=== PATIENT | male | born 1980 | race Caucasian/White ===

== ENCOUNTER 2016-09-04 14:05 | Emergency (ER) | payer SELFPAY ==
[~2016-09-04] VITALS: Ht 185.4 cm; Wt 85.0 kg
--- NOTE | 2016-09-04 14:09 | PD ---
HPI Chief Complaint: altered mental status Time Seen by Provider: 14:09 Travel History International Travel<30 days: No Contact w/Intl Traveler<30days: No Traveled to known affect area: No History of Present Illness HPI 35-year-old male was brought to the emergency room by EMS with history of being found outside the [employer] building altered mental status. The security caught outside the building saw him wandering around upon asking he was told that patient probably had a seizure. Patient was extremely intoxicated and lethargic. As per the paramedics he is on methadone. He was slightly tachycardic upon arrival. He would wake up and open his eyes but the speech was very slurred. Mostly mumbling. Patient was not a reliable historian at that point. [facility] Past Medical History Narrative Medical Unknown past medical, surgical social history. Social History Tobacco Use: Yes Allergies-Medications (Allergen,Severity, Reaction): Coded Allergies: No Known Allergies (Unverified , 09/05/16) Comments No known drug allergies. Reported Meds & Prescriptions Reported Meds & Active Scripts Active Levaquin (Levofloxacin) 750 Mg Tab 750 Mg PO DAILY 7 Days Reported Methadone (Methadone HCl) 40 Mg Tab 45 Mg PO DAILY Seroquel (Quetiapine Fumarate) 300 Mg Tab 300 Mg PO DAILY Narrative Medication List of his medications reviewed from the nursing note. Review of Systems ROS Limitations: Intoxication, Altered Mental Status Except as stated in HPI: all other systems reviewed are Neg Physical Exam Exam Limitations: Intoxication, Altered Mental Status, Poor Historian Narrative GENERAL: Lethargic, somnolent, slurred speech SKIN: Warm and dry. HEAD: Atraumatic. Normocephalic. EYES: Pupils equal and round. No scleral icterus. No injection or drainage. ENT: No nasal bleeding or discharge. Mucous membranes pink and moist. NECK: Trachea midline. No JVD. CARDIOVASCULAR: Regular rate and rhythm. No murmur appreciated. RESPIRATORY: No accessory muscle use. Clear to auscultation. Breath sounds equal bilaterally. GASTROINTESTINAL: Abdomen soft, non-tender, nondistended. Hepatic and splenic margins not palpable. MUSCULOSKELETAL: No obvious deformities. No clubbing. No cyanosis. No edema. NEUROLOGICAL: GCS of 13. No obvious cranial nerve deficits. Motor grossly within normal limits. Slurred speech. PSYCHIATRIC: Appropriate mood and affect; insight and judgment normal. Data Data Last Documented VS Vital Signs Date Time Temp Pulse Resp B/P Pulse Ox O2 Delivery O2 Flow Rate FiO2 09/04/16 17:25 100 09/04/16 15:13 99 21 143/89 Nasal Cannula 2 09/04/16 14:10 98.3 Orders Electrocardiogram (09/04/16 ) Naloxone Inj (Narcan Inj) (09/04/16 14:13) Naloxone Inj (Narcan Inj) (09/04/16 14:16) MDM Medical Decision Making Medical Screen Exam Complete: Yes Emergency Medical Condition: Yes Medical Record Reviewed: Yes Interpretation(s) Twelve-lead EKG was reviewed by me. Normal sinus rhythm, normal axis, nonspecific ST-T wave changes, tachycardia. Heart rate of 103 bpm. Differential Diagnosis Methadone Overdose, postictal Narrative Course 4:21 PM patient had received 2 mg of Narcan initially when he came in. However there was a leak in the IV connector and some medication leaked out. He was given additional 2 mg of Narcan IV soon after which he woke up and started talking. His respirations improved inserted the oxygen saturation. He told me that he has been in halfway for 90 days and was released 3 days ago. He was going to the methadone clinic prior to going to halfway. He did not receive any methadone or any form of opiates in the halfway. He was in withdrawal for first 3 weeks but after that he did fine. However once he came out of the halfway he went back to the methadone clinic. He said he was supposed to be on 25 mg of methadone but today he received 45 mg which she took it. He does not remember what happened after that. He does not remember wondering off in front of the [employer] building. He does not remember the ambulance ride. He doesn't think he had any seizures. He does not have any history of seizures. He is completely sober at this point. I let him know that since he was off opiates for 90 days and technically did detox and that he should not have gone back to the methadone. I have put this on the discharge instructions and he should not receive any more methadone from the methadone clinic. Patient admitted that he has addiction issues. He is calling his friend to come and pick him up. Procedures EKG Prior to Arrival: Yes Diagnosis Primary Impression: Opiate overdose Qualified Code: T40.601A - Opiate overdose, accidental or unintentional, initial encounter Additional Impression: Opiate addiction Qualified Code: F11.229 - Opioid dependence with intoxication with complication Referrals: Primary Care Physician 2 days Additional Instructions: You do not need to be on methadone since you have been off opiates for 90 days while he was in halfway. At this point. Prefer to go back to methadone that could be considered addiction. The painting manager needs to know that and realizes that he should not picture back on methadone. Med/Other Pt SpecificInfo: No Change to Meds Disposition: 01 DISCHARGE HOME Condition: Stable Chloe Khan MD Sep 04, 2016 14:09
[2016-09-04 14:10] VITALS: BP 145/87; PULSE 110; RESP 12; TEMP 98.3; O2SAT 88
[2016-09-04] MEDS ORDERED: NALOXONE HCL 2 MG/2 ML VIAL ONE ×2 (14:13→14:16)
[2016-09-04 14:15] VITALS: O2SAT 95
[2016-09-04] MEDS ORDERED: SERO300T PO (14:26)
[2016-09-04] MEDS ORDERED: METH40TA PO (14:26)
[2016-09-04 14:29] VITALS: BP 154/88; PULSE 107; RESP 19; O2SAT 99
[2016-09-04 15:13] VITALS: BP 143/89; PULSE 99; RESP 21; O2SAT 98
[2016-09-05] MEDS ORDERED: LEVA750T PO (14:35)
--- NOTE | 2016-09-06 | EKG ---
Date Performed: 09/04/2016 Time Performed: 14:13:50 PTAGE: 35 years EKG: SINUS TACHYCARDIA NONSPECIFIC T-WAVE ABNORMALITY ABNORMAL RHYTHM ECG NO PREVIOUS TRACING DOCTOR: Segundo Koroma Interpretating Date/Time 09/05/2016 23:59:45
--- NOTE | 2016-09-09 13:46 | PD.CONS ---
Provisional Diagnosis Admission Date Chilo I. Substance induced mood disorder, opioids uses disorder, on methadone, benzodiazepine use disorder Chilo II. deferred Chilo III. HTN Chilo IV. history of incarcerations and and drugs use disorder Chilo V. 54 History of Present Illness Service Psychiatry Consult Requested By Primary Care Physician Unknown HPI The patient is a 35 years old man, domiciled with his aunt in [place], employed, single, with psychiatric history of opiate use disorder, on a methadone program, benzodiazepines use disorder, history of alcohol use disorder , no previous psychiatric hospitalizations, no previous suicidal attempts, history of incarcerations due to drug-related problems, medical history hypertension, who was brought to the hospital lethargic almost unconscious, in the context of thought overdose with methadone and benzodiazepines. Patient was admitted in the ICU, his mother has expressed the concern that patient might potentially overdosed with SI. Patient was seen for psychiatric evaluation in the ICU, patient was found sitting in a chair, he was calm, cooperative and pleasant. Patient explained that he has been in methadone 180 mg daily for about 3 years. At times he uses benzodiazepines and Seroquel to help him to sleep. He says that he get Xanax and the Seroquel in the street, he says he just do it occasionally. What happened was that he was in [facility] for about 90 days for violation of parole, came out a couple of days ago, went to his methadone program, was restarted in his usual methadone dose, he also used some alcohol and Xanax, but when he used it he passed out. He clarifies that he was not intending to commit suicide, in his mind he was taking his regular dose of methadone "with some Xanax as I have done before, but I get is that since he was a long time with a using the methadone while I was in [facility] my body reacted this way". He denies depressive symptoms, such as anhedonia, hopelessness, helplessness, low energy, low appetite, problems sleeping, he denies suicidal and homicidal ideation, he denies visual and auditory hallucinations. 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 No paranoia, delusions, agitation, aggressive behavior, ideas of reference, thought control was observed or reported at this time. Patient is oriented 3, no gross cognitive impairment observed. His mother, Anali, which by phone [phone], explained that she never say that her son tried to commit suicide, she is says she told to the staff that her son is going to when they for his use of drugs, which is different. She confirms that her son doesn't have any psychiatric history, he has been abusing drugs for a long time, however he has been looking for help and tried to cut his drug use and methadone seems to be helping. Since he is using methadone he has been working more engage in doing useful things, but the problem is the methadone is not enough to stopping use other drugs, he mother states. She does not have any safety concern at this moment, she doesn't think that her son needs psychiatric hospitalization. Review of Systems Constitutional: DENIES: Diaphoretic episodes, Fatigue, Fever, Weight gain, Weight loss, Chills, Dizziness, Change in appetite, Night Sweats Endocrine: DENIES: Heat/cold intolerance, Polydipsia, Polyuria, Polyphagia Eyes: DENIES: Blurred vision, Diplopia, Eye inflammation, Eye pain, Vision loss , Photosensitivity, Double Vision Respiratory: DENIES: Apneas, Cough, Snoring, Wheezing, Hemoptysis, Sputum production, Shortness of breath Cardiovascular: DENIES: Chest pain, Palpitations, Syncope, Dyspnea on Exertion , PND, Lower Extremity Edema, Orthopnea, Claudication Gastrointestinal: DENIES: Abdominal pain, Black stools, Bloody stools, Constipation, Diarrhea, Nausea, Vomiting, Difficulty Swallowing, Anorexia Musculoskeletal: DENIES: Joint pain, Muscle aches, Stiffness, Joint Swelling, Back pain, Neck pain Integumentary: DENIES: Abnormal pigmentation, Nail changes, Pruritus, Rash Hematologic/lymphatic: DENIES: Bruising, Lymphadenopathy Immunologic/allergic: DENIES: Eczema, Urticaria Neurologic: DENIES: Abnormal gait, Headache, Localized weakness, Paresthesias, Seizures, Speech Problems, Tremor, Poor Balance Psychiatric: DENIES: Anxiety, Confusion, Mood changes, Depression, Hallucinations, Agitation, Suicidal Ideation, Homicidal Ideation, Delusions Past Family Social History Coded Allergies: No Known Allergies (Unverified , 09/05/16) Active Scripts Levofloxacin (Levaquin)750 Mg [id number] Mg PO DAILY 7 Days Ref 0 Prov:Deena Guzman DO 09/05/16 Reported Medications Methadone 40 Mg Tab45 Mg PO DAILY Ref 0 09/04/16 Quetiapine (Seroquel)300 Mg [id number] Mg PO DAILY #30 TAB Ref 0 09/04/16 Methadone 180 mg, this dose is not confirmed Family History He denies Social History Patient was born and raised in [place], he lives with his aunt in [place], work in a sole company, he is single, no kids, his highest level of education is high school Mental Status Examination Appearance man, athletic complexity, good hygiene, [facility], he is calm and cooperative Speech: Unremarkable Orientation: x3 Memory: Unremarkable Thought Process: Logical Thought Content: Unremarkable Hallucination Type: None Suicidal Ideation: No Previous Suicide Attempts: No Homicidal Ideation: No Previous Homicide Attempts: No Insight: Good Judgement: WNL Affect: Good Mood: Appropriate Motor Activity: Normal gait Assessment & Plan Problem List: (1) Opiate addiction ICD Code: F11.20 (2) Methadone dependence Assessment & Plan: At the moment of this evaluation the patient does not present any significant, acute or concerning objective or subjective symptomatology of depression, anxiety, caitlyn or psychosis. Patient denies suicidal or homicidal ideation, he denies visual and auditory hallucinations. Patient is calm, cooperative, pleasant, coherent and logical in his interaction with psychiatrist. His recent overdose with methadone and benzodiazepines since to be consequence of an accident and poor judgment, since patient was in [facility] days and was restarted in a high dose of methadone and in top of that he used benzodiazepines, rather than a suicidal intention/depression. His mother, use as a collateral information, clarifies that she is in total agreement with the idea that the patient did not try to overdose with suicidal intention and he doesn't benefit of a psychiatric hospitalization. At this moment the patient doesn't need any immediate psychiatric intervention, he does not meet criteria for inpatient admission. Tam act will be lifted. Extensive support, motivation psycho education provided. Patient is psychiatrically cleared to be discharged continue his methadone program. ICD Code: F11.20 (3) Opiate overdose ICD Code: T40.601A Assessment & Plan Estimated LOS: days Problem Qualifiers (1) Opiate addiction: Qualified Code: F11.229 - Opioid dependence with intoxication with complication (2) Opiate overdose: Qualified Code: T40.601A - Opiate overdose, accidental or unintentional, initial encounter Golden Ray MD Sep 09, 2016 13:46
== END 2016-09-04 17:40 | disposition home or self-care (01) ==
LOC: NEPC 14:05
DX: F11.229 Opioid dependence with intoxication, unspecified (principal); R00.0 Tachycardia, unspecified
CPT/HCPCS: 93005; 96374; 99285; J2310

== ENCOUNTER 2016-09-05 08:33 | Inpatient (IN) | payer OTHER ==
[2016-09-05] VITALS (14 sets, daily range): BP systolic 103–148; BP diastolic 56–93; PULSE 79–108; RESP 8–21; TEMP 97.8–98.3; O2SAT 88–100
[~2016-09-05] VITALS: Ht 182.9 cm; Wt 80.3 kg
[~2016-09-05 08:33] MED LIST: METH40TA PO; SERO300T PO
[2016-09-05] MEDS ORDERED: SODIUM CHLORIDE 0.9% FLUSH 5 ML FLUSH IVF PRN (08:45)
[2016-09-05] MEDS ORDERED: SODIUM CHLOR 0.9% 1000 ML INJ 1,000 ML IV ONE (08:45)
--- NOTE | 2016-09-05 08:51 | PD ---
HPI Chief Complaint: AMS Time Seen by Provider: 08:41 Travel History International Travel<30 days: No Contact w/Intl Traveler<30days: No History of Present Illness HPI Patient is a 35-year-old male who presents to emergency room by a EVAC for evaluation of lethargy. As per EMS, patient was found in the bathroom of the methadone clinic sleeping. Patient did not receive his daily dose of methadone yet, patient denies using any drugs or alcohol last night. Patient reports that he is just tired as he did not sleep last night at all. Patient denies suicidal or homicidal ideations. Patient denies any chest pain or shortness of breath. Patient with no complaints while in the emergency room. PFSH Past Medical History Bipolar Disorder: Yes Anxiety: Yes Depression: Yes Diminished Hearing: No Inguinal Hernia: Yes Musculoskeletal: Yes (CHRONIC NECK AND BACK ) Psychiatric: Yes Immunizations Current: No Past Surgical History Abdominal Surgery: Yes (HERNIA REPAIR ) Social History Alcohol Use: No Tobacco Use: Yes Substance Use: Yes (OPIATES , ON METHADONE ) Allergies-Medications (Allergen,Severity, Reaction): Coded Allergies: No Known Allergies (Unverified , 09/05/16) Reported Meds & Prescriptions Reported Meds & Active Scripts Active Levaquin (Levofloxacin) 750 Mg Tab 750 Mg PO DAILY 7 Days Reported Methadone (Methadone HCl) 40 Mg Tab 45 Mg PO DAILY Seroquel (Quetiapine Fumarate) 300 Mg Tab 300 Mg PO DAILY Review of Systems General / Constitutional: No: Fever Eyes: No: Visual changes HENT: No: Headaches Cardiovascular: No: Chest Pain or Discomfort Respiratory: No: Shortness of Breath Gastrointestinal: No: Abdominal Pain Genitourinary: No: Dysuria Musculoskeletal: No: Pain Skin: No Rash Neurologic: No: Weakness Psychiatric: No: Depression Endocrine: No: Polydipsia Hematologic/Lymphatic: No: Easy Bruising Physical Exam Narrative GENERAL: No acute distress, nontoxic SKIN: Warm and dry. HEAD: Atraumatic. Normocephalic. EYES: Pupils equal and round. No scleral icterus. No injection or drainage. Pupils are 3 and reactive ENT: No nasal bleeding or discharge. Mucous membranes pink and moist. NECK: Trachea midline. No JVD. CARDIOVASCULAR: Regular rate and rhythm. No murmur appreciated. RESPIRATORY: No accessory muscle use. Clear to auscultation. Breath sounds equal bilaterally. GASTROINTESTINAL: Abdomen soft, non-tender, nondistended. Hepatic and splenic margins not palpable. MUSCULOSKELETAL: No obvious deformities. No clubbing. No cyanosis. No edema. NEUROLOGICAL: Awake and alert. No obvious cranial nerve deficits. Motor grossly within normal limits. Normal speech. Data Data Last Documented VS Vital Signs Date Time Temp Pulse Resp B/P Pulse Ox O2 Delivery O2 Flow Rate FiO2 09/05/16 16:00 100 100 09/05/16 15:42 98 8 103/65 Non-Rebreather 09/05/16 14:21 3 09/05/16 08:40 97.8 Orders Complete Blood Count With Diff (09/05/16 08:41) Comprehensive Metabolic Panel (09/05/16 08:41) Urinalysis - C+S If Indicated (09/05/16 08:41) Electrocardiogram (09/05/16 08:41) Oximetry (09/05/16 08:41) Iv Access Insert/Monitor (09/05/16 08:41) Ecg Monitoring (09/05/16 08:41) Sodium Chloride 0.9% Flush (Ns Flush) (09/05/16 08:45) Drug Screen, Random Urine (09/05/16 08:41) Alcohol (Ethanol) (09/05/16 08:41) Salicylates (Aspirin) (09/05/16 08:41) Tylenol (Acetaminophen) (09/05/16 08:41) Sodium Chlor 0.9% 1000 Ml Inj (Ns 1000 M (09/05/16 08:45) Chest, Single Ap (09/05/16 ) Ct Brain W/O Iv Contrast(Rout) (09/05/16 ) Urine Culture (09/05/16 11:00) Azithromycin (Zithromax) (09/05/16 12:45) Levofloxacin 750 Mg Premix Inj (Levaquin (09/05/16 14:45) Ct Pulmonary Angiogram (09/05/16 14:36) Naloxone Inj (Narcan Inj) (09/05/16 15:44) Naloxone Inj (Narcan Inj) (09/05/16 15:46) Ondansetron Inj (Zofran Inj) (09/05/16 15:47) Etomidate Inj (Amidate Inj) (09/05/16 15:50) Succinylcholine Inj (Quelicin Inj) (09/05/16 15:50) Chest, Single Ap (09/05/16 ) Propofol 1000 Mg/100 Ml Inj (Diprivan 10 (09/05/16 16:00) Succinylcholine Inj (Quelicin Inj) (09/05/16 16:00) Etomidate Inj (Amidate Inj) (09/05/16 16:00) Ob/Psych Drug Screen, Urine (09/05/16 16:05) Ammonia (09/05/16 16:05) Iohexol 350 Inj (Omnipaque 350 Inj) (09/05/16 16:07) Admit Order (Ed Use Only) (09/05/16 16:07) Electrocardiogram (09/05/16 ) Ur Bath Salts (09/05/16 11:00) Ur Heroin (09/05/16 11:00) Ur K2 Spice (09/05/16 11:00) Ur Ecstasy (09/05/16 11:00) Ur Methadone (09/05/16 11:00) Phencyclidine Urine (Pcp) (09/05/16 11:00) Labs Laboratory Tests Test 09/05/16 09/05/16 08:50 11:00 White Blood Count 11.2 TH/MM3 Red Blood Count 4.09 MIL/MM3 Hemoglobin 11.8 GM/DL Hematocrit 34.9 % Mean Corpuscular Volume 85.4 FL Mean Corpuscular Hemoglobin 28.9 PG Mean Corpuscular Hemoglobin 33.8 % Concent Red Cell Distribution Width 15.6 % Platelet Count 257 TH/MM3 Mean Platelet Volume 7.7 FL Neutrophils (%) (Auto) 69.3 % Lymphocytes (%) (Auto) 19.0 % Monocytes (%) (Auto) 8.8 % Eosinophils (%) (Auto) 2.3 % Basophils (%) (Auto) 0.6 % Neutrophils # (Auto) 7.8 TH/MM3 Lymphocytes # (Auto) 2.1 TH/MM3 Monocytes # (Auto) 1.0 TH/MM3 Eosinophils # (Auto) 0.3 TH/MM3 Basophils # (Auto) 0.1 TH/MM3 CBC Comment DIFF FINAL Differential Comment Sodium Level 138 MEQ/L Potassium Level 3.5 MEQ/L Chloride Level 101 MEQ/L Carbon Dioxide Level 29.4 MEQ/L Anion Gap 8 MEQ/L Blood Urea Nitrogen 14 MG/DL Creatinine 0.84 MG/DL Estimat Glomerular Filtration 103 ML/MIN Rate Random Glucose 123 MG/DL Calcium Level 8.7 MG/DL Total Bilirubin 0.3 MG/DL Aspartate Amino Transf 28 U/L (AST/SGOT) Alanine Aminotransferase 17 U/L (ALT/SGPT) Alkaline Phosphatase 130 U/L Total Protein 7.5 GM/DL Albumin 3.4 GM/DL Salicylates Level LESS THAN 1.7 MG/DL Acetaminophen Level LESS THAN 2.0 MCG/ML Ethyl Alcohol Level LESS THAN 3 MG/DL Urine Color YELLOW Urine Turbidity CLEAR Urine pH 5.5 Urine Specific Archer 1.012 Urine Protein TRACE mg/dL Urine Glucose (UA) NEG mg/dL Urine Ketones NEG mg/dL Urine Occult Blood MOD Urine Nitrite NEG Urine Bilirubin NEG Urine Urobilinogen LESS THAN 2.0 MG/DL Urine Leukocyte Esterase NEG Urine RBC 82 /hpf Urine WBC 2 /hpf Urine WBC Clumps MOD Urine Bacteria FEW /hpf Urine Mucus FEW /lpf Microscopic Urinalysis Comment CULTURE INDICATED Urine Opiates Screen NEG Urine Barbiturates Screen NEG Urine Amphetamines Screen NEG Urine Benzodiazepines Screen POS Urine Cocaine Screen NEG Urine Cannabinoids Screen NEG MDM Medical Decision Making Medical Screen Exam Complete: Yes Emergency Medical Condition: Yes Interpretation(s) EKG at 0909 Sinus tach at 101bpm, qt/qtc: 328/386, non specific t wave changes Vital Signs Date Time Temp Pulse Resp B/P Pulse Ox O2 Delivery O2 Flow Rate FiO2 09/05/16 08:40 21 95 Nasal Cannula 3 09/05/16 08:40 97.8 102 21 148/93 90 CBC & BMP Diagram 09/05/16 08:50 Differential Diagnosis polysubstance abuse, electrolyte abnormalities, ich, drug overdose Narrative Course Patient is a 35 year old male who presents to ER by EVAC for evaluation of lethargy. Patient was found in the bathroom of the methadone clinic sleeping, he apparently did not receive his dose of methadone today. Patient denies using any drugs/alcohol. Reports that "i didnt sleep last night" - patient cannot tell me why he did not sleep last night. Patient with no c/o at this time. Patient is lethargic on evaluation. patient was placed on surveillance monitor upon evaluation in ER. Labs as well as Tox screen ordered as well as ct of head. will continue to monitor patient All labs and all studies reviewed. Patient with pneumonia as well as urinary tract infection. CT of the head with no acute intracranial disease. X-ray of chest with questionable infiltrates in the right mid lung and left lung base Plan to treat patient with antibiotics. was called to bedside as patient became apneic breathing 4breaths per minute, patient unresponsive to painful stimuli, Patient was given a trial of Narcan 0.4mg x 2 - as patient was found in bathroom unresponsive at methadone clinic - no response to methadone - UDS only positive for benzo's Given pt's apnea, patient was intubated for airway protection Case reviewed with Dr. Spencer, except patient to ICU for admission. EKG ordered. CT of the chest abdomen pelvis pending. Concern for possible drug overdose as there was an anonymous phone call from a friend reporting that patient had suicidal evaluations. Critical Care Narrative Aggregate critical care time was 30 minutes. Time to perform other separately billable procedures was not included in the critical care time. My time did not include minutes spent treating any other patients simultaneously or on activities that did not directly contribute to the patient's treatment. The services I provided to this patient were to treat and/or prevent clinically significant deterioration that could result in: , decompensation, deterioration I provided critical care services requiring my management, as noted below: Chart data review, documentation time, medication orders and management, vital sign assessments/reviewing monitor data, ordering and reviewing lab tests, ordering and interpreting/reviewing x-rays and diagnostic studies, care of the patient and discussion of the patient with the admitting physicians. Procedures Procedure Narrative After the risks and benefits were discussed the following procedure was performed: INTUBATION: The patient was put in optimal position for the procedure. Rapid sequence intubation was initiated by me using 20 milligrams of etomidate IV and 100 milligrams of succinylcholine IV. The patient was intubated with a 7.5 cuffed endotracheal tube. Tube placement was confirmed by visualization of the tube and balloon passing through the cords, capnometry and subsequent chest x-ray. Breath sounds were equal and well aerated bilaterally postintubation. No breath sounds over stomach. Patient tolerated procedure well. Physician Communication Physician Communication Discussed case with Dr. Spencer Diagnosis Primary Impression: UTI (urinary tract infection) Qualified Code: N30.01 - Acute cystitis with hematuria Additional Impressions: Pneumonia Qualified Code: J18.9 - Pneumonia due to infectious organism, unspecified laterality, unspecified part of lung Drug abuse Ventilator dependence multilobar pneumonia Admitting Information Admitting Physician Requests: Admit Patient Instructions: General Instructions Additional Instructions: Please follow-up with your primary care doctor Return to emergency room as needed Please follow-up with cultures from today Med/Other Pt SpecificInfo: Prescription(s) given Scripts Levofloxacin (Levaquin)750 Mg Bpb601 Mg PO DAILY 7 Days Ref 0 Prov:Deena Guzman DO 09/05/16 Disposition: 01 DISCHARGE HOME Deena Guzman DO Sep 05, 2016 08:51
[2016-09-05 09:27] LABS: AUTOMATED NEUTROPHIL # 7.8 TH/MM3 (1.8-7.7); BASOPHIL # 0.1 TH/MM3 (0-0.2); BASOPHIL % 0.6 % (0.0-2.0); EOSINOPHIL # 0.3 TH/MM3 (0-0.4); EOSINOPHIL % 2.3 % (0.0-4.0); HEMATOCRIT 34.9 % (39.0-51.0); HEMO FLAGS DIFF FINAL; LYMPHOCYTE # 2.1 TH/MM3 (1.0-4.8); MEAN CELL VOLUME 85.4 FL (80.0-100.0); MEAN CORPUSCULAR HEMOGLOBIN 28.9 PG (27.0-34.0); MEAN CORPUSCULAR HGB CONC 33.8 % (32.0-36.0); MONO % 8.8 % (0.0-8.0); NEUT % 69.3 % (16.0-70.0); PLATELET COUNT 257 TH/MM3 (150-450); RED BLOOD COUNT 4.09 MIL/MM3 (4.50-5.90); RED CELL DISTRIBUTION WIDTH 15.6 % (11.6-17.2); WHITE BLOOD COUNT 11.2 TH/MM3 (4.0-11.0)
[2016-09-05 09:57] LABS: ANION GAP 8 MEQ/L (5-15)
[2016-09-05 09:58] LABS: ALKALINE PHOSPHATASE 130 U/L (45-117); ALT (GPT) 17 U/L (12-78); AST (GOT) 28 U/L (15-37); BICARBONATE 29.4 MEQ/L (21.0-32.0); BLOOD UREA NITROGEN 14 MG/DL (7-18); CHLORIDE 101 MEQ/L (98-107); GLOMERULAR FILTRATION RATE 103 ML/MIN (>89); POTASSIUM 3.5 MEQ/L (3.5-5.1); SODIUM (NA) 138 MEQ/L (136-145); TOTAL BILIRUBIN ADULT 0.3 MG/DL (0.2-1.0)
[2016-09-05 10:10] LABS: ACETAMINOPHEN LESS THAN 2.0 MCG/ML (10.0-30.0)
--- NOTE | 2016-09-05 10:54 | RADRPT ---
EXAM DATE/TIME: 09/05/2016 10:35 [facility] COMPARISON: No previous studies available for comparison. INDICATIONS: Cough MEDICAL HISTORY: None. SURGICAL HISTORY: None. ENCOUNTER: Initial ACUITY: 1 day PAIN SCORE: Non-responsive. LOCATION: Bilateral chest FINDINGS: A single view of the chest demonstrates there may be some minimal air space disease in the left lung base. Also questionable air space disease right mid lung zone, could be small areas of pneumonia. L eft upper lung is clear. Heart and mediastinum unremarkable. CONCLUSION: Questionable infiltrates right mid lung zone and left lung base. Neal Mehta MD on September 05, 2016 at 10:39 Board Certified Radiologist. This report was verified electronically.
--- NOTE | 2016-09-05 11:22 | RADRPT ---
EXAM DATE/TIME: 09/05/2016 11:10 [facility] COMPARISON: No previous studies available for comparison. INDICATIONS : Altered mental status, possible overdose. RADIATION DOSE: 38.79 CTDIvol (mGy) MEDICAL HISTORY : Arthritis. SURGICAL HISTORY : Fusion, cervical. ENCOUNTER: Initial ACUITY: 1 day PAIN SCALE: Non-responsive LOCATION: cranial TECHNIQUE: Multiple contiguous axial images were obtained of the head. Using automated exposure control and adj ustment of the mA and/or kV according to patient size, radiation dose was kept as low as reasonably a chievable to obtain optimal diagnostic quality images. FINDINGS: CEREBRUM: The ventricles are normal for age. No evidence of midline shift, mass lesion, hemorrhage or acute in farction. No extra-axial fluid collections are seen. POSTERIOR FOSSA: The cerebellum and brainstem are intact. The 4th ventricle is midline. The cerebellopontine angle i s unremarkable. EXTRACRANIAL: The visualized portion of the orbits is intact. SKULL: The calvaria is intact. No evidence of skull fracture. CONCLUSION: No acute intracranial disease. Kike Serrano MD on September 05, 2016 at 11:18 Board Certified Radiologist. This report was verified electronically.
[2016-09-05 11:31] LABS: AMPHETAMINE, URINE NEG (NEG); BARBITURATES, URINE NEG (NEG); COCAINE, URINE NEG (NEG)
[2016-09-05 11:39] LABS: BLOOD, URINE MOD (NEG); COMMENT (UR) CULTURE INDICATED; CULTURE IF INDICATED CULTURE INDICATED; GLUCOSE,URINE NEG (NEG); KETONE, URINE NEG (NEG); MUCUS URINE FEW /lpf (OCC); NITRITE,URINE NEG (NEG); PH, URINE 5.5 (5.0-8.5); URINE COLOR YELLOW (YELLW/STRAW)
[2016-09-05 11:43] LABS: BACTERIA, URINE FEW /hpf
[2016-09-05] MEDS ORDERED: AZITHROMYCIN 250 MG TAB PO ONE (12:45)
[2016-09-05] MEDS ORDERED: LEVA750T PO (14:35)
[2016-09-05] MEDS ORDERED: LEVOFLOXACIN 750 MG PREMIX INJ 150 ML IV ONE (14:45)
[2016-09-05] MEDS ORDERED: NALOXONE HCL 0.4 MG/ML AMP ONE ×2 (15:44→15:46)
[2016-09-05] MEDS ORDERED: ONDANSETRON HCL 4 MG/2 ML VIAL ONE (15:47)
[2016-09-05] MEDS ORDERED: SUCCINYLCHOLINE CHLORIDE 200 MG/10 ML VIAL ONE (15:50)
[2016-09-05] MEDS ORDERED: ETOMIDATE 20 MG/10 ML VIAL ONE (15:50)
[2016-09-05] MEDS ORDERED: ETOMIDATE 20 MG/10 ML VIAL IV PUSH ONE (16:00)
[2016-09-05] MEDS ORDERED: SUCCINYLCHOLINE CHLORIDE 200 MG/10 ML VIAL IV PUSH ONE (16:00)
[2016-09-05] MEDS ORDERED: IOHEXOL 350 MG/ML 10 ML VIAL (for RAD DIAG) IV ONE (16:07)
--- NOTE | 2016-09-05 16:25 | RADRPT ---
EXAM DATE/TIME: 09/05/2016 16:08 [facility] COMPARISON: No previous studies available for comparison. INDICATIONS : Possible overdose/respiratory failure. IV CONTRAST: 58 cc Omnipaque 350 (iohexol) IV RADIATION DOSE: 23.27 CTDIvol (mGy) MEDICAL HISTORY : Substance abuse. SURGICAL HISTORY : Hernia repair. ENCOUNTER: Initial ACUITY: 1 day PAIN SCALE: Non-responsive LOCATION: chest TECHNIQUE: Volumetric scanning of the chest was performed using a pulmonary embolism protocol MIP images were re constructed. Using automated exposure control and adjustment of the mA and/or kV according to patien t size, radiation dose was kept as low as reasonably achievable to obtain optimal diagnostic quality images. FINDINGS: PULMONARY ARTERIES: No filling defects are seen in the pulmonary arteries through the segmental level. LUNGS: There some groundglass infiltrates in the right upper lobe. There is almost complete opacification of the left lower lobe with marked narrowing of both the left upper lobe and left lower lobe bronchi. I don't see a mass around the bronchi but both of the left bronchi are narrowed. Bronchoscopy is recom mended. PLEURAE: There is no pleural thickening or pleural effusion. MEDIASTINUM: Shift of the mediastinum from right to left with volume loss in the left lung . There is good visual ization of the great vessels of the middle mediastinum. No evidence of mediastinal or hilar adenopat hy/mass. MUSCULOSKELETAL: Within normal limits for patient age. MISCELLANEOUS: The visualized upper abdominal organs demonstrate no acute abnormality. CONCLUSION: Significant infiltrate with near complete opacification of the left lower lobe. Both the left upper l obe and left lower lobe bronchi are markedly narrowed. Bronchoscopy is recommended to evaluate the le ft bronchi. Airspace of the right upper lobe possible pneumonia. No evidence of pulmonary emboli. Neal Mehta MD on September 05, 2016 at 16:19 Board Certified Radiologist. This report was verified electronically.
--- NOTE | 2016-09-05 16:27 | RADRPT ---
EXAM DATE/TIME: 09/05/2016 16:08 [facility] COMPARISON: No previous studies available for comparison. INDICATIONS : Found unresponsive. IV CONTRAST: 60 cc Omnipaque 350 (iohexol) IV ; Cumulative dose for multiple exams. ORAL CONTRAST: No oral contrast ingested. RADIATION DOSE: 12.96 CTDIvol (mGy) MEDICAL HISTORY : Non-responsive. SURGICAL HISTORY : Non-responsive. ENCOUNTER: Initial ACUITY: 1 day PAIN SCALE: Non-responsive LOCATION: Bilateral lower quadrant TECHNIQUE: Volumetric scanning of the abdomen and pelvis was performed. Using automated exposure control and ad justment of the mA and/or kV according to patient size, radiation dose was kept as low as reasonably achievable to obtain optimal diagnostic quality images. FINDINGS: LOWER LUNGS: Dense infiltrate in the left lower lobe, evaluate chest CT report LIVER: Homogeneous density without lesion. There is no dilation of the biliary tree. No calcified gallston es. SPLEEN: Normal size without lesion. PANCREAS: Within normal limits. KIDNEYS: Normal in size and shape. There is no mass, stone or hydronephrosis. ADRENAL GLANDS: Within normal limits. VASCULAR: There is no aortic aneurysm. BOWEL/MESENTERY: The stomach, small bowel, and colon demonstrate no acute abnormality. There is no free intraperitone al air or fluid. ABDOMINAL WALL: Within normal limits. RETROPERITONEUM: There is no lymphadenopathy. BLADDER: No wall thickening or mass. REPRODUCTIVE: Within normal limits. INGUINAL: There is no lymphadenopathy or hernia. MUSCULOSKELETAL: Erosive changes to both sacroiliac joints. CONCLUSION: Normal examination of the abdomen or pelvis. Dense infiltrate left lower lobe. Erosive changes both S I joints. Neal Mehta MD on September 05, 2016 at 16:25 Board Certified Radiologist. This report was verified electronically.
[2016-09-05] MEDS: PROPOFOL 1000 MG/100 ML INJ 100 ML IV SCH ×2 (16:49→22:20)
[2016-09-05] MEDS ORDERED: RESP: ALBUTEROL 2.5 MG/IPRATROPIUM 0.5 MG NEB (PRN) INH (17:00)
[2016-09-05] MEDS ORDERED: MISCELLANEOUS NURSING INFORMATION XX SCH (17:00)
[2016-09-05] MEDS ORDERED: CHLORHEXIDINE GLUCONATE 2 % 1 PACK (2 CLOTHS) TOP PRN (17:00)
[2016-09-05] MEDS ORDERED: SENNOSIDES 8.6 MG TAB PO PRN (17:00)
[2016-09-05] MEDS ORDERED: GLUCAGON 1 MG/ML VIAL OTHER PRN (17:00)
[2016-09-05] MEDS ORDERED: MAGNESIUM SULFATE INJ 4 GM in SODIUM CHLORIDE 0.9% INJ 92 ML IV PRN (17:00)
[2016-09-05] MEDS ORDERED: DEXTROSE 50% IN WATER 50 ML VIAL(D50) IV PUSH PRN (17:00)
[2016-09-05] MEDS ORDERED: POTASSIUM CHLOR 40 MEQ PREMIX 100 ML IV PRN ×2 (17:00)
[2016-09-05] MEDS ORDERED: POTASSIUM PHOSPHATE MONOBASIC 500 MG TAB PO/TUBE PRN (17:00)
[2016-09-05] MEDS ORDERED: MAGNESIUM OXIDE 400 MG TAB PO PRN (17:00)
[2016-09-05] MEDS ORDERED: MAGNESIUM SULFATE INJ 2 GM in SODIUM CHLORIDE 0.9% INJ 96 ML IV PRN (17:00)
[2016-09-05] MEDS ORDERED: SODIUM PHOSPHATE INJ 30 MMOL in SODIUM CHLOR 0.9% 250 ML INJ 240 ML IV PRN (17:00)
[2016-09-05] MEDS ORDERED: POTASSIUM CHLOR 20 MEQ PREMIX 100 ML IV PRN ×2 (17:00)
[2016-09-05] MEDS ORDERED: ACETAMINOPHEN 325 MG TAB PO PRN (17:00)
[2016-09-05] MEDS ORDERED: ONDANSETRON HCL 4 MG/2 ML VIAL IV PRN (17:00)
[2016-09-05] MEDS ORDERED: POTASSIUM PHOSPHATE INJ 30 MMOL in SODIUM CHLOR 0.9% 250 ML INJ 250 ML IV PRN (17:00)
[2016-09-05] MEDS ORDERED: POTASSIUM CL 40 MEQ/30 ML LIQ UDC PO/TUBE PRN ×2 (17:00)
--- NOTE | 2016-09-05 17:26 | HHI.HP ---
HPI Service Critical Care Medicine Primary Care Physician Unknown Admission Diagnosis Vent dependent respiratory failure, Drug overdose Diagnosis: Travel History International Travel<30 Days: No Contact w/Intl Traveler <30 Da: No Traveled to Known Affected Are: No History of Present Illness This is a 35-year-old male presented to the ED approximately 7 hours ago for evaluation of lethargy. As per history, patient was found in the bathroom of the methadone clinic sleeping. Patient did not receive his daily dose of methadone today. The patient denies using any drugs or alcohol last night. Patient reports that he is just tired as he did not sleep last night at all. Patient denies suicidal or homicidal ideations. The patient denied any shortness of breath or chest pain. Over the last 7 hours while in the ED the patient became progressively more lethargic with subsequent respiratory depression, with a respiratory rate of 4 and required emergent intubation, and sinus tachycardia. U tox screen was performed in the ED, which revealed positive for benzodiazepines. A phone call was received by Dr. Guzman by a concerned friend, that the patient was suicidal and may have ingested a substance, of note the patent's prescribed Seroquel. Imaging studies were performed CT head no acute abnormality . CT chest and abdomen pending. Expanded U tox was obtained results are pending. The patient's only active medication was noted to be Seroquel. Imaging studies revealed infiltrate right midline the patient received left level levofloxacin, azithromycin and 2 L of normal saline in the ED. Critical care medicine is consulted for treatment and management. History PFSH Past Medical History Bipolar Disorder: Yes Anxiety: Yes Depression: Yes Diminished Hearing: No Inguinal Hernia: Yes Musculoskeletal: Yes (CHRONIC NECK AND BACK ) Psychiatric: Yes Immunizations Current: No Past Surgical History Abdominal Surgery: Yes (HERNIA REPAIR ) Social History Alcohol Use: No Tobacco Use: Yes Substance Use: Yes (OPIATES , ON METHADONE ) Allergies-Medications Allergies-Medications (Allergen,Severity, Reaction): Coded Allergies: No Known Allergies (Unverified , 09/05/16) Reported Meds & Prescriptions Reported Meds & Active Scripts Active Levaquin (Levofloxacin) 750 Mg Tab 750 Mg PO DAILY 7 Days Reported Methadone (Methadone HCl) 40 Mg Tab 45 Mg PO DAILY Seroquel (Quetiapine Fumarate) 300 Mg Tab 300 Mg PO DAILY ROS Review of Systems General / Constitutional: No: Fever Eyes: No: Visual changes HENT: No: Headaches Cardiovascular: No: Chest Pain or Discomfort Respiratory: No: Shortness of Breath Gastrointestinal: No: Abdominal Pain Genitourinary: No: Dysuria Musculoskeletal: No: Pain Skin: No Rash Neurologic: No: Weakness Psychiatric: No: Depression Endocrine: No: Polydipsia Hematologic/Lymphatic: No: Easy Bruising Physical Exam Vital Signs Vital Signs Date Time Temp Pulse Resp B/P Pulse Ox O2 Delivery O2 Flow Rate FiO2 09/05/16 16:36 97 136/81 96 Ventilator 09/05/16 15:42 98 8 103/65 88 Non-Rebreather 100 09/05/16 14:21 108 20 118/66 99 Nasal Cannula 3 09/05/16 12:00 98 18 132/76 99 Nasal Cannula 3 09/05/16 10:00 94 18 110/76 99 Nasal Cannula 3 09/05/16 08:40 102 21 96 Nasal Cannula 3 09/05/16 08:40 21 95 Nasal Cannula 3 09/05/16 08:40 97.8 102 21 148/93 90 Physical Exam GENERAL: Critically ill-appearing male, intubated currently on no sedation nonresponsive SKIN: Warm and dry. HEAD: Atraumatic. Normocephalic. EYES: Pupils equal and round. 2 mm. No scleral icterus. No injection or drainage. ENT: No nasal bleeding or discharge. Mucous membranes pink and moist. NECK: Trachea midline. No JVD. CARDIOVASCULAR: Tachycardiac, regular rhythm. RESPIRATORY: Mechanical ventilation. Coarse rhonchi upon auscultation bilateral lobes R.L. Breath sounds equal bilaterally. GASTROINTESTINAL: Abdomen soft, non-tender, nondistended. No guarding. MUSCULOSKELETAL: Extremities without clubbing, cyanosis, or edema. No obvious deformities. NEUROLOGICAL: GCS 3T. nonresponsive Laboratory Laboratory Tests Test 09/05/16 09/05/16 08:50 11:00 White Blood Count 11.2 Red Blood Count 4.09 Hemoglobin 11.8 Hematocrit 34.9 Mean Corpuscular Volume 85.4 Mean Corpuscular Hemoglobin 28.9 Mean Corpuscular Hemoglobin 33.8 Concent Red Cell Distribution Width 15.6 Platelet Count 257 Mean Platelet Volume 7.7 Neutrophils (%) (Auto) 69.3 Lymphocytes (%) (Auto) 19.0 Monocytes (%) (Auto) 8.8 Eosinophils (%) (Auto) 2.3 Basophils (%) (Auto) 0.6 Neutrophils # (Auto) 7.8 Lymphocytes # (Auto) 2.1 Monocytes # (Auto) 1.0 Eosinophils # (Auto) 0.3 Basophils # (Auto) 0.1 CBC Comment DIFF FINAL Differential Comment Sodium Level 138 Potassium Level 3.5 Chloride Level 101 Carbon Dioxide Level 29.4 Anion Gap 8 Blood Urea Nitrogen 14 Creatinine 0.84 Estimat Glomerular Filtration 103 Rate Random Glucose 123 Calcium Level 8.7 Total Bilirubin 0.3 Aspartate Amino Transf 28 (AST/SGOT) Alanine Aminotransferase 17 (ALT/SGPT) Alkaline Phosphatase 130 Total Protein 7.5 Albumin 3.4 Salicylates Level LESS THAN 1.7 Acetaminophen Level LESS THAN 2.0 Ethyl Alcohol Level LESS THAN 3 Urine Color YELLOW Urine Turbidity CLEAR Urine pH 5.5 Urine Specific [place] 1.012 Urine Protein TRACE Urine Glucose (UA) NEG Urine Ketones NEG Urine Occult Blood MOD Urine Nitrite NEG Urine Bilirubin NEG Urine Urobilinogen LESS THAN 2.0 Urine Leukocyte Esterase NEG Urine RBC 82 Urine WBC 2 Urine WBC Clumps MOD Urine Bacteria FEW Urine Mucus FEW Microscopic Urinalysis Comment CULTURE INDICATED Urine Opiates Screen NEG Urine Barbiturates Screen NEG Urine Amphetamines Screen NEG Urine Benzodiazepines Screen POS Urine Cocaine Screen NEG Urine Cannabinoids Screen NEG Date/Time Procedure Status Source Growth 09/05/16 11:00 Urine Culture Received Urine Random Urine Pending Result Diagram: 09/05/16 0850 09/05/[address] Angiography 09/05/16 1436 Signed Impressions: Service Date/Time: September 16:08 - CONCLUSION: Significant infiltrate with near complete opacification of the left lower lobe. Both the left upper lobe and left lower lobe bronchi are markedly narrowed. Bronchoscopy is recommended to evaluate the left bronchi. Airspace of the right upper lobe possible pneumonia. No evidence of pulmonary emboli. Neal Mehta MD Head CT 09/05/16 0000 Signed Impressions: Service Date/Time: September 11:10 - CONCLUSION: No acute intracranial disease. Kike Serrano MD Chest X-Ray 09/05/16 0000 Signed Impressions: Service Date/Time: September 10:35 - CONCLUSION: Questionable infiltrates right mid lung zone and left lung base. Neal Mehta MD Abdomen/Pelvis CT 09/05/16 0000 Signed Impressions: Service Date/Time: September 16:08 - CONCLUSION: Normal examination of the abdomen or pelvis. Dense infiltrate left lower lobe. Erosive changes both SI joints. Neal Mehta MD Septic Shock Reassessment Heart: Other (sinus tachycardia) Lungs: Course Skin: Warm Peripheral Pulses: Bounding Right Radial Bounding Left Radial Bounding Left Popliteal Bounding Right Dorsalis Pedis Assessment and Plan Assessment and Plan Plan by systems: Neurologic: Toxic Encephalopathy Suicidal ideations Patient's prescription medications include Seroquel, symptomatology suspicious for overdose Contact poison control ([facility])-understanding treatment is supportive Propofol infusion for sedation Sedation vacation daily Follow-up urine toxicity screen Psychiatry consult when clinically indicated Respiratory: Acute hypoxemic respiratory failure Multilobular Pneumonia CXR 3/-questionable infiltrate right mid lung, possible pneumonia CT chest 09/05-complete left lower lobe opacification, right upper lobe possible pneumonia Pulmonology to perform bronchoscopy2/2 Left bronchi narrowing and BAL to obtain specimens to send for culture Begin empiric antibiotic- Zosyn and Azithromycin Bronchodilators every 6 hours scheduled, and every 2 hours when necessary Maintain head of bed 30 SBT trials daily Cardiovascular: Sinus tachycardia Volume resuscitation, the patient received 2 L normal saline in ED Serial EKGs-possible Seroquel toxicity monitor QTc prolongation, at 0900am- 399 Maintain map greater than 65mmHg, currently normotensive Renal: Insert Yanes -- Strict I/Os FEN/GI: Replete electrolytes per ICU protocol Obtain magnesium and phosphorus level Monitor BMP Maintain nothing by mouth status Insert OGT Bowel regimen Zofran for nausea Pepcid GI prophylaxis Heme/ID: Community-acquired pneumonia Mild leukocytosis Obtain blood and urine cultures UTI From bronchoscopy obtain BAL sent for culture WBC count 11.2, continue to monitor CBC Empiric antibiotics Vanc , Zosyn and Azithromycin Endocrine: Glucose monitoring per ICU protocol, low-dose regimen -- SSI Prophylaxis: GI Prophylaxis Pepcid DVT Prophylaxis -- SCDs Lovenox 40 mg /day Lines: Peripheral IVs 2. Central line if indicated. Dispo: my billing statement This patient remains critically ill with one or more organ systems which are or may become a threat to life. I have spent in excess of 49 minutes discontinuously in the care and management of this patient. This time is exclusive of procedures, and includes, but is not limited to, evaluation of the patient, review of the medical record, discussions with family, consultants, nursing staff, or respiratory therapy, and documentation in the medical record. Code Status Full Discussed Condition With ED RN at bedside Ofe Spencer MD Sep 05, 2016 17:26
[2016-09-05 17:30] LABS: BLOOD GAS CARBOXYHEMOGLOBIN 5.1 % (0-4); BLOOD GAS HCO3 27 mmol/L (22-26); BLOOD GAS METHEMOGLOBIN 1.6 % (0-2); BLOOD GAS O2 HGB SATURATION 91 % (90-100); BLOOD GAS OXYGEN CONTENT 14.2 Vol % (12.0-20.0); BLOOD GAS PCO2 49 mmHg (38-42); BLOOD GAS PO2 73 mmHG (61-120); CRITICAL VALUE YES; FIO2 40 %; OXYGEN DEVICE VENTILATOR; TEMP CORR TO 98.6; VENT SETTINGS PRVC/AC
[2016-09-05 17:31] LABS: DRAW SITE RT RADIAL; NUMBER OF ARTERIAL PUNCTURES 1; STAT YES; ULNAR PULSE PRESENT
--- NOTE | 2016-09-05 17:37 | RADRPT ---
EXAM DATE/TIME: 09/05/2016 16:44 [facility] COMPARISON: No previous studies available for comparison. INDICATIONS : Post procedure. MEDICAL HISTORY : None. SURGICAL HISTORY : None. ENCOUNTER: Initial ACUITY: 1 day PAIN SCORE: Non-responsive. LOCATION: Chest FINDINGS: Single view of the chest demonstrates the ET tube is at the level of the clavicles. There is consoli dation left lung base. There is no visible pneumothorax. Mild atelectasis right lung base. CONCLUSION: Consolidation left lung base slightly worse than on the previous study. ET tube in g ood position. Neal Mehta MD on September 05, 2016 at 17:28 Board Certified Radiologist. This report was verified electronically.
[2016-09-05] MEDS: SODIUM CHLOR 0.9% 1000 ML INJ 1,000 ML IV SCH (17:55)
[2016-09-05] MEDS ORDERED: VANCOMYCIN INJ 1,250 MG in SODIUM CHLOR 0.9% 250 ML INJ 250 ML IV ONE (19:00)
[2016-09-05] MEDS ORDERED: Vancomycin Consult Pharmacy 1 EA OTHER SCH (19:00)
[2016-09-05] MEDS: RESP: ALBUTEROL 2.5 MG/IPRATROPIUM 0.5 MG NEB (SCH) INH (19:56)
[2016-09-05] MEDS: DOCUSATE SODIUM 100 MG/10 ML UDC G-TUBE SCH (20:10)
[2016-09-05] MEDS: PIPERACIL-TAZO 4.5 GM PREMIX 100 ML IV SCH (20:11)
[2016-09-05] MEDS: ENOXAPARIN SODIUM 40 MG/0.4 ML SYRINGE SQ SCH (20:11)
[2016-09-05 20:49] LABS: CKMB 10.2 NG/ML (0.5-3.6)
[2016-09-05] MEDS: FAMOTIDINE 20 MG/2 ML VIAL IV PUSH SCH (22:20)
[2016-09-05] MEDS: CHLORHEXIDINE 0.12% (ORAL KIT) 15 ML CUP MT SCH (22:27)
[2016-09-05] MEDS: SODIUM CHLORIDE 0.9% FLUSH 5 ML FLUSH IV FLUSH SCH (22:28)
[2016-09-05] MEDS: VANCOMYCIN INJ 1,250 MG in SODIUM CHLOR 0.9% 250 ML INJ 250 ML IV SCH (22:48)
[2016-09-05] MEDS: CHLORHEXIDINE GLUCONATE 2 % 1 PACK (2 CLOTHS) TOP SCH (22:50)
[2016-09-05 22:58] LABS: AMPHETAMINE, URINE NEG (NEG); BARBITURATES, URINE NEG (NEG); COCAINE, URINE NEG (NEG)
[2016-09-05 23:31] LABS: BLOOD GAS BASE EXCESS 0.1 mmol/L (-2-2); BLOOD GAS CARBOXYHEMOGLOBIN 2.3 % (0-4); BLOOD GAS HCO3 26 mmol/L (22-26); BLOOD GAS METHEMOGLOBIN 1.1 % (0-2); BLOOD GAS O2 HGB SATURATION 95 % (90-100); BLOOD GAS OXYGEN CONTENT 13.9 Vol % (12.0-20.0); BLOOD GAS PCO2 53 mmHg (38-42); BLOOD GAS PO2 100 mmHg (61-120); BLOOD GAS TOTAL HGB 10.3 G/DL (12.0-16.0); TEMP CORR TO 98.6
[2016-09-05 23:33] LABS: CRITICAL VALUE YES; OXYGEN DEVICE VENTILATOR
[2016-09-05 23:34] LABS: DRAW SITE RT RADIAL; FIO2 40 %; NUMBER OF ARTERIAL PUNCTURES 1; STAT NO; ULNAR PULSE PRESENT; VENT SETTINGS PRVC/AC
[2016-09-06] VITALS (19 sets, daily range): BP systolic 74–122; BP diastolic 51–93; PULSE 66–92; RESP 7–16; TEMP 98.1–99.7; O2SAT 38–100
[2016-09-06] MEDS: PIPERACIL-TAZO 4.5 GM PREMIX 100 ML IV SCH ×4 (02:00→21:55)
[2016-09-06 03:43] LABS: APTT (PATIENT) 32.9 SEC (24.3-30.1)
[2016-09-06 03:46] LABS: MAGNESIUM 1.9 MG/DL (1.5-2.5)
[2016-09-06] MEDS: SODIUM CHLOR 0.9% 1000 ML INJ 1,000 ML IV SCH ×3 (03:51→18:45)
[2016-09-06] MEDS: RESP: ALBUTEROL 2.5 MG/IPRATROPIUM 0.5 MG NEB (SCH) INH ×4 (04:00→19:30)
[2016-09-06] MEDS: POTASSIUM PHOSPHATE MONOBASIC 500 MG TAB PO PRN ×2 (04:58→08:33)
[2016-09-06] MEDS: PROPOFOL 1000 MG/100 ML INJ 100 ML IV SCH ×4 (05:12→21:56)
[2016-09-06] MEDS: VANCOMYCIN INJ 1,250 MG in SODIUM CHLOR 0.9% 250 ML INJ 250 ML IV SCH ×3 (05:13→22:29)
[2016-09-06] MEDS: FAMOTIDINE 20 MG/2 ML VIAL IV PUSH SCH ×2 (08:24→21:56)
[2016-09-06] MEDS: DOCUSATE SODIUM 100 MG/10 ML UDC G-TUBE SCH ×2 (08:24→21:56)
[2016-09-06] MEDS: SODIUM CHLORIDE 0.9% FLUSH 5 ML FLUSH IV FLUSH SCH ×2 (08:25→21:57)
[2016-09-06] MEDS: CHLORHEXIDINE 0.12% (ORAL KIT) 15 ML CUP MT SCH ×2 (08:34→22:11)
[2016-09-06] MEDS: MAGNESIUM SULFAT 1 GM PREMIX 100 ML x2 bags IV SCH ×2 (08:36→10:00)
[2016-09-06] MEDS: AZITHROMYCIN INJ 500 MG in SODIUM CHLOR 0.9% 250 ML INJ 250 ML IV SCH (13:03)
--- NOTE | 2016-09-06 14:52 | HHI.CCPN ---
Subjective Remarks/Hospital Course This is a 35-year-old male presented to the ED approximately 7 hours ago for evaluation of lethargy. As per history, patient was found in the bathroom of the methadone clinic sleeping. Patient did not receive his daily dose of methadone today. The patient denies using any drugs or alcohol last night. Patient reports that he is just tired as he did not sleep last night at all. Patient denies suicidal or homicidal ideations. The patient denied any shortness of breath or chest pain. Over the last 7 hours while in the ED the patient became progressively more lethargic with subsequent respiratory depression, with a respiratory rate of 4 and required emergent intubation, and sinus tachycardia. U tox screen was performed in the ED, which revealed positive for benzodiazepines. A phone call was received by Dr. Guzman by a concerned friend, that the patient was suicidal and may have ingested a substance, of note the patent's prescribed Seroquel. Imaging studies were performed CT head no acute abnormality . CT chest and abdomen pending. Expanded U tox was obtained results are pending. The patient's only active medication was noted to be Seroquel. Imaging studies revealed infiltrate right midline the patient received left level levofloxacin, azithromycin and 2 L of normal saline in the ED. Critical care medicine is consulted for treatment and management. Subjective: 09/06: Overnight sedation vacation was initiated, patient combative,agitated not following commands. This a.m. sedation vacation instituted, the patient following commands . CPAP trials to be instituted. Chest CT scan showed narrowing airways Objective Vital Signs Date Time Temp Pulse Resp B/P Pulse Ox O2 Delivery O2 Flow Rate FiO2 09/06/16 12:00 70 09/06/16 12:00 98.3 16 107/63 97 09/06/16 11:36 40 09/05/16 19:22 Ventilator 09/05/16 14:21 3 Intake and Output 09/05/16 09/05/16 09/06/16 08:00 16:00 00:00 Output Total 600 ml Balance -600 ml Result Diagram: 09/05/16 0850 09/05/16 0850 Other Results Laboratory Tests Test 09/05/16 09/05/16 17:13 23:18 Blood Gas Puncture Site RT RADIAL RT RADIAL Blood Gas Patient Temperature 98.6 98.6 Blood Gas HCO3 27 mmol/L 26 mmol/L (22-26) (22-26) Blood Gas Base Excess 2.0 mmol/L 0.1 mmol/L (-2-2) (-2-2) Blood Gas Oxygen Saturation 91 % (90-100) 95 % (90-100) Arterial Blood pH 7.36 7.31 (7.380-7.420) (7.380-7.420) Arterial Blood Partial 49 mmHg (38-42) 53 mmHg (38-42) Pressure CO2 Arterial Blood Partial 73 mmHG 100 mmHg Pressure O2 (61-120) (61-120) Arterial Blood Oxygen Content 14.2 Vol % 13.9 Vol % (12.0-20.0) (12.0-20.0) Arterial Blood 5.1 % (0-4) 2.3 % (0-4) Carboxyhemoglobin Arterial Blood Methemoglobin 1.6 % (0-2) 1.1 % (0-2) Blood Gas Hemoglobin 11.0 G/DL 10.3 G/DL (12.0-16.0) (12.0-16.0) Oxygen Delivery Device VENTILATOR VENTILATOR Blood Gas Ventilator Setting PRVC/AC PRVC/AC Blood Gas Inspired Oxygen 40 % 40 % Imaging Last Impressions CT Angiography 09/05/16 1436 Signed Impressions: Service Date/Time: September 16:08 - CONCLUSION: Significant infiltrate with near complete opacification of the left lower lobe. Both the left upper lobe and left lower lobe bronchi are markedly narrowed. Bronchoscopy is recommended to evaluate the left bronchi. Airspace of the right upper lobe possible pneumonia. No evidence of pulmonary emboli. Neal Mehta MD Head CT 09/05/16 0000 Signed Impressions: Service Date/Time: September 11:10 - CONCLUSION: No acute intracranial disease. Kike Serrano MD Chest X-Ray 09/05/16 0000 Signed Impressions: Service Date/Time: September 10:35 - CONCLUSION: Questionable infiltrates right mid lung zone and left lung base. Neal Mehta MD Abdomen/Pelvis CT 09/05/16 0000 Signed Impressions: Service Date/Time: September 16:08 - CONCLUSION: Normal examination of the abdomen or pelvis. Dense infiltrate left lower lobe. Erosive changes both SI joints. Neal Mehta MD Objective Remarks GENERAL: Critically ill-appearing male, intubated currently on fall sedated SKIN: Warm and dry. HEAD: Atraumatic. Normocephalic. EYES: Pupils equal and round. 2 mm. No scleral icterus. No injection or drainage. ENT: No nasal bleeding or discharge. Mucous membranes pink and moist. NECK: Trachea midline. No JVD. CARDIOVASCULAR: Normal rate, regular rhythm. RESPIRATORY: Mechanical ventilation. Clear to auscultation bilateral lobes R.L. Breath sounds equal bilaterally. GASTROINTESTINAL: Abdomen soft, non-tender, nondistended. No guarding. MUSCULOSKELETAL: Extremities without clubbing, cyanosis, or edema. No obvious deformities. NEUROLOGICAL: GCS 14T. Off sedation, moves extremities 4. A/P Assessment and Plan Plan by systems: Neurologic: Toxic Encephalopathy Suicidal ideations per report Patient's prescription medications include Seroquel, symptomatology suspicious for overdose Contacted poison control ([facility])-understanding treatment is supportive Propofol infusion for sedation Sedation vacation daily Order random cortisol level Follow-up urine toxicity screen Psychiatry consult when clinically indicated Respiratory: Acute hypoxemic respiratory failure Multilobular Pneumonia CXR 3/2-questionable infiltrate right mid lung, possible pneumonia CT chest 3/2-complete left lower lobe opacification, good bowel left upper lobe , left lower lobe bronchi narrowed right upper lobe possible pneumonia Plan consult to pulmonology Dr. Rose- to perform bronchoscopy for evaluation of left bronchus and BAL obtain specimens to send for culture Begin empiric antibiotic- Vanc, Zosyn and Azithromycin Bronchodilators every 6 hours scheduled, and every 2 hours when necessary Maintain head of bed 30 Begin CPAP Cardiovascular: Sinus tachycardia Volume resuscitation, the patient received 2 L normal saline in ED Serial EKGs-possible Seroquel toxicity monitor QTc prolongation, - 399->408->452 , no ectopy Maintain map greater than 65mmHg, currently normotensive Renal: Insert Yanes -- Strict I/Os FEN/GI: Replete electrolytes per ICU protocol Obtain magnesium and phosphorus level Monitor BMP OGT-begin tube feeds Bowel regimen Zofran for nausea Pepcid GI prophylaxis Heme/ID: Community-acquired pneumonia Mild leukocytosis Obtain blood and urine cultures UTI Pulmonary From bronchoscopy obtain BAL sent for culture WBC count 11.2, continue to monitor CBC Endocrine: Glucose monitoring per ICU protocol, low-dose regimen -- SSI Prophylaxis: GI Prophylaxis Pepcid DVT Prophylaxis -- SCDs Lovenox 40 mg /day Lines: Peripheral IVs 2. Central line if indicated. Dispo: This patient remains critically ill with one or more organ systems which are or may become a threat to life. I have spent in excess of 37 minutes discontinuously in the care and management of this patient. This time is exclusive of procedures, and includes, but is not limited to, evaluation of the patient, review of the medical record, discussions with family, consultants, nursing staff, or respiratory therapy, and documentation in the medical record. Physician Ofe Herron MD Sep 06, 2016 14:51
[2016-09-06 16:04] LABS: HEMATOCRIT 30.1 % (39.0-51.0); MEAN CELL VOLUME 85.9 FL (80.0-100.0); MEAN CORPUSCULAR HEMOGLOBIN 28.9 PG (27.0-34.0); MEAN CORPUSCULAR HGB CONC 33.6 % (32.0-36.0); PLATELET COUNT 187 TH/MM3 (150-450); RED BLOOD COUNT 3.51 MIL/MM3 (4.50-5.90); RED CELL DISTRIBUTION WIDTH 15.8 % (11.6-17.2); REVIEW FLAG FINAL; WHITE BLOOD COUNT 6.8 TH/MM3 (4.0-11.0)
--- NOTE | 2016-09-06 16:18 | RADRPT ---
EXAM DATE/TIME: 09/06/2016 15:36 [facility] COMPARISON: CHEST SINGLE AP, September 05, 2016, 16:44. INDICATIONS : Respiratory Failure. MEDICAL HISTORY : Substance abuse. SURGICAL HISTORY : Unobtainable. ENCOUNTER: Subsequent ACUITY: 3 days PAIN SCORE: Non-responsive. LOCATION: Chest FINDINGS: ET tube and nasogastric tube are in good position. Consolidative changes are present in the left bas e with air bronchograms. Linear parenchymal opacity is seen in the right lung. CONCLUSION: 1. Increasing consolidation changes in the left base. 2. Support apparatus in good position. Alexey Xie MD FACR on September 06, 2016 at 16:06 Board Certified Radiologist. This report was verified electronically.
[2016-09-06 16:27] LABS: BICARBONATE 28.4 MEQ/L (21.0-32.0); MAGNESIUM 2.3 MG/DL (1.5-2.5); POTASSIUM 3.4 MEQ/L (3.5-5.1)
--- NOTE | 2016-09-06 21:32 | MB ---
cc: VANDANA ROSS DATE OF CONSULTATION 09/06/16 REASON FOR CONSULTATION Pneumonia, bronchial narrowing HISTORY OF PRESENT ILLNESS Mr. Tee is a 35-year-old male who is admitted with probable drug overdose with respiratory failure, presently on ventilatory support. CT scan of the chest was undertaken with evidence of left upper lobe, left lower lobe bronchi with marked narrowing, the significance of which is unclear. I am asked to see the patient at this time for same. The patient as well has pneumonia in the right upper lung. PAST MEDICAL HISTORY 1. Bipolar disorder. 2. History of opiate addiction on methadone ALLERGIES None known to medication MEDICATIONS At home 1. Seroquel. 2. Methadone SOCIAL HISTORY Does not drink. Smokes a pack of cigarettes a day. Uses methadone as mentioned above. FAMILY HISTORY Noncontributory. REVIEW OF SYSTEMS 12-point review of systems as per HPI and past history otherwise negative PHYSICAL EXAMINATION GENERAL: Patient is sedated on ventilatory support. VITAL SIGNS: Temperature 98, pulse 90, respirations 18, blood pressure 107/60, oxygen saturation 97%, inspired oxygen fraction of 40%. HEENT: Exam unremarkable. Eyes without icterus. NECK: Without adenopathy or thyroid enlargement. Central trachea. CHEST: Few scattered rhonchi bilaterally. CARDIAC: PMI distant. S1, S2 audible. No murmur or rub. ABDOMEN: Lax, bowel sounds audible. EXTREMITIES: No clubbing, cyanosis or edema. LABORATORY DATA White count 6.8, hemoglobin 10, hematocrit 30. LABORATORY DATA White count 6.8, hemoglobin 10, hematocrit 30, platelets 187,000, Sodium 142, potassium 3.4, BUN seven, creatinine 0.6, IMAGING STUDIES CT scan of the chest as discussed above. IMPRESSION 1. Respiratory failure 2. Probable drug overdose 3. Pneumonia 4. Bronchial narrowing, significance unclear. PLAN The patient is presently on ventilatory support. The weaning process will be initiated as tolerated. His pneumonia is being treated and antibiotic therapy has been instituted. 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 However, bronchoscopic examination is needed to verify findings. This will be done at some point during the patient's hospitalization. Chest x-ray and arterial blood gas will be followed. I do thank you for asking me to partake in Mr. José's care. MD MILE Young/ /5:25 PM /9:12 PM
[2016-09-06] MEDS ORDERED: PHARMACY ORDERED LAB XX ONE (21:45)
[2016-09-06] MEDS: ENOXAPARIN SODIUM 40 MG/0.4 ML SYRINGE SQ SCH (21:56)
--- NOTE | 2016-09-06 22:53 | EKG ---
Date Performed: 09/06/2016 Time Performed: 08:11:29 PTAGE: 35 years EKG: Sinus rhythm NONSPECIFIC ST ELEVATION BORDERLINE ECG PREVIOUS TRACING : 09/05/2016 21.58 DOCTOR: Shaji Marcial Interpretating Date/Time 09/06/2016 22:51:32
--- NOTE | 2016-09-06 23:15 | EKG ---
Date Performed: 09/05/2016 Time Performed: 21:58:54 PTAGE: 35 years EKG: Sinus rhythm MODERATE T-WAVE ABNORMALITY, CONSIDER ANTERIOR ISCHEMIA ABNORMAL ECG PREVIOUS TRACING : 09/05/2016 17.39 DOCTOR: Shaji Marcial Interpretating Date/Time 09/06/2016 23:13:01
--- NOTE | 2016-09-06 23:26 | EKG ---
Date Performed: 09/05/2016 Time Performed: 17:39:22 PTAGE: 35 years EKG: Sinus rhythm NONSPECIFIC ST ELEVATION BORDERLINE ECG PREVIOUS TRACING : 09/05/2016 09.09 DOCTOR: Shaji Marcial Interpretating Date/Time 09/06/2016 23:24:37
--- NOTE | 2016-09-06 23:44 | EKG ---
Date Performed: 09/05/2016 Time Performed: 09:09:59 PTAGE: 35 years EKG: SINUS TACHYCARDIA NONSPECIFIC T-WAVE ABNORMALITY ABNORMAL RHYTHM ECG PREVIOUS TRACING : 09/04/2016 14.13 DOCTOR: Shaji Marcial Interpretating Date/Time 09/06/2016 23:42:08
[2016-09-07] VITALS (18 sets, daily range): BP systolic 13–152; BP diastolic 55–87; PULSE 56–95; RESP 10–16; TEMP 98.4–99; O2SAT 97–100
[2016-09-07] MEDS: RESP: ALBUTEROL 2.5 MG/IPRATROPIUM 0.5 MG NEB (SCH) INH ×4 (03:28→19:56)
[2016-09-07] MEDS: CHLORHEXIDINE GLUCONATE 2 % 1 PACK (2 CLOTHS) TOP SCH (04:00)
[2016-09-07] MEDS: PROPOFOL 1000 MG/100 ML INJ 100 ML IV SCH ×2 (05:52→09:38)
[2016-09-07] MEDS: PIPERACIL-TAZO 4.5 GM PREMIX 100 ML IV SCH ×4 (05:53→20:03)
[2016-09-07] MEDS: SODIUM CHLOR 0.9% 1000 ML INJ 1,000 ML IV SCH ×2 (05:54→09:00)
[2016-09-07 06:14] LABS: HEMATOCRIT 27.8 % (39.0-51.0); MEAN CELL VOLUME 84.9 FL (80.0-100.0); MEAN CORPUSCULAR HEMOGLOBIN 29.3 PG (27.0-34.0); MEAN CORPUSCULAR HGB CONC 34.5 % (32.0-36.0); PLATELET COUNT 198 TH/MM3 (150-450); RED BLOOD COUNT 3.28 MIL/MM3 (4.50-5.90); RED CELL DISTRIBUTION WIDTH 15.6 % (11.6-17.2); REVIEW FLAG FINAL; WHITE BLOOD COUNT 6.3 TH/MM3 (4.0-11.0)
[2016-09-07 06:35] LABS: BICARBONATE 27.2 MEQ/L (21.0-32.0); INDIRECT BILIRUBIN 0.1 MG/DL (0.0-0.8); MAGNESIUM 2.4 MG/DL (1.5-2.5); POTASSIUM 3.3 MEQ/L (3.5-5.1); TOTAL BILIRUBIN ADULT 0.3 MG/DL (0.2-1.0)
--- NOTE | 2016-09-07 07:00 | RADRPT ---
EXAM DATE/TIME: 09/07/2016 02:51 [facility] COMPARISON: CHEST SINGLE AP, September 06, 2016, 15:36. INDICATIONS : Shortness of breath, possible pulmonary disease. MEDICAL HISTORY : None. SURGICAL HISTORY : None. ENCOUNTER: Subsequent ACUITY: 4 - 6 days PAIN SCORE: Non-responsive. LOCATION: Bilateral chest FINDINGS: Endotracheal tube and nasogastric tube are stable and satisfactory position. Bibasilar infiltrates ar e grossly unchanged. Cardiac contours are stable. CONCLUSION: No significant change Terrance Wood MD on September 07, 2016 at 6:58 Board Certified Radiologist. This report was verified electronically.
[2016-09-07] MEDS: SODIUM CHLORIDE 0.9% FLUSH 5 ML FLUSH IV FLUSH SCH ×2 (09:00→20:04)
[2016-09-07] MEDS: DOCUSATE SODIUM 100 MG/10 ML UDC G-TUBE SCH ×2 (09:38→20:04)
[2016-09-07] MEDS: CHLORHEXIDINE 0.12% (ORAL KIT) 15 ML CUP MT SCH ×2 (09:38→20:05)
[2016-09-07] MEDS: FAMOTIDINE 20 MG/2 ML VIAL IV PUSH SCH ×2 (09:39→20:04)
[2016-09-07] MEDS ORDERED: ACETAMINOPHEN/HYDROcodone 325 MG/10 MG TAB PO SCH (11:00)
[2016-09-07] MEDS ORDERED: METHADONE HCL 10 MG/10 ML ORAL SOLUTION PO SCH (11:00)
--- NOTE | 2016-09-07 11:15 | HHI.CCPN ---
Subjective Remarks/Hospital Course This is a 35-year-old male presented to the ED approximately 7 hours ago for evaluation of lethargy. As per history, patient was found in the bathroom of the methadone clinic sleeping. Patient did not receive his daily dose of methadone today. The patient denies using any drugs or alcohol last night. Patient reports that he is just tired as he did not sleep last night at all. Patient denies suicidal or homicidal ideations. The patient denied any shortness of breath or chest pain. Over the last 7 hours while in the ED the patient became progressively more lethargic with subsequent respiratory depression, with a respiratory rate of 4 and required emergent intubation, and sinus tachycardia. U tox screen was performed in the ED, which revealed positive for benzodiazepines. A phone call was received by Dr. Guzman by a concerned friend, that the patient was suicidal and may have ingested a substance, of note the patent's prescribed Seroquel. Imaging studies were performed CT head no acute abnormality . CT chest and abdomen pending. Expanded U tox was obtained results are pending. The patient's only active medication was noted to be Seroquel. Imaging studies revealed infiltrate right midline the patient received left level levofloxacin, azithromycin and 2 L of normal saline in the ED. Critical care medicine is consulted for treatment and management. Subjective: 3/: Overnight sedation vacation was initiated, patient combative,agitated not following commands. This a.m. sedation vacation instituted, the patient following commands . CPAP trials to be instituted. Chest CT scan showed narrowing airways. 3/4 Afebrile. A sedation vacation the patient is alert and oriented GCS [address] Prasad into see patient, plans for bronchoscopy for bronchial airway narrowing. Chest x-ray unchanged. Methadone was resumed 4-5 mg daily. Will obtain EKG to monitor QTc and reinitiate Seroquel at a lower dose. Objective Vital Signs Date Time Temp Pulse Resp B/P Pulse Ox O2 Delivery O2 Flow Rate FiO2 09/07/16 10:44 40 09/07/16 10:00 90 09/07/16 08:00 99.0 11 13/79 100 09/05/16 19:22 Ventilator 09/05/16 14:21 3 Intake and Output 09/06/16 09/06/16 09/07/16 08:00 16:00 00:00 Intake Total 1836 ml 2559 ml Output Total 450 ml 1350 ml Balance 1386 ml 1209 ml Result Diagram: 09/07/16 0502 09/07/16 [address] Angiography 09/05/16 1436 Signed Impressions: Service Date/Time: September 16:08 - CONCLUSION: Significant infiltrate with near complete opacification of the left lower lobe. Both the left upper lobe and left lower lobe bronchi are markedly narrowed. Bronchoscopy is recommended to evaluate the left bronchi. Airspace of the right upper lobe possible pneumonia. No evidence of pulmonary emboli. Neal Metha MD Head CT 09/05/16 0000 Signed Impressions: Service Date/Time: September 11:10 - CONCLUSION: No acute intracranial disease. Kike Serrano MD Chest X-Ray 09/05/16 0000 Signed Impressions: Service Date/Time: September 10:35 - CONCLUSION: Questionable infiltrates right mid lung zone and left lung base. Neal Mehta MD Abdomen/Pelvis CT 09/05/16 0000 Signed Impressions: Service Date/Time: September 16:08 - CONCLUSION: Normal examination of the abdomen or pelvis. Dense infiltrate left lower lobe. Erosive changes both SI joints. Neal Mehta MD Objective Remarks GENERAL: Critically ill-appearing male, intubated but following commands SKIN: Warm and dry. HEAD: Atraumatic. Normocephalic. EYES: Pupils equal and round. 2 mm. No scleral icterus. No injection or drainage. ENT: No nasal bleeding or discharge. Mucous membranes pink and moist. NECK: Trachea midline. No JVD. CARDIOVASCULAR: Normal rate, regular rhythm. RESPIRATORY: Mechanical ventilation. Clear to auscultation bilateral lobes R.L. Breath sounds equal bilaterally. GASTROINTESTINAL: Abdomen soft, non-tender, nondistended. No guarding. MUSCULOSKELETAL: Extremities without clubbing, cyanosis, or edema. No obvious deformities. NEUROLOGICAL: GCS 14T. Off sedation, moves extremities 4. Complaining of pain A/P Assessment and Plan Plan by systems: Neurologic: Toxic Encephalopathy Suicidal ideations Chronic Pain Patient's prescription medications include Seroquel, symptomatology suspicious for overdose Propofol infusion for sedation Sedation vacation daily Follow-up urine toxicity screen Patient previously on methadone 45 mg daily complaining of pain methadone reinitiated Psychiatry consult when clinically indicated Respiratory: Acute hypoxemic respiratory failure Multilobular Pneumonia CXR 3/2-questionable infiltrate right mid lung, possible pneumonia CT chest 3/2-complete left lower lobe opacification, right upper lobe possible pneumonia Pulmonology to perform bronchoscopy 2/2 Left bronchi narrowing and BAL to obtain specimens to send for culture Empiric Zosyn and Azithromycin Bronchodilators every 6 hours scheduled, and every 2 hours when necessary Maintain head of bed 30 SBT trials daily Cardiovascular: Sinus tachycardia Volume resuscitation, the patient received 2 L normal saline in ED Serial EKGs-possible Seroquel toxicity monitor QTc prolongation, at 0900am- 399 Maintain MAP greater than 65mmHg, currently normotensive Renal: Insert Yanes -- Strict I/Os FEN/GI: Replete electrolytes per ICU protocol Obtain magnesium and phosphorus level Monitor BMP Maintain nothing by mouth status Insert OGT Bowel regimen Zofran for nausea Pepcid GI prophylaxis Heme/ID: Community-acquired pneumonia Mild leukocytosis-resolved Obtain blood and urine cultures UTI From bronchoscopy obtain BAL sent for culture Continue to monitor CBC Empiric antibiotics Vanc , Zosyn and Azithromycin (day 3) Endocrine: Glucose monitoring per ICU protocol, low-dose regimen -- SSI Prophylaxis: GI Prophylaxis Pepcid DVT Prophylaxis -- SCDs Lovenox 40 mg /day Lines: Peripheral IVs 2. Central line if indicated. Dispo: Level 3 Physician Ofe Herron MD Sep 07, 2016 11:15
[2016-09-07] MEDS: AZITHROMYCIN INJ 500 MG in SODIUM CHLOR 0.9% 250 ML INJ 250 ML IV SCH (11:45)
[2016-09-07] MEDS: VANCOMYCIN 1,000 MG/NS 250 ML IV SCH ×4 (12:58→20:05)
[2016-09-07] MEDS ORDERED: PROPOFOL 1000 MG/100 ML IV SCH (13:00)
[2016-09-07] MEDS ORDERED: PROPOFOL 1000 MG/100 ML INJ 100 ML IV SCH (13:45)
[2016-09-07] MEDS: DEXMEDETOMIDINE 200 MCG/50 ML NS IV SCH ×3 (14:22→21:38)
[2016-09-07 16:10] LABS: BLOOD GAS BASE EXCESS 0.5 mmol/L (-2-2); BLOOD GAS CARBOXYHEMOGLOBIN 1.4 % (0-4); BLOOD GAS HCO3 25 mmol/L (22-26); BLOOD GAS METHEMOGLOBIN 0.9 % (0-2); BLOOD GAS O2 HGB SATURATION 97 % (90-100); BLOOD GAS OXYGEN CONTENT 13.8 Vol % (12.0-20.0); BLOOD GAS PCO2 44 mmHg (38-42); BLOOD GAS PO2 154 mmHg (61-120); BLOOD GAS TOTAL HGB 9.9 G/DL (12.0-16.0); CRITICAL VALUE NO; OXYGEN DEVICE C; TEMP CORR TO 98.6; VENT SETTINGS CPAP+5/PS+8
[2016-09-07 16:11] LABS: DRAW SITE RT RADIAL; FIO2 40 %; NUMBER OF ARTERIAL PUNCTURES 1; STAT NO; ULNAR PULSE PRESENT
[2016-09-07] MEDS: ENOXAPARIN SODIUM 40 MG/0.4 ML SYRINGE SQ SCH (20:04)
[2016-09-08] VITALS (16 sets, daily range): BP systolic 133–159; BP diastolic 7–99; PULSE 54–98; RESP 12–18; TEMP 98.4–98.9; O2SAT 92–99
[2016-09-08] MEDS: SODIUM CHLOR 0.9% 1000 ML INJ 1,000 ML IV SCH (02:54)
[2016-09-08] MEDS: PIPERACIL-TAZO 4.5 GM PREMIX 100 ML IV SCH ×4 (02:54→19:38)
[2016-09-08] MEDS: DEXMEDETOMIDINE 200 MCG/50 ML NS IV SCH ×2 (03:14→08:45)
[2016-09-08] MEDS: RESP: ALBUTEROL 2.5 MG/IPRATROPIUM 0.5 MG NEB (SCH) INH ×4 (03:34→20:27)
[2016-09-08] MEDS: CHLORHEXIDINE GLUCONATE 2 % 1 PACK (2 CLOTHS) TOP SCH (04:20)
[2016-09-08] MEDS: VANCOMYCIN 1,000 MG/NS 250 ML IV SCH ×4 (04:20→12:10)
--- NOTE | 2016-09-08 06:47 | RADRPT ---
EXAM DATE/TIME: 09/08/2016 06:02 [facility] COMPARISON: CHEST SINGLE AP, September 07, 2016, 2:51. INDICATIONS : Shortness of breath, possible pulmonary disease. MEDICAL HISTORY : None. SURGICAL HISTORY : None. ENCOUNTER: Subsequent ACUITY: 1 week PAIN SCORE: Non-responsive. LOCATION: Bilateral chest FINDINGS: Endotracheal tube and nasogastric tube are stable. The nasogastric tube sidehole is in the distal eso phagus and slight advancement may be beneficial. Persistent consolidation and small effusion at the l eft base and mild right base infiltrate. No significant change. Cardiac contours are stable. CONCLUSION: Stable chest appearance Terrance Wood MD on September 08, 2016 at 6:45 Board Certified Radiologist. This report was verified electronically.
[2016-09-08] MEDS: CHLORHEXIDINE 0.12% (ORAL KIT) 15 ML CUP MT SCH ×2 (08:00→19:37)
[2016-09-08] MEDS: SODIUM CHLORIDE 0.9% FLUSH 5 ML FLUSH IV FLUSH PRN (08:46)
[2016-09-08] MEDS: DOCUSATE SODIUM 100 MG/10 ML UDC G-TUBE SCH ×2 (08:46→19:38)
[2016-09-08] MEDS: FAMOTIDINE 20 MG/2 ML VIAL IV PUSH SCH ×2 (08:46→19:37)
[2016-09-08] MEDS: SODIUM CHLORIDE 0.9% FLUSH 5 ML FLUSH IV FLUSH SCH ×2 (08:46→19:37)
[2016-09-08 10:07] LABS: HEMATOCRIT 32.6 % (39.0-51.0); MEAN CELL VOLUME 85.3 FL (80.0-100.0); MEAN CORPUSCULAR HEMOGLOBIN 28.8 PG (27.0-34.0); MEAN CORPUSCULAR HGB CONC 33.7 % (32.0-36.0); PLATELET COUNT 217 TH/MM3 (150-450); RED BLOOD COUNT 3.83 MIL/MM3 (4.50-5.90); RED CELL DISTRIBUTION WIDTH 15.8 % (11.6-17.2); REVIEW FLAG FINAL; WHITE BLOOD COUNT 6.9 TH/MM3 (4.0-11.0)
[2016-09-08] MEDS: METHADONE HCL 10 MG/10 ML ORAL SOLUTION PO SCH (10:13)
[2016-09-08 10:24] LABS: BICARBONATE 28.2 MEQ/L (21.0-32.0); MAGNESIUM 2.4 MG/DL (1.5-2.5); POTASSIUM 3.5 MEQ/L (3.5-5.1)
[2016-09-08] MEDS ORDERED: ACETAMINOPHEN 1000 MG/100 ML VIAL IV PRN (11:45)
[2016-09-08] MEDS ORDERED: LORazepam 2 MG/ML VIAL IVP PRN (11:45)
[2016-09-08] MEDS: AZITHROMYCIN INJ 500 MG in SODIUM CHLOR 0.9% 250 ML INJ 250 ML IV SCH (12:10)
[2016-09-08] MEDS ORDERED: PHARMACY ORDERED LAB XX ONE (12:45)
--- NOTE | 2016-09-08 14:28 | EKG ---
Date Performed: 09/07/2016 Time Performed: 14:21:27 PTAGE: 35 years EKG: SINUS BRADYCARDIA BORDERLINE ECG Compared to prior tracing no significant change PREVIOUS TRACING : 09/06/2016 08.11 DOCTOR: Aric Baez Interpretating Date/Time 09/08/2016 14:26:37
[2016-09-08] MEDS: ENOXAPARIN SODIUM 40 MG/0.4 ML SYRINGE SQ SCH (19:37)
--- NOTE | 2016-09-08 19:55 | HHI.CCPN ---
Subjective Remarks/Hospital Course This is a 35-year-old male presented to the ED approximately 7 hours ago for evaluation of lethargy. As per history, patient was found in the bathroom of the methadone clinic sleeping. Patient did not receive his daily dose of methadone today. The patient denies using any drugs or alcohol last night. Patient reports that he is just tired as he did not sleep last night at all. Patient denies suicidal or homicidal ideations. The patient denied any shortness of breath or chest pain. Over the last 7 hours while in the ED the patient became progressively more lethargic with subsequent respiratory depression, with a respiratory rate of 4 and required emergent intubation, and sinus tachycardia. U tox screen was performed in the ED, which revealed positive for benzodiazepines. A phone call was received by Dr. Guzman by a concerned friend, that the patient was suicidal and may have ingested a substance, of note the patent's prescribed Seroquel. Imaging studies were performed CT head no acute abnormality . CT chest and abdomen pending. Expanded U tox was obtained results are pending. The patient's only active medication was noted to be Seroquel. Imaging studies revealed infiltrate right midline the patient received left level levofloxacin, azithromycin and 2 L of normal saline in the ED. Critical care medicine is consulted for treatment and management. Subjective: 3/3: Overnight sedation vacation was initiated, patient combative,agitated not following commands. This a.m. sedation vacation instituted, the patient following commands . CPAP trials to be instituted. Chest CT scan showed narrowing airways. 3/4 Afebrile. A sedation vacation the patient is alert and oriented GCS [address] Prasad into see patient, plans for bronchoscopy for bronchial airway narrowing. Chest x-ray unchanged. Methadone was resumed 4-5 mg daily. Will obtain EKG to monitor QTc and reinitiate Seroquel at a lower dose. 3/5 The patient passed CPAP trials today. The patient was successfully extubated. The patient's methadone was decreased to 20 mg daily, secondary to extreme lethargy with initial dosing of 45 mg yesterday. Per report from family the patient has attempted suicide 4 in the past month. The patient requires restraint to prevent harm at this time. Psychiatry has been consulted. Objective Vital Signs Date Time Temp Pulse Resp B/P Pulse Ox O2 Delivery O2 Flow Rate FiO2 09/08/16 18:00 85 09/08/16 16:00 98.6 15 159/7 98 09/08/16 09:04 Nasal Cannula 2 09/08/16 08:01 35 Intake and Output 09/07/16 09/07/16 09/08/16 08:00 16:00 00:00 Intake Total 1405 ml 1149 ml 1303 ml Output Total 550 ml 1875 ml 950 ml Balance 855 ml -726 ml 353 ml Result Diagram: 09/08/16 0920 09/08/16 0920 Other Results Microbiology Date/Time Procedure Status Source Growth 09/05/16 23:10 Gram Stain - Final Complete Sputum Endotracheal 09/05/16 23:10 Sputum Culture - Final Complete Sputum Endotracheal HEAVY GROWTH NORMAL RESPIRATORY JAKE Imaging Last Impressions CT Angiography 09/05/16 1436 Signed Impressions: Service Date/Time: September 16:08 - CONCLUSION: Significant infiltrate with near complete opacification of the left lower lobe. Both the left upper lobe and left lower lobe bronchi are markedly narrowed. Bronchoscopy is recommended to evaluate the left bronchi. Airspace of the right upper lobe possible pneumonia. No evidence of pulmonary emboli. Neal Mehta MD Head CT 09/05/16 0000 Signed Impressions: Service Date/Time: September 11:10 - CONCLUSION: No acute intracranial disease. Kike Serrano MD Chest X-Ray 09/05/16 0000 Signed Impressions: Service Date/Time: September 10:35 - CONCLUSION: Questionable infiltrates right mid lung zone and left lung base. Neal Mehta MD Abdomen/Pelvis CT 09/05/16 0000 Signed Impressions: Service Date/Time: September 16:08 - CONCLUSION: Normal examination of the abdomen or pelvis. Dense infiltrate left lower lobe. Erosive changes both SI joints. Neal Mehta MD Objective Remarks GENERAL: Well-developed well-nourished male, sitting in chair crying SKIN: Warm and dry. HEAD: Atraumatic. Normocephalic. EYES: Pupils equal and round. 2 mm. No scleral icterus. No injection or drainage. ENT: No nasal bleeding or discharge. Mucous membranes pink and moist. NECK: Trachea midline. No JVD. CARDIOVASCULAR: Normal rate, regular rhythm. RESPIRATORY: Room air O2 sat 99% Clear to auscultation bilateral lobes R.L. Breath sounds equal bilaterally. GASTROINTESTINAL: Abdomen soft, non-tender, nondistended. No guarding. MUSCULOSKELETAL: Extremities without clubbing, cyanosis, or edema. No obvious deformities. NEUROLOGICAL: GCS 15. Depressed and crying incessantly Urinary Catheter: Yes Vascular Central Line Catheter: No A/P Assessment and Plan Plan by systems: Neurologic: Toxic Encephalopathy Suicidal ideations Multiple suicide attempts Chronic Pain Patient's prescription medications include Seroquel, symptomatology suspicious for overdose-confirmed by patient and family postextubation Sedation vacation daily Follow-up urine toxicity screen Patient previously on methadone 45 mg daily complaining of pain methadone reinitiated a decreased dose 20 mg daily Psychiatry consult initiated Respiratory: Acute hypoxemic respiratory failure Multilobular Pneumonia CXR 3/2-questionable infiltrate right mid lung, possible pneumonia CT chest 3/2-complete left lower lobe opacification, right upper lobe possible pneumonia Pulmonology to perform bronchoscopy 2/2 Left bronchi narrowing and BAL to obtain specimens to send for culture Empiric Zosyn and Azithromycin Bronchodilators every 6 hours scheduled, and every 2 hours when necessary Maintain head of bed 30 Cardiovascular: Sinus tachycardia Volume resuscitation, the patient received 2 L normal saline in ED Serial EKGs-possible Seroquel toxicity monitor QTc prolongation, at 0900am- 399 Maintain MAP greater than 65mmHg, currently normotensive Renal: Insert Yanes -- Strict I/Os FEN/GI: Replete electrolytes per ICU protocol Obtain magnesium and phosphorus level Monitor BMP Maintain nothing by mouth status Insert OGT Bowel regimen Zofran for nausea Pepcid GI prophylaxis Heme/ID: Community-acquired pneumonia Mild leukocytosis-resolved Obtain blood and urine cultures UTI From bronchoscopy obtain BAL sent for culture Continue to monitor CBC Empiric antibiotics Vanc , Zosyn and Azithromycin (day 4) D/C Yanes Endocrine: Glucose monitoring per ICU protocol, low-dose regimen -- SSI Prophylaxis: GI Prophylaxis Pepcid DVT Prophylaxis -- SCDs Lovenox 40 mg /day Lines: Peripheral IVs 2. Central line if indicated. Dispo: The patient is extubated, tolerating diet, O2 sat within normal limits on room air. Plan for bronchoscopy per pulmonology. Patient will be transferred to hospitalist. Level 2 Physician Ofe Herron MD Sep 08, 2016 19:55
[2016-09-09] VITALS (17 sets, daily range): BP systolic 144–165; BP diastolic 68–102; PULSE 66–100; RESP 16–20; TEMP 98–98.6; O2SAT 93–99
[2016-09-09] MEDS: VANCOMYCIN INJ 1,250 MG in SODIUM CHLOR 0.9% 250 ML INJ 250 ML IV SCH ×3 (01:08→23:55)
[2016-09-09] MEDS: PIPERACIL-TAZO 4.5 GM PREMIX 100 ML IV SCH ×4 (02:15→19:34)
[2016-09-09] MEDS: CHLORHEXIDINE GLUCONATE 2 % 1 PACK (2 CLOTHS) TOP SCH (06:10)
[2016-09-09] MEDS: CHLORHEXIDINE 0.12% (ORAL KIT) 15 ML CUP MT SCH ×2 (08:00→19:35)
[2016-09-09] MEDS: DOCUSATE SODIUM 100 MG/10 ML UDC G-TUBE SCH ×2 (08:00→19:35)
[2016-09-09] MEDS: RESP: ALBUTEROL 2.5 MG/IPRATROPIUM 0.5 MG NEB (SCH) INH ×3 (08:01→19:10)
[2016-09-09] MEDS: FAMOTIDINE 20 MG/2 ML VIAL IV PUSH SCH ×2 (08:47→19:34)
[2016-09-09] MEDS: SODIUM CHLORIDE 0.9% FLUSH 5 ML FLUSH IV FLUSH SCH ×2 (08:47→19:36)
[2016-09-09] MEDS: METHADONE HCL 10 MG/10 ML ORAL SOLUTION PO SCH (08:48)
--- NOTE | 2016-09-09 08:58 | HHI.PR ---
Subjective Remarks in no acute distress. no sob or cough. no fever. denies suicidal thoughts. d/w the RN. Objective Vitals Vital Signs Date Time Temp Pulse Resp B/P Pulse Ox O2 Delivery O2 Flow Rate FiO2 09/09/16 08:04 97 09/09/16 06:00 69 09/09/16 04:00 98.6 100 16 163/93 96 09/09/16 04:00 100 09/09/16 02:00 76 09/09/16 00:00 98.4 74 16 144/81 93 09/09/16 00:00 74 09/08/16 22:00 83 09/08/16 20:26 97 21 09/08/16 20:00 81 09/08/16 20:00 98.7 81 17 153/80 94 09/08/16 18:00 85 09/08/16 16:00 98 09/08/16 16:00 98.6 98 15 159/7 98 09/08/16 14:00 79 09/08/16 12:00 98.4 92 12 144/99 99 09/08/16 12:00 92 09/08/16 10:00 89 09/08/16 09:04 97 Nasal Cannula 2 09/08/16 09:04 97 Nasal Cannula 2.00 I/O 09/08/16 09/08/16 09/08/16 09/09/16 09/09/16 09/09/16 07:00 15:00 23:00 07:00 15:00 23:00 Intake Total 865 ml 2197 ml 1241 ml 880 ml Output Total 550 ml 950 ml 1000 ml 1200 ml Balance 315 ml 1247 ml 241 ml -320 ml Intake Oral 1000 ml 240 ml 240 ml IV Total 540 ml 988 ml 1001 ml 640 ml Tube Feeding 325 ml 209 ml 0 ml Output Urine Total 550 ml 950 ml 1000 ml 1200 ml # Bowel Movements 0 0 1 1 Result Diagram: 09/08/16 0920 09/08/16 0920 Imaging Last Impressions Chest X-Ray 09/08/16 0000 Signed Impressions: Service Date/Time: Thursday, September 08, 2016 06:02 - CONCLUSION: Stable chest appearance Terrance Wood MD CT Angiography 09/05/16 1436 Signed Impressions: Service Date/Time: September 16:08 - CONCLUSION: Significant infiltrate with near complete opacification of the left lower lobe. Both the left upper lobe and left lower lobe bronchi are markedly narrowed. Bronchoscopy is recommended to evaluate the left bronchi. Airspace of the right upper lobe possible pneumonia. No evidence of pulmonary emboli. Neal Mehta MD Head CT 09/05/16 0000 Signed Impressions: Service Date/Time: September 11:10 - CONCLUSION: No acute intracranial disease. Kike Serrano MD Abdomen/Pelvis CT 09/05/16 0000 Signed Impressions: Service Date/Time: September 16:08 - CONCLUSION: Normal examination of the abdomen or pelvis. Dense infiltrate left lower lobe. Erosive changes both SI joints. Neal Mehta MD Objective Remarks GENERAL: This is a well-nourished, well-developed patient, in no apparent distress. CARDIOVASCULAR: Regular rate and regular rhythm without murmurs, gallops, or rubs. RESPIRATORY: Clear to auscultation. Breath sounds equal bilaterally. No wheezes , rales, or rhonchi. GASTROINTESTINAL: Abdomen soft, non-tender, nondistended. Normal, active bowel sounds MUSCULOSKELETAL: Extremities without clubbing, cyanosis, or edema. NEURO: Alert & Oriented x4 to person, place, time, situation. Moves all ext x4 Procedures endotracheal intubation. Medications and IVs Current Medications IV Flush 2 ml 2 ml UNSCH PRN IVF FLUSH AFTER USING IV ACCESS Last administered on 09/05/16 09:52; Start 09/05/16 at 08:45; Stop 09/05/16 at 17:27; Status DC Sodium Chloride (NS 1000 ml Inj) 1,000 ml @ 999 mls/hr BOLUS ONCE IV Last administered on 09/05/16 08:51; Start 09/05/16 at 08:45; Stop 09/05/16 at 09:45; Status DC Azithromycin 500 mg 500 mg ONCE ONCE PO Last administered on 09/05/16 13:13; Start 09/05/16 at 12:45; Stop 09/05/16 at 14:34; Status DC Levofloxacin/ Dextrose (Levaquin 750 Mg Premix Inj) 150 ml @ 100 mls/hr ONCE ONCE IV Last administered on 09/05/16 14:49; Start 09/05/16 at 14:45; Stop at 16:14; Status DC Naloxone HCl (Narcan Inj) 0.4 mg STK-MED ONCE .ROUTE Last administered on 16:42; Start 09/05/16 at 15:44; Stop 09/05/16 at 15:45; Status DC Naloxone HCl (Narcan Inj) 0.4 mg STK-MED ONCE .ROUTE Last administered on 16:42; Start 09/05/16 at 15:46; Stop 09/05/16 at 15:47; Status DC Ondansetron HCl (Zofran Inj) 4 mg STK-MED ONCE .ROUTE Last administered on 16:42; Start 09/05/16 at 15:47; Stop 09/05/16 at 15:48; Status DC Etomidate (Amidate Inj) 20 mg STK-MED ONCE .ROUTE ; Start 09/05/16 at 15:50; Stop 09/05/16 at 15:51; Status DC Succinylcholine Chloride 200 mg 200 mg STK-MED ONCE .ROUTE ; Start 09/05/16 at 15 :50; Stop 09/05/16 at 15:51; Status DC Propofol (Diprivan 1000 Mg/100ml Inj) 100 ml @ 0 mls/hr TITRATE IV Last administered on 09/07/16 09:38; Start 09/05/16 at 16:00; Stop 09/07/16 at 12:51; Status DC Succinylcholine Chloride (Quelicin Inj) 100 mg ONCE ONCE IV PUSH Last administered on 09/05/16 16:44; Start 09/05/16 at 16:00; Stop 09/05/16 at 16:02; Status DC Etomidate (Amidate Inj) 20 mg ONCE ONCE IV PUSH Last administered on 09/05/16 16:44; Start 09/05/16 at 16:00; Stop 09/05/16 at 16:02; Status DC Iohexol 60 ml 60 ml STK-MED ONCE IV Last administered on 09/05/16 16:07; Start 09/05/16 at 16:07; Stop 09/05/16 at 16:08; Status DC Sodium Chloride (NS 1000 ml Inj) 1,000 ml @ 50 mls/hr Q20H IV Last administered on 09/08/16 02:54; Start 09/05/16 at 17:00; Stop 09/08/16 at 19:57; Status DC IV Flush (NS Flush) 2 ml UNSCH PRN IV FLUSH FLUSH AFTER USING IV ACCESS Last administered on 09/08/16 08:46; Start 09/05/16 at 17:00 IV Flush (NS Flush) 2 ml BID IV FLUSH Last administered on 09/08/16 19:37; Start 09/05/16 at 21:00 Acetaminophen (Tylenol) 650 mg Q6H PRN PO PAIN 1-10 AND/OR FEVER >101F Last administered on 09/08/16 17:24; Start 09/05/16 at 17:00 Famotidine (Pepcid Inj) 20 mg Q12HR IV PUSH Last administered on 09/08/16 19:37 ; Start 09/05/16 at 21:00 Ondansetron HCl (Zofran Inj) 4 mg Q6H PRN IV NAUSEA OR VOMITING; Start 09/05/16 at 17:00 Docusate Sodium (Colace Liq) 100 mg Q12H G-TUBE Last administered on 09/08/16 08:46; Start 09/05/16 at 20:00 Sennosides (Senokot) 17.2 mg Q12H PRN PO CONSTIPATION; Start 09/05/16 at 17:00 Albuterol/ Ipratropium (Duoneb Neb) 1 ampule Q6HR NEB INH Last administered on 09/08/16 08:00; Start 09/05/16 at 22:00; Stop 09/08/16 at 13:01; Status DC Albuterol/ Ipratropium (Duoneb Neb) 1 ampule Q2HR NEB PRN INH WHEEZING Last administered on 09/09/16 02:42; Start 09/05/16 at 17:00 Enoxaparin Sodium (Lovenox Inj) 40 mg Q24H SQ Last administered on 09/08/16 19: 37; Start 09/05/16 at 20:00 Miscellaneous Information 1 Q361D XX ; Start 09/05/16 at 17:00 Chlorhexidine Gluconate (Chlorhexidine 2% Cloth) 3 pack Taper DAILY@04 TOP Last administered on 09/09/16 06:10; Start 09/06/16 at 04:00; Stop 09/02/17 at 03 :59 Chlorhexidine Gluconate 3 pack 3 pack UNSCH PRN TOP HYGIENIC CARE; Start at 17:00 Potassium Chloride 100 ml @ 50 mls/hr Q2H PRN IV For Potassium 2.8 - 3.2 mEq/L ; Start 09/05/16 at 17:00 Potassium Chloride (KCl 20 Meq Premix Inj) 100 ml @ 50 mls/hr Q2H PRN IV For Potassium 2.8 - 3.2 mEq/L; Start 09/05/16 at 17:00 Potassium Chloride 40 meq 40 meq UNSCH PRN PO/TUBE For Potassium 3.3 - 3.5 mEq/ L Last administered on 09/07/16 09:51; Start 09/05/16 at 17:00 Potassium Chloride 100 ml @ 25 mls/hr UNSCH PRN IV For Potassium 3.3 - 3.5 mEq /L; Start 09/05/16 at 17:00 Potassium Chloride 100 ml @ 50 mls/hr Q2H PRN IV For Potassium 3.3 - 3.5 mEq/L ; Start 09/05/16 at 17:00 Magnesium Sulfate/ Sodium Chloride (Magnesium Sulfate Inj/NS Inj) 100 ml @ 50 mls/hr UNSCH PRN IV For Magnesium 0.9 - 1.1 mg/dL; Start 09/05/16 at 17:00 Magnesium Oxide 800 mg 800 mg UNSCH PRN PO For Magnesium 1.2 - 1.6 mg/dL; Start 09/05/16 at 17:00 Magnesium Sulfate/ Sodium Chloride (Magnesium Sulfate Inj/NS Inj) 100 ml @ 50 mls/hr UNSCH PRN IV For Magnesium 1.2 - 1.6 mg/dL Last administered on 08:29; Start 09/05/16 at 17:00 Potassium Phosphate 2000 mg 2,000 mg Q4H PRN PO For Phosphorus < 2.5 mg/dL Last administered on 09/06/16 08:33; Start 09/05/16 at 17:00 Sodium Phosphate/ Sodium Chloride (Sodium Phosphate Inj/NS 250 ml Inj) 250 ml @ 42 mls/hr UNSCH PRN IV For Phosphorus < 2.5 mg/dL; Start 09/05/16 at 17:00 Potassium Chloride (KCl 40 Meq/30 ml Liq) 40 meq UNSCH PRN PO/TUBE SEE LABEL COMMENTS; Start 09/05/16 at 17:00 Potassium Phosphate 2000 mg 2,000 mg UNSCH PRN PO/TUBE SEE LABEL COMMENTS; Start 09/05/16 at 17:00 Potassium Phosphate/Sodium Chloride (Potassium Phosphate Inj/NS 250 ml Inj) 260 ml @ 42 mls/hr UNSCH PRN IV SEE LABEL COMMENTS; Start 09/05/16 at 17:00 Chlorhexidine Gluconate (Peridex 0.12% Liq) 15 ml BID@08,20 MT Last administered on 09/08/16 08:00; Start 09/05/16 at 20:00 Dextrose (D50w (Vial) Inj) 25 ml UNSCH PRN IV PUSH HYPOGLYCEMIA-SEE COMMENTS; Start 09/05/16 at 17:00 Glucagon 1 mg 1 mg UNSCH PRN OTHER HYPOGLYCEMIA-SEE COMMENTS; Start 09/05/16 at 17:00 Piperacillin Sod/ Tazobactam Sod 100 ml @ 200 mls/hr Q6H IV Last administered on 09/09/16 02:15; Start 09/05/16 at 20:00 Azithromycin 500 mg/Sodium Chloride 250 ml @ 250 mls/hr Q24H IV Last administered on 09/08/16 12:10; Start 09/06/16 at 13:00 Vancomycin HCl 1250 mg/Sodium Chloride 262.5 ml @ 250 mls/hr ONCE ONCE IV ; Start 09/05/16 at 19:00; Stop 09/05/16 at 20:02; Status UNV Pharmacy Profile Note 0 ml @ 0 mls/hr UNSCH OTHER ; Start 09/05/16 at 19:00 Vancomycin HCl/ Sodium Chloride (Vancomycin Inj/ NS 250 ml Inj) 262.5 ml @ 250 mls/hr Q8H IV Last administered on 09/06/16 22:29; Start 09/05/16 at 22:00; Stop 09/07/16 at 11:59; Status DC Miscellaneous Information SPECIFIC LAB TO BE OSWALDO... ONCE ONCE XX ; Start at 21:45; Stop 09/06/16 at 21:46; Status DC Magnesium Sulfate/ Dextrose (Magnesium Sulfate 1 Gm Premix) 100 ml @ 100 mls/ hr Q1H IV ; Start 09/06/16 at 09:00; Stop 09/06/16 at 10:59; Status DC Acetaminophen/ Hydrocodone Bitart ([place] 10-325 Mg) 1 tab Q6H PO ; Start at 11:00; Stop 09/07/16 at 11:00; Status DC Methadone HCl 45 mg 45 mg DAILY PO Last administered on 09/07/16 11:45; Start 09/07/16 at 11:00; Stop 09/07/16 at 17:33; Status DC Vancomycin HCl/ Sodium Chloride (Vancomycin Inj/ NS 250 ml Inj) 250 ml @ 250 mls/hr Q8H IV Last administered on 09/08/16 12:10; Start 09/07/16 at 13:00; Stop 09/08/16 at 14:04; Status DC Miscellaneous Information SPECIFIC LAB TO BE DRAWN:VANCOMYCIN TROUGH DATE TO... ONCE ONCE XX Last administered on 09/08/16 12:05; Start 09/08/16 at 12:45; Stop 09/08/16 at 12:46; Status DC Propofol 100 ml @ 0 mls/hr TITRATE IV ; Start 09/07/16 at 13:00; Stop 09/07/16 at 13:41; Status DC Dexmedetomidine HCl 50 ml @ 0 mls/hr TITRATE IV Last administered on 09/08/16 08:45; Start 09/07/16 at 13:45; Stop 09/08/16 at 19:57; Status DC Propofol (Diprivan 1000 Mg/100ml Inj) 100 ml @ 0 mls/hr TITRATE IV ; Start at 13:45; Stop 09/08/16 at 19:57; Status DC Methadone HCl (Methadone Liq) 20 mg DAILY PO Last administered on 09/08/16 10: 13; Start 09/08/16 at 09:00 Lorazepam (Ativan Inj) 1 mg Q4H PRN IVP ANXIETY; Start 09/08/16 at 11:45; Stop 09/08/16 at 11:48; Status DC Acetaminophen (Ofirmev Inj) 1,000 mg Q6H PRN IV PAIN SCALE 7 TO 10; Start at 11:45; Stop 09/08/16 at 11:48; Status DC Albuterol/ Ipratropium 1 ampule 1 ampule TID NEB INH Last administered on 08:01; Start 09/08/16 at 14:00 Vancomycin HCl/ Sodium Chloride (Vancomycin Inj/ NS 250 ml Inj) 262.5 ml @ 250 mls/hr Q12H IV Last administered on 09/09/16 01:08; Start 09/09/16 at 01:00 Miscellaneous Information SPECIFIC LAB TO BE DRAWN:VANCOMY... ONCE ONCE XX ; Start 09/09/16 at 12:45; Stop 09/09/16 at 12:46 A/P Assessment and Plan A/P Toxic Encephalopathy-improved. Suicidal ideations Multiple suicide attempts Chronic Pain Patient's prescription medications include Seroquel, symptomatology suspicious for overdose-confirmed by patient and family postextubation Patient previously on methadone 45 mg daily complaining of pain methadone reinitiated a decreased dose 20 mg daily Psychiatry consulted. Acute hypoxemic respiratory failure Multilobular Pneumonia CXR 3/2-questionable infiltrate right mid lung, possible pneumonia CT chest 3/2-complete left lower lobe opacification, right upper lobe possible pneumonia Pulmonology to perform bronchoscopy due to Left bronchi narrowing and BAL to obtain specimens to send for culture Empiric Abx continue neb treatment Sinus tachycardia- improved Community-acquired pneumonia Mild leukocytosis-resolved From bronchoscopy obtain BAL sent for culture Continue to monitor CBC Empiric antibiotics Vanc , Zosyn and Azithromycin (day 4) Prophylaxis: GI Prophylaxis Pepcid DVT Prophylaxis -- SCDs Lovenox 40 mg /day transfer to floor. d/w the Audrey Esparza MD Sep 09, 2016 08:58
[2016-09-09] MEDS ORDERED: PHARMACY ORDERED LAB XX ONE (12:45)
[2016-09-09] MEDS: AZITHROMYCIN INJ 500 MG in SODIUM CHLOR 0.9% 250 ML INJ 250 ML IV SCH (13:00)
--- NOTE | 2016-09-09 16:45 | HHI.PR ---
Subjective Remarks ALERT UP IN CHAIR NO SOB Objective Last 48 hours Impressions Chest X-Ray 09/08/16 0000 Signed Impressions: Service Date/Time: Thursday, September 08, 2016 06:02 - CONCLUSION: Stable chest appearance Terrance Wood MD Vital Signs Date Time Temp Pulse Resp B/P Pulse Ox O2 Delivery O2 Flow Rate FiO2 09/09/16 14:00 78 09/09/16 12:00 94 09/09/16 12:00 98.3 89 18 149/68 99 09/09/16 10:00 91 09/09/16 09:35 18 09/09/16 08:04 97 09/09/16 08:00 94 09/09/16 08:00 98.6 94 16 165/75 97 09/09/16 06:00 69 09/09/16 04:00 98.6 100 16 163/93 96 09/09/16 04:00 100 09/09/16 02:00 76 09/09/16 00:00 98.4 74 16 144/81 93 09/09/16 00:00 74 09/08/16 22:00 83 09/08/16 20:26 97 21 09/08/16 20:00 81 09/08/16 20:00 98.7 81 17 153/80 94 09/08/16 18:00 85 I/O 09/08/16 09/08/16 09/08/16 09/09/16 09/09/16 09/09/16 07:00 15:00 23:00 07:00 15:00 23:00 Intake Total 865 ml 2197 ml 1241 ml 880 ml 800 ml Output Total 550 ml 950 ml 1000 ml 1200 ml Balance 315 ml 1247 ml 241 ml -320 ml 800 ml Intake Oral 1000 ml 240 ml 240 ml 400 ml IV Total 540 ml 988 ml 1001 ml 640 ml 400 ml Tube Feeding 325 ml 209 ml 0 ml Output Urine Total 550 ml 950 ml 1000 ml 1200 ml # Voids 5 # Bowel Movements 0 0 1 1 3 Result Diagram: 09/08/16 0920 09/08/16 0920 Assessment and Plan Assessment and Plan REPIRATORY FAIILURE , RESOLVED ? NARIOWED BRONCHI PLAN INCREASE ACTIVITY BRONCHOSCOPY WHEN ON REG. FLOOR Rose Rose MD Sep 09, 2016 16:45
[2016-09-09] MEDS: ENOXAPARIN SODIUM 40 MG/0.4 ML SYRINGE SQ SCH (19:35)
[2016-09-09] MEDS ORDERED: cloNIDine HCL 0.1 MG TAB PO ONE (20:00)
[2016-09-10] VITALS (14 sets, daily range): BP systolic 143–171; BP diastolic 91–101; PULSE 18–85; RESP 18–20; TEMP 97.8–98.8; O2SAT 96–100
[2016-09-10] MEDS: PIPERACIL-TAZO 4.5 GM PREMIX 100 ML IV SCH ×4 (03:25→22:15)
[2016-09-10] MEDS: CHLORHEXIDINE GLUCONATE 2 % 1 PACK (2 CLOTHS) TOP SCH (03:25)
[2016-09-10] MEDS: RESP: ALBUTEROL 2.5 MG/IPRATROPIUM 0.5 MG NEB (SCH) INH ×3 (07:32→20:28)
[2016-09-10] MEDS: CHLORHEXIDINE 0.12% (ORAL KIT) 15 ML CUP MT SCH ×2 (08:00→20:00)
--- NOTE | 2016-09-10 08:22 | HHI.PR ---
Subjective Remarks resting comfortably with no distress. no sob or chest pain. afebrile. Objective Vitals Vital Signs Date Time Temp Pulse Resp B/P Pulse Ox O2 Delivery O2 Flow Rate FiO2 09/10/16 07:28 68 09/10/16 04:00 98.1 72 20 143/91 98 09/10/16 01:00 64 09/10/16 00:00 97.9 74 20 153/92 99 09/10/16 00:00 74 09/09/16 23:00 82 09/09/16 22:00 66 09/09/16 21:00 74 09/09/16 20:00 76 09/09/16 20:00 98.0 88 20 161/102 96 09/09/16 19:12 96 21 09/09/16 19:00 88 09/09/16 18:05 78 09/09/16 16:00 98.3 96 20 158/95 99 09/09/16 16:00 79 09/09/16 14:00 78 09/09/16 12:00 94 09/09/16 12:00 98.3 89 18 149/68 99 09/09/16 10:00 91 09/09/16 09:35 18 I/O 09/09/16 09/09/16 09/09/16 09/10/16 09/10/16 09/10/16 07:00 15:00 23:00 07:00 15:00 23:00 Intake Total 880 ml 800 ml 1104 ml Output Total 1200 ml 800 ml Balance -320 ml 800 ml 304 ml Intake Oral 240 ml 400 ml 720 ml IV Total 640 ml 400 ml 384 ml Output Urine Total 1200 ml 800 ml # Voids 5 # Bowel Movements 1 3 Result Diagram: 09/08/16 0920 09/10/16 0619 Imaging Last Impressions Chest X-Ray 09/08/16 0000 Signed Impressions: Service Date/Time: Thursday, September 08, 2016 06:02 - CONCLUSION: Stable chest appearance Terrance Wood MD CT Angiography 09/05/16 1436 Signed Impressions: Service Date/Time: September 16:08 - CONCLUSION: Significant infiltrate with near complete opacification of the left lower lobe. Both the left upper lobe and left lower lobe bronchi are markedly narrowed. Bronchoscopy is recommended to evaluate the left bronchi. Airspace of the right upper lobe possible pneumonia. No evidence of pulmonary emboli. Neal Mehta MD Head CT 09/05/16 0000 Signed Impressions: Service Date/Time: September 11:10 - CONCLUSION: No acute intracranial disease. Kike Serrano MD Abdomen/Pelvis CT 09/05/16 0000 Signed Impressions: Service Date/Time: September 16:08 - CONCLUSION: Normal examination of the abdomen or pelvis. Dense infiltrate left lower lobe. Erosive changes both SI joints. Neal Mehta MD Objective Remarks GENERAL: This is a well-nourished, well-developed patient, in no apparent distress. CARDIOVASCULAR: Regular rate and regular rhythm without murmurs, gallops, or rubs. RESPIRATORY: Clear to auscultation. Breath sounds equal bilaterally. No wheezes , rales, or rhonchi. GASTROINTESTINAL: Abdomen soft, non-tender, nondistended. Normal, active bowel sounds MUSCULOSKELETAL: Extremities without clubbing, cyanosis, or edema. NEURO: Alert & Oriented x4 to person, place, time, situation. Moves all ext x4 Procedures endotracheal intubation. Medications and IVs Current Medications IV Flush 2 ml 2 ml UNSCH PRN IVF FLUSH AFTER USING IV ACCESS Last administered on 09/05/16 09:52; Start 09/05/16 at 08:45; Stop 09/05/16 at 17:27; Status DC Sodium Chloride (NS 1000 ml Inj) 1,000 ml @ 999 mls/hr BOLUS ONCE IV Last administered on 09/05/16 08:51; Start 09/05/16 at 08:45; Stop 09/05/16 at 09:45; Status DC Azithromycin 500 mg 500 mg ONCE ONCE PO Last administered on 09/05/16 13:13; Start 09/05/16 at 12:45; Stop 09/05/16 at 14:34; Status DC Levofloxacin/ Dextrose (Levaquin 750 Mg Premix Inj) 150 ml @ 100 mls/hr ONCE ONCE IV Last administered on 09/05/16 14:49; Start 09/05/16 at 14:45; Stop at 16:14; Status DC Naloxone HCl (Narcan Inj) 0.4 mg STK-MED ONCE .ROUTE Last administered on 16:42; Start 09/05/16 at 15:44; Stop 09/05/16 at 15:45; Status DC Naloxone HCl (Narcan Inj) 0.4 mg STK-MED ONCE .ROUTE Last administered on 16:42; Start 09/05/16 at 15:46; Stop 09/05/16 at 15:47; Status DC Ondansetron HCl (Zofran Inj) 4 mg STK-MED ONCE .ROUTE Last administered on 16:42; Start 09/05/16 at 15:47; Stop 09/05/16 at 15:48; Status DC Etomidate (Amidate Inj) 20 mg STK-MED ONCE .ROUTE ; Start 09/05/16 at 15:50; Stop 09/05/16 at 15:51; Status DC Succinylcholine Chloride 200 mg 200 mg STK-MED ONCE .ROUTE ; Start 09/05/16 at 15 :50; Stop 09/05/16 at 15:51; Status DC Propofol (Diprivan 1000 Mg/100ml Inj) 100 ml @ 0 mls/hr TITRATE IV Last administered on 09/07/16 09:38; Start 09/05/16 at 16:00; Stop 09/07/16 at 12:51; Status DC Succinylcholine Chloride (Quelicin Inj) 100 mg ONCE ONCE IV PUSH Last administered on 09/05/16 16:44; Start 09/05/16 at 16:00; Stop 09/05/16 at 16:02; Status DC Etomidate (Amidate Inj) 20 mg ONCE ONCE IV PUSH Last administered on 09/05/16 16:44; Start 09/05/16 at 16:00; Stop 09/05/16 at 16:02; Status DC Iohexol 60 ml 60 ml STK-MED ONCE IV Last administered on 09/05/16 16:07; Start 09/05/16 at 16:07; Stop 09/05/16 at 16:08; Status DC Sodium Chloride (NS 1000 ml Inj) 1,000 ml @ 50 mls/hr Q20H IV Last administered on 09/08/16 02:54; Start 09/05/16 at 17:00; Stop 09/08/16 at 19:57; Status DC IV Flush (NS Flush) 2 ml UNSCH PRN IV FLUSH FLUSH AFTER USING IV ACCESS Last administered on 09/08/16 08:46; Start 09/05/16 at 17:00 IV Flush (NS Flush) 2 ml BID IV FLUSH Last administered on 09/09/16 19:36; Start 09/05/16 at 21:00 Acetaminophen (Tylenol) 650 mg Q6H PRN PO PAIN 1-10 AND/OR FEVER >101F Last administered on 09/08/16 17:24; Start 09/05/16 at 17:00 Famotidine (Pepcid Inj) 20 mg Q12HR IV PUSH Last administered on 09/09/16 19:34 ; Start 09/05/16 at 21:00 Ondansetron HCl (Zofran Inj) 4 mg Q6H PRN IV NAUSEA OR VOMITING; Start 09/05/16 at 17:00 Docusate Sodium (Colace Liq) 100 mg Q12H G-TUBE Last administered on 09/08/16 08:46; Start 09/05/16 at 20:00 Sennosides (Senokot) 17.2 mg Q12H PRN PO CONSTIPATION; Start 09/05/16 at 17:00 Albuterol/ Ipratropium (Duoneb Neb) 1 ampule Q6HR NEB INH Last administered on 09/08/16 08:00; Start 09/05/16 at 22:00; Stop 09/08/16 at 13:01; Status DC Albuterol/ Ipratropium (Duoneb Neb) 1 ampule Q2HR NEB PRN INH WHEEZING Last administered on 09/09/16 02:42; Start 09/05/16 at 17:00 Enoxaparin Sodium (Lovenox Inj) 40 mg Q24H SQ Last administered on 09/09/16 19: 35; Start 09/05/16 at 20:00 Miscellaneous Information 1 Q361D XX ; Start 09/05/16 at 17:00 Chlorhexidine Gluconate (Chlorhexidine 2% Cloth) 3 pack Taper DAILY@04 TOP Last administered on 09/09/16 06:10; Start 09/06/16 at 04:00; Stop 09/02/17 at 03 :59 Chlorhexidine Gluconate 3 pack 3 pack UNSCH PRN TOP HYGIENIC CARE; Start at 17:00 Potassium Chloride 100 ml @ 50 mls/hr Q2H PRN IV For Potassium 2.8 - 3.2 mEq/L ; Start 09/05/16 at 17:00; Stop 09/09/16 at 08:55; Status DC Potassium Chloride (KCl 20 Meq Premix Inj) 100 ml @ 50 mls/hr Q2H PRN IV For Potassium 2.8 - 3.2 mEq/L; Start 09/05/16 at 17:00; Stop 09/09/16 at 08:55; Status DC Potassium Chloride 40 meq 40 meq UNSCH PRN PO/TUBE For Potassium 3.3 - 3.5 mEq/ L Last administered on 09/07/16 09:51; Start 09/05/16 at 17:00; Stop 09/09/16 at 08:55; Status DC Potassium Chloride 100 ml @ 25 mls/hr UNSCH PRN IV For Potassium 3.3 - 3.5 mEq /L; Start 09/05/16 at 17:00; Stop 09/09/16 at 08:55; Status DC Potassium Chloride 100 ml @ 50 mls/hr Q2H PRN IV For Potassium 3.3 - 3.5 mEq/L ; Start 09/05/16 at 17:00; Stop 09/09/16 at 08:56; Status DC Magnesium Sulfate/ Sodium Chloride (Magnesium Sulfate Inj/NS Inj) 100 ml @ 50 mls/hr UNSCH PRN IV For Magnesium 0.9 - 1.1 mg/dL; Start 09/05/16 at 17:00; Stop 09/09/16 at 08:56; Status DC Magnesium Oxide 800 mg 800 mg UNSCH PRN PO For Magnesium 1.2 - 1.6 mg/dL; Start 09/05/16 at 17:00; Stop 09/09/16 at 08:57; Status DC Magnesium Sulfate/ Sodium Chloride (Magnesium Sulfate Inj/NS Inj) 100 ml @ 50 mls/hr UNSCH PRN IV For Magnesium 1.2 - 1.6 mg/dL Last administered on 08:29; Start 09/05/16 at 17:00; Stop 09/09/16 at 08:57; Status DC Potassium Phosphate 2000 mg 2,000 mg Q4H PRN PO For Phosphorus < 2.5 mg/dL Last administered on 09/06/16 08:33; Start 09/05/16 at 17:00; Stop 09/09/16 at 08: 57; Status DC Sodium Phosphate/ Sodium Chloride (Sodium Phosphate Inj/NS 250 ml Inj) 250 ml @ 42 mls/hr UNSCH PRN IV For Phosphorus < 2.5 mg/dL; Start 09/05/16 at 17:00 Potassium Chloride (KCl 40 Meq/30 ml Liq) 40 meq UNSCH PRN PO/TUBE SEE LABEL COMMENTS; Start 09/05/16 at 17:00; Stop 09/09/16 at 08:57; Status DC Potassium Phosphate 2000 mg 2,000 mg UNSCH PRN PO/TUBE SEE LABEL COMMENTS; Start 09/05/16 at 17:00; Stop 09/09/16 at 08:57; Status DC Potassium Phosphate/Sodium Chloride (Potassium Phosphate Inj/NS 250 ml Inj) 260 ml @ 42 mls/hr UNSCH PRN IV SEE LABEL COMMENTS; Start 09/05/16 at 17:00; Stop 09/09/16 at 08:57; Status DC Chlorhexidine Gluconate (Peridex 0.12% Liq) 15 ml BID@08,20 MT Last administered on 09/08/16 08:00; Start 09/05/16 at 20:00 Dextrose (D50w (Vial) Inj) 25 ml UNSCH PRN IV PUSH HYPOGLYCEMIA-SEE COMMENTS; Start 09/05/16 at 17:00 Glucagon 1 mg 1 mg UNSCH PRN OTHER HYPOGLYCEMIA-SEE COMMENTS; Start 09/05/16 at 17:00 Piperacillin Sod/ Tazobactam Sod 100 ml @ 200 mls/hr Q6H IV Last administered on 09/10/16 03:25; Start 09/05/16 at 20:00 Azithromycin 500 mg/Sodium Chloride 250 ml @ 250 mls/hr Q24H IV Last administered on 09/09/16 13:00; Start 09/06/16 at 13:00 Vancomycin HCl 1250 mg/Sodium Chloride 262.5 ml @ 250 mls/hr ONCE ONCE IV ; Start 09/05/16 at 19:00; Stop 09/05/16 at 20:02; Status UNV Pharmacy Profile Note 0 ml @ 0 mls/hr UNSCH OTHER ; Start 09/05/16 at 19:00 Vancomycin HCl/ Sodium Chloride (Vancomycin Inj/ NS 250 ml Inj) 262.5 ml @ 250 mls/hr Q8H IV Last administered on 09/06/16 22:29; Start 09/05/16 at 22:00; Stop 09/07/16 at 11:59; Status DC Miscellaneous Information SPECIFIC LAB TO BE OSWALDO... ONCE ONCE XX ; Start at 21:45; Stop 09/06/16 at 21:46; Status DC Magnesium Sulfate/ Dextrose (Magnesium Sulfate 1 Gm Premix) 100 ml @ 100 mls/ hr Q1H IV ; Start 09/06/16 at 09:00; Stop 09/06/16 at 10:59; Status DC Acetaminophen/ Hydrocodone Bitart ([place] 10-325 Mg) 1 tab Q6H PO ; Start at 11:00; Stop 09/07/16 at 11:00; Status DC Methadone HCl 45 mg 45 mg DAILY PO Last administered on 09/07/16 11:45; Start 09/07/16 at 11:00; Stop 09/07/16 at 17:33; Status DC Vancomycin HCl/ Sodium Chloride (Vancomycin Inj/ NS 250 ml Inj) 250 ml @ 250 mls/hr Q8H IV Last administered on 09/08/16 12:10; Start 09/07/16 at 13:00; Stop 09/08/16 at 14:04; Status DC Miscellaneous Information SPECIFIC LAB TO BE DRAWN:VANCOMYCIN TROUGH DATE TO... ONCE ONCE XX Last administered on 09/08/16 12:05; Start 09/08/16 at 12:45; Stop 09/08/16 at 12:46; Status DC Propofol 100 ml @ 0 mls/hr TITRATE IV ; Start 09/07/16 at 13:00; Stop 09/07/16 at 13:41; Status DC Dexmedetomidine HCl 50 ml @ 0 mls/hr TITRATE IV Last administered on 09/08/16 08:45; Start 09/07/16 at 13:45; Stop 09/08/16 at 19:57; Status DC Propofol (Diprivan 1000 Mg/100ml Inj) 100 ml @ 0 mls/hr TITRATE IV ; Start at 13:45; Stop 09/08/16 at 19:57; Status DC Methadone HCl (Methadone Liq) 20 mg DAILY PO Last administered on 09/09/16 08: 48; Start 09/08/16 at 09:00 Lorazepam (Ativan Inj) 1 mg Q4H PRN IVP ANXIETY; Start 09/08/16 at 11:45; Stop 09/08/16 at 11:48; Status DC Acetaminophen (Ofirmev Inj) 1,000 mg Q6H PRN IV PAIN SCALE 7 TO 10; Start at 11:45; Stop 09/08/16 at 11:48; Status DC Albuterol/ Ipratropium 1 ampule 1 ampule TID NEB INH Last administered on 07:32; Start 09/08/16 at 14:00 Vancomycin HCl/ Sodium Chloride (Vancomycin Inj/ NS 250 ml Inj) 262.5 ml @ 250 mls/hr Q12H IV Last administered on 09/09/16 23:55; Start 09/09/16 at 01:00 Miscellaneous Information SPECIFIC LAB TO BE DRAWN:VANCOMY... ONCE ONCE XX ; Start 09/09/16 at 12:45; Stop 09/09/16 at 12:45; Status DC Miscellaneous Information SPECIFIC LAB TO BE DRAWN:VANCO TROUGH DATE TO BE DR... ONCE ONCE XX ; Start 09/10/16 at 12:45; Stop 09/10/16 at 12:46 Clonidine (Catapres) 0.1 mg ONCE ONCE PO Last administered on 09/09/16 20:00; Start 09/09/16 at 20:00; Stop 09/09/16 at 20:01; Status DC A/P Assessment and Plan A/P Toxic Encephalopathy-improved. Suicidal ideations Multiple suicide attempts Chronic Pain Patient's prescription medications include Seroquel, symptomatology suspicious for overdose-confirmed by patient and family postextubation Patient previously on methadone 45 mg daily complaining of pain methadone reinitiated a decreased dose 20 mg daily Psychiatry consulted ( pending). Acute hypoxemic respiratory failure Multilobular Pneumonia CXR 3/2-questionable infiltrate right mid lung, possible pneumonia CT chest 3/2-complete left lower lobe opacification, right upper lobe possible pneumonia Pulmonology to perform bronchoscopy due to Left bronchi narrowing and BAL to obtain specimens to send for culture Empiric Abx for now continue neb treatment Sinus tachycardia- improved Community-acquired pneumonia Mild leukocytosis-resolved From bronchoscopy obtain BAL sent for culture Continue to monitor CBC Empiric antibiotics Vanc , Zosyn and Azithromycin (day 4) Prophylaxis: GI Prophylaxis Pepcid DVT Prophylaxis -- SCDs Lovenox 40 mg /day Discharge Planning pending bronchoscopy and pulmonary clearance. Audrey Luevano MD Sep 10, 2016 08:22
[2016-09-10] MEDS: METHADONE HCL 10 MG/10 ML ORAL SOLUTION PO SCH (09:26)
[2016-09-10] MEDS: SODIUM CHLORIDE 0.9% FLUSH 5 ML FLUSH IV FLUSH SCH ×2 (09:28→22:15)
[2016-09-10] MEDS: FAMOTIDINE 20 MG/2 ML VIAL IV PUSH SCH ×2 (09:29→22:19)
[2016-09-10] MEDS: DOCUSATE SODIUM 100 MG/10 ML UDC G-TUBE SCH ×2 (09:33→20:00)
[2016-09-10] MEDS ORDERED: PHARMACY ORDERED LAB XX ONE (12:45)
[2016-09-10] MEDS: AZITHROMYCIN INJ 500 MG in SODIUM CHLOR 0.9% 250 ML INJ 250 ML IV SCH (13:00)
[2016-09-10] MEDS: VANCOMYCIN INJ 1,250 MG in SODIUM CHLOR 0.9% 250 ML INJ 250 ML IV SCH (14:00)
--- NOTE | 2016-09-10 15:59 | HHI.PR ---
Subjective Remarks ALERT UP IN CHAIR NO SOB Objective Vital Signs Date Time Temp Pulse Resp B/P Pulse Ox O2 Delivery O2 Flow Rate FiO2 09/10/16 12:24 98.8 75 18 145/98 96 09/10/16 11:25 98.8 75 18 145/98 97 09/10/16 11:20 75 09/10/16 10:27 83 09/10/16 10:04 71 09/10/16 09:00 83 09/10/16 08:43 68 09/10/16 08:00 98.2 18 18 152/96 100 09/10/16 07:28 68 09/10/16 04:00 98.1 72 20 143/91 98 09/10/16 01:00 64 09/10/16 00:00 97.9 74 20 153/92 99 09/10/16 00:00 74 09/09/16 23:00 82 09/09/16 22:00 66 09/09/16 21:00 74 09/09/16 20:00 76 09/09/16 20:00 98.0 88 20 161/102 96 09/09/16 19:12 96 21 09/09/16 19:00 88 09/09/16 18:05 78 09/09/16 16:00 98.3 96 20 158/95 99 09/09/16 16:00 79 I/O 09/09/16 09/09/16 09/09/16 09/10/16 09/10/16 09/10/16 07:00 15:00 23:00 07:00 15:00 23:00 Intake Total 880 ml 800 ml 1104 ml Output Total 1200 ml 800 ml 450 ml Balance -320 ml 800 ml 304 ml -450 ml Intake Oral 240 ml 400 ml 720 ml IV Total 640 ml 400 ml 384 ml Output Urine Total 1200 ml 800 ml 450 ml # Voids 5 # Bowel Movements 1 3 Result Diagram: 09/08/16 0920 09/10/16 0619 Objective Remarks GENERAL: SKIN: Warm and dry. HEAD: Atraumatic. Normocephalic. EYES: Pupils equal and round. No scleral icterus. No injection or drainage. ENT: No nasal bleeding or discharge. Mucous membranes pink and moist. NECK: Trachea midline. No JVD. CARDIOVASCULAR: Regular rate and rhythm. RESPIRATORY: No accessory muscle use. Clear to auscultation. Breath sounds equal bilaterally. GASTROINTESTINAL: Abdomen soft, non-tender, nondistended. Hepatic and splenic margins not palpable. MUSCULOSKELETAL: Extremities without clubbing, cyanosis, or edema. No obvious deformities. NEUROLOGICAL: Awake and alert. No obvious cranial nerve deficits. Motor grossly within normal limits. Five out of 5 muscle strength in the arms and legs. Normal speech. PSYCHIATRIC: Appropriate mood and affect; insight and judgment normal. Assessment and Plan Assessment and Plan REPIRATORY FAIILURE , RESOLVED ? NARIOWED BRONCHI PLAN INCREASE ACTIVITY BRONCHOSCOPY WHEN ON REG. FLOOR Rose Rose MD Sep 10, 2016 15:59
[2016-09-10] MEDS: ENOXAPARIN SODIUM 40 MG/0.4 ML SYRINGE SQ SCH (22:21)
[2016-09-11] VITALS (16 sets, daily range): BP systolic 144–164; BP diastolic 81–102; PULSE 67–85; RESP 15–20; TEMP 97.9–98.8; O2SAT 97–100
[2016-09-11] MEDS: PIPERACIL-TAZO 4.5 GM PREMIX 100 ML IV SCH ×4 (02:09→21:22)
[2016-09-11] MEDS: VANCOMYCIN INJ 1,500 MG in SODIUM CHLORID 0.9% 500 ML INJ 500 ML IV SCH ×2 (02:11→15:10)
[2016-09-11] MEDS: CHLORHEXIDINE GLUCONATE 2 % 1 PACK (2 CLOTHS) TOP SCH (02:12)
[2016-09-11 06:49] LABS: BICARBONATE 27.6 MEQ/L (21.0-32.0); POTASSIUM 3.7 MEQ/L (3.5-5.1)
[2016-09-11] MEDS: CHLORHEXIDINE 0.12% (ORAL KIT) 15 ML CUP MT SCH ×2 (07:41→20:00)
[2016-09-11] MEDS: DOCUSATE SODIUM 100 MG/10 ML UDC G-TUBE SCH ×2 (08:00→20:00)
--- NOTE | 2016-09-11 08:17 | HHI.PR ---
Subjective Remarks in no acute distress. no sob or cough or fever. no new complaints. Objective Vitals Vital Signs Date Time Temp Pulse Resp B/P Pulse Ox O2 Delivery O2 Flow Rate FiO2 09/11/16 04:03 67 09/11/16 04:00 98.6 78 18 150/87 99 09/11/16 00:00 98.0 73 18 149/81 98 09/11/16 00:00 82 09/10/16 20:00 81 09/10/16 20:00 98.0 85 20 163/94 98 09/10/16 18:02 97.8 75 18 171/101 97 09/10/16 12:24 98.8 75 18 145/98 96 09/10/16 11:25 98.8 75 18 145/98 97 09/10/16 11:20 75 09/10/16 10:27 83 09/10/16 10:04 71 09/10/16 09:00 83 09/10/16 08:43 68 I/O 09/10/16 09/10/16 09/10/16 09/11/16 09/11/16 09/11/16 07:00 15:00 23:00 07:00 15:00 23:00 Intake Total 1104 ml 1500 ml 240 ml Output Total 800 ml 450 ml 980 ml 2500 ml Balance 304 ml -450 ml 520 ml -2260 ml Intake Oral 720 ml 800 ml 240 ml IV Total 384 ml 700 ml Output Urine Total 800 ml 450 ml 980 ml 2500 ml # Bowel Movements 0 1 Result Diagram: 09/08/16 0920 09/11/16 0435 Imaging Last Impressions Chest X-Ray 09/08/16 0000 Signed Impressions: Service Date/Time: Thursday, September 08, 2016 06:02 - CONCLUSION: Stable chest appearance Terrance Wood MD CT Angiography 09/05/16 1436 Signed Impressions: Service Date/Time: September 16:08 - CONCLUSION: Significant infiltrate with near complete opacification of the left lower lobe. Both the left upper lobe and left lower lobe bronchi are markedly narrowed. Bronchoscopy is recommended to evaluate the left bronchi. Airspace of the right upper lobe possible pneumonia. No evidence of pulmonary emboli. Neal Mehta MD Head CT 09/05/16 0000 Signed Impressions: Service Date/Time: September 11:10 - CONCLUSION: No acute intracranial disease. Kike Serrano MD Abdomen/Pelvis CT 09/05/16 0000 Signed Impressions: Service Date/Time: September 16:08 - CONCLUSION: Normal examination of the abdomen or pelvis. Dense infiltrate left lower lobe. Erosive changes both SI joints. Neal Mehta MD Objective Remarks GENERAL: This is a well-nourished, well-developed patient, in no apparent distress. CARDIOVASCULAR: Regular rate and regular rhythm without murmurs, gallops, or rubs. RESPIRATORY: Clear to auscultation. Breath sounds equal bilaterally. No wheezes , rales, or rhonchi. GASTROINTESTINAL: Abdomen soft, non-tender, nondistended. Normal, active bowel sounds MUSCULOSKELETAL: Extremities without clubbing, cyanosis, or edema. NEURO: Alert & Oriented x4 to person, place, time, situation. Moves all ext x4 Procedures endotracheal intubation. Medications and IVs Current Medications IV Flush 2 ml 2 ml UNSCH PRN IVF FLUSH AFTER USING IV ACCESS Last administered on 09/05/16 09:52; Start 09/05/16 at 08:45; Stop 09/05/16 at 17:27; Status DC Sodium Chloride (NS 1000 ml Inj) 1,000 ml @ 999 mls/hr BOLUS ONCE IV Last administered on 09/05/16 08:51; Start 09/05/16 at 08:45; Stop 09/05/16 at 09:45; Status DC Azithromycin 500 mg 500 mg ONCE ONCE PO Last administered on 09/05/16 13:13; Start 09/05/16 at 12:45; Stop 09/05/16 at 14:34; Status DC Levofloxacin/ Dextrose (Levaquin 750 Mg Premix Inj) 150 ml @ 100 mls/hr ONCE ONCE IV Last administered on 09/05/16 14:49; Start 09/05/16 at 14:45; Stop at 16:14; Status DC Naloxone HCl (Narcan Inj) 0.4 mg STK-MED ONCE .ROUTE Last administered on 16:42; Start 09/05/16 at 15:44; Stop 09/05/16 at 15:45; Status DC Naloxone HCl (Narcan Inj) 0.4 mg STK-MED ONCE .ROUTE Last administered on 16:42; Start 09/05/16 at 15:46; Stop 09/05/16 at 15:47; Status DC Ondansetron HCl (Zofran Inj) 4 mg STK-MED ONCE .ROUTE Last administered on 16:42; Start 09/05/16 at 15:47; Stop 09/05/16 at 15:48; Status DC Etomidate (Amidate Inj) 20 mg STK-MED ONCE .ROUTE ; Start 09/05/16 at 15:50; Stop 09/05/16 at 15:51; Status DC Succinylcholine Chloride 200 mg 200 mg STK-MED ONCE .ROUTE ; Start 09/05/16 at 15 :50; Stop 09/05/16 at 15:51; Status DC Propofol (Diprivan 1000 Mg/100ml Inj) 100 ml @ 0 mls/hr TITRATE IV Last administered on 09/07/16 09:38; Start 09/05/16 at 16:00; Stop 09/07/16 at 12:51; Status DC Succinylcholine Chloride (Quelicin Inj) 100 mg ONCE ONCE IV PUSH Last administered on 09/05/16 16:44; Start 09/05/16 at 16:00; Stop 09/05/16 at 16:02; Status DC Etomidate (Amidate Inj) 20 mg ONCE ONCE IV PUSH Last administered on 09/05/16 16:44; Start 09/05/16 at 16:00; Stop 09/05/16 at 16:02; Status DC Iohexol 60 ml 60 ml STK-MED ONCE IV Last administered on 09/05/16 16:07; Start 09/05/16 at 16:07; Stop 09/05/16 at 16:08; Status DC Sodium Chloride (NS 1000 ml Inj) 1,000 ml @ 50 mls/hr Q20H IV Last administered on 09/08/16 02:54; Start 09/05/16 at 17:00; Stop 09/08/16 at 19:57; Status DC IV Flush (NS Flush) 2 ml UNSCH PRN IV FLUSH FLUSH AFTER USING IV ACCESS Last administered on 09/08/16 08:46; Start 09/05/16 at 17:00 IV Flush (NS Flush) 2 ml BID IV FLUSH Last administered on 09/10/16 22:15; Start 09/05/16 at 21:00 Acetaminophen (Tylenol) 650 mg Q6H PRN PO PAIN 1-10 AND/OR FEVER >101F Last administered on 09/08/16 17:24; Start 09/05/16 at 17:00 Famotidine (Pepcid Inj) 20 mg Q12HR IV PUSH Last administered on 09/10/16 22:19 ; Start 09/05/16 at 21:00 Ondansetron HCl (Zofran Inj) 4 mg Q6H PRN IV NAUSEA OR VOMITING; Start 09/05/16 at 17:00 Docusate Sodium (Colace Liq) 100 mg Q12H G-TUBE Last administered on 09/10/16 09:33; Start 09/05/16 at 20:00 Sennosides (Senokot) 17.2 mg Q12H PRN PO CONSTIPATION; Start 09/05/16 at 17:00 Albuterol/ Ipratropium (Duoneb Neb) 1 ampule Q6HR NEB INH Last administered on 09/08/16 08:00; Start 09/05/16 at 22:00; Stop 09/08/16 at 13:01; Status DC Albuterol/ Ipratropium (Duoneb Neb) 1 ampule Q2HR NEB PRN INH WHEEZING Last administered on 09/09/16 02:42; Start 09/05/16 at 17:00 Enoxaparin Sodium (Lovenox Inj) 40 mg Q24H SQ Last administered on 09/10/16 22: 21; Start 09/05/16 at 20:00 Miscellaneous Information 1 Q361D XX ; Start 09/05/16 at 17:00 Chlorhexidine Gluconate (Chlorhexidine 2% Cloth) Taper DAILY@04 TOP Last administered on 09/09/16 06:10; Start 09/06/16 at 04:00; Stop 09/02/17 at 03:59 Chlorhexidine Gluconate 3 pack 3 pack UNSCH PRN TOP HYGIENIC CARE; Start at 17:00 Potassium Chloride 100 ml @ 50 mls/hr Q2H PRN IV For Potassium 2.8 - 3.2 mEq/L ; Start 09/05/16 at 17:00; Stop 09/09/16 at 08:55; Status DC Potassium Chloride (KCl 20 Meq Premix Inj) 100 ml @ 50 mls/hr Q2H PRN IV For Potassium 2.8 - 3.2 mEq/L; Start 09/05/16 at 17:00; Stop 09/09/16 at 08:55; Status DC Potassium Chloride 40 meq 40 meq UNSCH PRN PO/TUBE For Potassium 3.3 - 3.5 mEq/ L Last administered on 09/07/16 09:51; Start 09/05/16 at 17:00; Stop 09/09/16 at 08:55; Status DC Potassium Chloride 100 ml @ 25 mls/hr UNSCH PRN IV For Potassium 3.3 - 3.5 mEq /L; Start 09/05/16 at 17:00; Stop 09/09/16 at 08:55; Status DC Potassium Chloride 100 ml @ 50 mls/hr Q2H PRN IV For Potassium 3.3 - 3.5 mEq/L ; Start 09/05/16 at 17:00; Stop 09/09/16 at 08:56; Status DC Magnesium Sulfate/ Sodium Chloride (Magnesium Sulfate Inj/NS Inj) 100 ml @ 50 mls/hr UNSCH PRN IV For Magnesium 0.9 - 1.1 mg/dL; Start 09/05/16 at 17:00; Stop 09/09/16 at 08:56; Status DC Magnesium Oxide 800 mg 800 mg UNSCH PRN PO For Magnesium 1.2 - 1.6 mg/dL; Start 09/05/16 at 17:00; Stop 09/09/16 at 08:57; Status DC Magnesium Sulfate/ Sodium Chloride (Magnesium Sulfate Inj/NS Inj) 100 ml @ 50 mls/hr UNSCH PRN IV For Magnesium 1.2 - 1.6 mg/dL Last administered on 08:29; Start 09/05/16 at 17:00; Stop 09/09/16 at 08:57; Status DC Potassium Phosphate 2000 mg 2,000 mg Q4H PRN PO For Phosphorus < 2.5 mg/dL Last administered on 09/06/16 08:33; Start 09/05/16 at 17:00; Stop 09/09/16 at 08: 57; Status DC Sodium Phosphate/ Sodium Chloride (Sodium Phosphate Inj/NS 250 ml Inj) 250 ml @ 42 mls/hr UNSCH PRN IV For Phosphorus < 2.5 mg/dL; Start 09/05/16 at 17:00 Potassium Chloride (KCl 40 Meq/30 ml Liq) 40 meq UNSCH PRN PO/TUBE SEE LABEL COMMENTS; Start 09/05/16 at 17:00; Stop 09/09/16 at 08:57; Status DC Potassium Phosphate 2000 mg 2,000 mg UNSCH PRN PO/TUBE SEE LABEL COMMENTS; Start 09/05/16 at 17:00; Stop 09/09/16 at 08:57; Status DC Potassium Phosphate/Sodium Chloride (Potassium Phosphate Inj/NS 250 ml Inj) 260 ml @ 42 mls/hr UNSCH PRN IV SEE LABEL COMMENTS; Start 09/05/16 at 17:00; Stop 09/09/16 at 08:57; Status DC Chlorhexidine Gluconate (Peridex 0.12% Liq) 15 ml BID@08,20 MT Last administered on 09/08/16 08:00; Start 09/05/16 at 20:00 Dextrose (D50w (Vial) Inj) 25 ml UNSCH PRN IV PUSH HYPOGLYCEMIA-SEE COMMENTS; Start 09/05/16 at 17:00 Glucagon 1 mg 1 mg UNSCH PRN OTHER HYPOGLYCEMIA-SEE COMMENTS; Start 09/05/16 at 17:00 Piperacillin Sod/ Tazobactam Sod 100 ml @ 200 mls/hr Q6H IV Last administered on 09/11/16 02:09; Start 09/05/16 at 20:00 Azithromycin 500 mg/Sodium Chloride 250 ml @ 250 mls/hr Q24H IV Last administered on 09/10/16 13:00; Start 09/06/16 at 13:00 Vancomycin HCl 1250 mg/Sodium Chloride 262.5 ml @ 250 mls/hr ONCE ONCE IV ; Start 09/05/16 at 19:00; Stop 09/05/16 at 20:02; Status UNV Pharmacy Profile Note 0 ml @ 0 mls/hr UNSCH OTHER ; Start 09/05/16 at 19:00 Vancomycin HCl/ Sodium Chloride (Vancomycin Inj/ NS 250 ml Inj) 262.5 ml @ 250 mls/hr Q8H IV Last administered on 09/06/16 22:29; Start 09/05/16 at 22:00; Stop 09/07/16 at 11:59; Status DC Miscellaneous Information SPECIFIC LAB TO BE OSWALDO... ONCE ONCE XX ; Start at 21:45; Stop 09/06/16 at 21:46; Status DC Magnesium Sulfate/ Dextrose (Magnesium Sulfate 1 Gm Premix) 100 ml @ 100 mls/ hr Q1H IV ; Start 09/06/16 at 09:00; Stop 09/06/16 at 10:59; Status DC Acetaminophen/ Hydrocodone Bitart (Axtell 10-325 Mg) 1 tab Q6H PO ; Start at 11:00; Stop 09/07/16 at 11:00; Status DC Methadone HCl 45 mg 45 mg DAILY PO Last administered on 09/07/16 11:45; Start 09/07/16 at 11:00; Stop 09/07/16 at 17:33; Status DC Vancomycin HCl/ Sodium Chloride (Vancomycin Inj/ NS 250 ml Inj) 250 ml @ 250 mls/hr Q8H IV Last administered on 09/08/16 12:10; Start 09/07/16 at 13:00; Stop 09/08/16 at 14:04; Status DC Miscellaneous Information SPECIFIC LAB TO BE DRAWN:VANCOMYCIN TROUGH DATE TO... ONCE ONCE XX Last administered on 09/08/16 12:05; Start 09/08/16 at 12:45; Stop 09/08/16 at 12:46; Status DC Propofol 100 ml @ 0 mls/hr TITRATE IV ; Start 09/07/16 at 13:00; Stop 09/07/16 at 13:41; Status DC Dexmedetomidine HCl 50 ml @ 0 mls/hr TITRATE IV Last administered on 09/08/16 08:45; Start 09/07/16 at 13:45; Stop 09/08/16 at 19:57; Status DC Propofol (Diprivan 1000 Mg/100ml Inj) 100 ml @ 0 mls/hr TITRATE IV ; Start at 13:45; Stop 09/08/16 at 19:57; Status DC Methadone HCl (Methadone Liq) 20 mg DAILY PO Last administered on 09/10/16 09: 26; Start 09/08/16 at 09:00 Lorazepam (Ativan Inj) 1 mg Q4H PRN IVP ANXIETY; Start 09/08/16 at 11:45; Stop 09/08/16 at 11:48; Status DC Acetaminophen (Ofirmev Inj) 1,000 mg Q6H PRN IV PAIN SCALE 7 TO 10; Start at 11:45; Stop 09/08/16 at 11:48; Status DC Albuterol/ Ipratropium 1 ampule 1 ampule TID NEB INH Last administered on 20:28; Start 09/08/16 at 14:00 Vancomycin HCl/ Sodium Chloride (Vancomycin Inj/ NS 250 ml Inj) 262.5 ml @ 250 mls/hr Q12H IV Last administered on 09/10/16 14:00; Start 09/09/16 at 01:00; Stop 09/10/16 at 18:00; Status DC Miscellaneous Information SPECIFIC LAB TO BE DRAWN:VANCOMY... ONCE ONCE XX ; Start 09/09/16 at 12:45; Stop 09/09/16 at 12:45; Status DC Miscellaneous Information SPECIFIC LAB TO BE DRAWN:VANCO TROUGH DATE TO BE DR... ONCE ONCE XX ; Start 09/10/16 at 12:45; Stop 09/10/16 at 12:46; Status DC Clonidine 0.1 mg 0.1 mg ONCE ONCE PO Last administered on 09/09/16 20:00; Start 09/09/16 at 20:00; Stop 09/09/16 at 20:01; Status DC Vancomycin HCl/ Sodium Chloride (Vancomycin Inj/ NS 500 ml Inj) 515 ml @ 250 mls/hr Q12H IV Last administered on 09/11/16 02:11; Start 09/11/16 at 02:00 Miscellaneous Information SPECIFIC LAB TO BE DRAWN:VANCOMYCIN TROUGH DATE TO... ONCE ONCE XX ; Start 09/12/16 at 13:45; Stop 09/12/16 at 13:46 A/P Assessment and Plan A/P Toxic Encephalopathy-improved. Suicidal ideations Multiple suicide attempts Chronic Pain Patient's prescription medications include Seroquel, symptomatology suspicious for overdose-confirmed by patient and family postextubation Patient previously on methadone 45 mg daily complaining of pain methadone reinitiated a decreased dose 20 mg daily awaiting psych evaluation ( psych reconsulted). Acute hypoxemic respiratory failure- resolved Multilobular Pneumonia CXR 3/2-questionable infiltrate right mid lung, possible pneumonia CT chest 3/2-complete left lower lobe opacification, right upper lobe possible pneumonia Pulmonology to perform bronchoscopy due to Left bronchi narrowing and BAL to obtain specimens to send for culture Empiric Abx for now continue neb treatment Sinus tachycardia- improved Community-acquired pneumonia Mild leukocytosis-resolved From bronchoscopy obtain BAL sent for culture Continue to monitor CBC Empiric antibiotics Vanc , Zosyn and Azithromycin Hypertension on clonidine at home; will resume. Prophylaxis: GI Prophylaxis Pepcid DVT Prophylaxis -- SCDs Lovenox 40 mg /day Discharge Planning pending bronchoscopy and pulmonary clearance. Audrey Luevano MD Sep 11, 2016 08:17
[2016-09-11] MEDS: RESP: ALBUTEROL 2.5 MG/IPRATROPIUM 0.5 MG NEB (SCH) INH ×2 (08:23→21:00)
[2016-09-11] MEDS ORDERED: ENALAPRILAT 1.25 MG/ML VIAL IV PUSH PRN (08:30)
[2016-09-11] MEDS: METHADONE HCL 10 MG/10 ML ORAL SOLUTION PO SCH (08:55)
[2016-09-11] MEDS: FAMOTIDINE 20 MG/2 ML VIAL IV PUSH SCH ×2 (08:57→21:23)
[2016-09-11] MEDS: SODIUM CHLORIDE 0.9% FLUSH 5 ML FLUSH IV FLUSH PRN (08:58)
[2016-09-11] MEDS: SODIUM CHLORIDE 0.9% FLUSH 5 ML FLUSH IV FLUSH SCH ×2 (08:58→21:23)
[2016-09-11] MEDS: AZITHROMYCIN INJ 500 MG in SODIUM CHLOR 0.9% 250 ML INJ 250 ML IV SCH (12:46)
[2016-09-11 14:01] LABS: PHENCYCLIDINE URINE NEG (NEG)
[2016-09-11 14:03] LABS: BATH SALTS (MDPV) UR NEG (NEG); ECSTASY (MDMA) UR NEG (NEG); HEROIN (6-ACETYLMORPHINE) UR NEG (NEG); K2 SPICE UR NEG (NEG); OBMETHADONE UR POS (NEG)
[2016-09-11 14:04] LABS: OXYCODONE (PERCODAN) NEG (NEG)
--- NOTE | 2016-09-11 16:11 | HHI.PR ---
Subjective Remarks ALERT UP IN CHAIR NO SOB Objective Vital Signs Date Time Temp Pulse Resp B/P Pulse Ox O2 Delivery O2 Flow Rate FiO2 09/11/16 12:01 98.0 74 16 144/85 100 09/11/16 11:58 75 09/11/16 11:00 79 09/11/16 10:05 16 09/11/16 09:29 79 09/11/16 08:25 99 21 09/11/16 08:15 97.9 78 15 156/102 99 09/11/16 04:03 67 09/11/16 04:00 98.6 78 18 150/87 99 09/11/16 00:00 98.0 73 18 149/81 98 09/11/16 00:00 82 09/10/16 20:00 81 09/10/16 20:00 98.0 85 20 163/94 98 09/10/16 18:02 97.8 75 18 171/101 97 I/O 09/10/16 09/10/16 09/10/16 09/11/16 09/11/16 09/11/16 07:00 15:00 23:00 07:00 15:00 23:00 Intake Total 1104 ml 1500 ml 240 ml Output Total 800 ml 450 ml 980 ml 2500 ml Balance 304 ml -450 ml 520 ml -2260 ml Intake Oral 720 ml 800 ml 240 ml IV Total 384 ml 700 ml Output Urine Total 800 ml 450 ml 980 ml 2500 ml # Bowel Movements 0 1 Result Diagram: 09/08/16 0920 09/11/16 0435 Objective Remarks GENERAL: SKIN: Warm and dry. HEAD: Atraumatic. Normocephalic. EYES: Pupils equal and round. No scleral icterus. No injection or drainage. ENT: No nasal bleeding or discharge. Mucous membranes pink and moist. NECK: Trachea midline. No JVD. CARDIOVASCULAR: Regular rate and rhythm. RESPIRATORY: No accessory muscle use. Clear to auscultation. Breath sounds equal bilaterally. GASTROINTESTINAL: Abdomen soft, non-tender, nondistended. Hepatic and splenic margins not palpable. MUSCULOSKELETAL: Extremities without clubbing, cyanosis, or edema. No obvious deformities. NEUROLOGICAL: Awake and alert. No obvious cranial nerve deficits. Motor grossly within normal limits. Five out of 5 muscle strength in the arms and legs. Normal speech. PSYCHIATRIC: Appropriate mood and affect; insight and judgment normal. Assessment and Plan Assessment and Plan REPIRATORY FAIILURE , RESOLVED ? NARIOWED BRONCHI PLAN INCREASE ACTIVITY BRONCHOSCOPY tomorrow Rose Rose MD Sep 11, 2016 16:11
[2016-09-11] MEDS ORDERED: RESP: ALBUTEROL CONC 2.5 MG/0.5 ML NEB NEB SCH (16:15)
[2016-09-11] MEDS ORDERED: RESP: LIDOCAINE HCL 4% PF 5 ML NEB NEB SCH (16:15)
[2016-09-11] MEDS: cloNIDine HCL 0.1 MG TAB PO SCH (21:23)
[2016-09-11] MEDS: ENOXAPARIN SODIUM 40 MG/0.4 ML SYRINGE SQ SCH (21:23)
[2016-09-12] VITALS (20 sets, daily range): BP systolic 139–159; BP diastolic 78–97; PULSE 56–81; RESP 18–20; TEMP 97.6–97.9; O2SAT 97–100
[2016-09-12] MEDS: VANCOMYCIN INJ 1,500 MG in SODIUM CHLORID 0.9% 500 ML INJ 500 ML IV SCH ×2 (02:33→14:20)
[2016-09-12] MEDS: PIPERACIL-TAZO 4.5 GM PREMIX 100 ML IV SCH ×4 (02:33→21:07)
[2016-09-12] MEDS: CHLORHEXIDINE GLUCONATE 2 % 1 PACK (2 CLOTHS) TOP SCH (04:00)
[2016-09-12] MEDS: DOCUSATE SODIUM 100 MG/10 ML UDC G-TUBE SCH ×2 (08:00→20:00)
[2016-09-12] MEDS: CHLORHEXIDINE 0.12% (ORAL KIT) 15 ML CUP MT SCH ×2 (08:00→20:00)
[2016-09-12] MEDS: RESP: ALBUTEROL 2.5 MG/IPRATROPIUM 0.5 MG NEB (SCH) INH ×2 (08:00→13:23)
[2016-09-12] MEDS: SODIUM CHLORIDE 0.9% FLUSH 5 ML FLUSH IV FLUSH SCH ×2 (08:27→21:00)
[2016-09-12] MEDS: METHADONE HCL 10 MG/10 ML ORAL SOLUTION PO SCH (08:32)
[2016-09-12] MEDS: FAMOTIDINE 20 MG/2 ML VIAL IV PUSH SCH ×2 (08:32→21:28)
[2016-09-12] MEDS ORDERED: LEVA500T PO (09:09)
--- NOTE | 2016-09-12 09:09 | HHI.PR ---
Subjective Remarks resting comfortably with no distress. no sob or chest pain. no fever. awaiting bronchoscopy. Objective Vitals Vital Signs Date Time Temp Pulse Resp B/P Pulse Ox O2 Delivery O2 Flow Rate FiO2 09/12/16 08:00 97.6 74 20 159/97 100 09/12/16 07:00 58 09/12/16 05:14 62 09/12/16 04:29 64 09/12/16 04:21 97.7 68 20 139/85 100 09/12/16 03:00 57 09/12/16 02:00 64 09/12/16 01:00 56 09/12/16 00:00 97.9 81 18 146/82 97 09/12/16 00:00 76 09/11/16 23:00 74 09/11/16 22:00 74 09/11/16 21:00 99 21 09/11/16 21:00 80 09/11/16 20:00 98.8 85 20 164/99 97 09/11/16 20:00 82 09/11/16 19:00 84 09/11/16 16:00 98.0 69 16 148/91 99 09/11/16 15:00 69 09/11/16 12:01 98.0 74 16 144/85 100 09/11/16 11:58 75 09/11/16 11:00 79 09/11/16 10:05 16 09/11/16 09:29 79 I/O 09/11/16 09/11/16 09/11/16 09/12/16 09/12/16 09/12/16 07:00 15:00 23:00 07:00 15:00 23:00 Intake Total 240 ml 1452 ml 1290 ml Output Total 2500 ml 1000 ml 450 ml Balance -2260 ml 452 ml 840 ml Intake Oral 240 ml 480 ml 840 ml IV Total 972 ml 450 ml Output Urine Total 2500 ml 1000 ml 450 ml # Bowel Movements 1 Result Diagram: 09/08/16 0920 09/12/16 0559 Imaging Last Impressions Chest X-Ray 09/08/16 0000 Signed Impressions: Service Date/Time: Thursday, September 08, 2016 06:02 - CONCLUSION: Stable chest appearance Terrance Wood MD CT Angiography 09/05/16 1436 Signed Impressions: Service Date/Time: September 16:08 - CONCLUSION: Significant infiltrate with near complete opacification of the left lower lobe. Both the left upper lobe and left lower lobe bronchi are markedly narrowed. Bronchoscopy is recommended to evaluate the left bronchi. Airspace of the right upper lobe possible pneumonia. No evidence of pulmonary emboli. Neal Mehta MD Head CT 09/05/16 0000 Signed Impressions: Service Date/Time: September 11:10 - CONCLUSION: No acute intracranial disease. Kike Serrano MD Abdomen/Pelvis CT 09/05/16 0000 Signed Impressions: Service Date/Time: September 16:08 - CONCLUSION: Normal examination of the abdomen or pelvis. Dense infiltrate left lower lobe. Erosive changes both SI joints. Neal Mehta MD Objective Remarks GENERAL: This is a well-nourished, well-developed patient, in no apparent distress. CARDIOVASCULAR: Regular rate and regular rhythm without murmurs, gallops, or rubs. RESPIRATORY: Clear to auscultation. Breath sounds equal bilaterally. No wheezes , rales, or rhonchi. GASTROINTESTINAL: Abdomen soft, non-tender, nondistended. Normal, active bowel sounds MUSCULOSKELETAL: Extremities without clubbing, cyanosis, or edema. NEURO: Alert & Oriented x4 to person, place, time, situation. Moves all ext x4 Procedures endotracheal intubation. Medications and IVs Current Medications IV Flush 2 ml 2 ml UNSCH PRN IVF FLUSH AFTER USING IV ACCESS Last administered on 09/05/16 09:52; Start 09/05/16 at 08:45; Stop 09/05/16 at 17:27; Status DC Sodium Chloride (NS 1000 ml Inj) 1,000 ml @ 999 mls/hr BOLUS ONCE IV Last administered on 09/05/16 08:51; Start 09/05/16 at 08:45; Stop 09/05/16 at 09:45; Status DC Azithromycin 500 mg 500 mg ONCE ONCE PO Last administered on 09/05/16 13:13; Start 09/05/16 at 12:45; Stop 09/05/16 at 14:34; Status DC Levofloxacin/ Dextrose (Levaquin 750 Mg Premix Inj) 150 ml @ 100 mls/hr ONCE ONCE IV Last administered on 09/05/16 14:49; Start 09/05/16 at 14:45; Stop at 16:14; Status DC Naloxone HCl (Narcan Inj) 0.4 mg STK-MED ONCE .ROUTE Last administered on 16:42; Start 09/05/16 at 15:44; Stop 09/05/16 at 15:45; Status DC Naloxone HCl (Narcan Inj) 0.4 mg STK-MED ONCE .ROUTE Last administered on 16:42; Start 09/05/16 at 15:46; Stop 09/05/16 at 15:47; Status DC Ondansetron HCl (Zofran Inj) 4 mg STK-MED ONCE .ROUTE Last administered on 16:42; Start 09/05/16 at 15:47; Stop 09/05/16 at 15:48; Status DC Etomidate (Amidate Inj) 20 mg STK-MED ONCE .ROUTE ; Start 09/05/16 at 15:50; Stop 09/05/16 at 15:51; Status DC Succinylcholine Chloride 200 mg 200 mg STK-MED ONCE .ROUTE ; Start 09/05/16 at 15 :50; Stop 09/05/16 at 15:51; Status DC Propofol (Diprivan 1000 Mg/100ml Inj) 100 ml @ 0 mls/hr TITRATE IV Last administered on 09/07/16 09:38; Start 09/05/16 at 16:00; Stop 09/07/16 at 12:51; Status DC Succinylcholine Chloride (Quelicin Inj) 100 mg ONCE ONCE IV PUSH Last administered on 09/05/16 16:44; Start 09/05/16 at 16:00; Stop 09/05/16 at 16:02; Status DC Etomidate (Amidate Inj) 20 mg ONCE ONCE IV PUSH Last administered on 09/05/16 16:44; Start 09/05/16 at 16:00; Stop 09/05/16 at 16:02; Status DC Iohexol 60 ml 60 ml STK-MED ONCE IV Last administered on 09/05/16 16:07; Start 09/05/16 at 16:07; Stop 09/05/16 at 16:08; Status DC Sodium Chloride (NS 1000 ml Inj) 1,000 ml @ 50 mls/hr Q20H IV Last administered on 09/08/16 02:54; Start 09/05/16 at 17:00; Stop 09/08/16 at 19:57; Status DC IV Flush (NS Flush) 2 ml UNSCH PRN IV FLUSH FLUSH AFTER USING IV ACCESS Last administered on 09/11/16 08:58; Start 09/05/16 at 17:00 IV Flush (NS Flush) 2 ml BID IV FLUSH Last administered on 09/12/16 08:27; Start 09/05/16 at 21:00 Acetaminophen (Tylenol) 650 mg Q6H PRN PO PAIN 1-10 AND/OR FEVER >101F Last administered on 09/08/16 17:24; Start 09/05/16 at 17:00 Famotidine (Pepcid Inj) 20 mg Q12HR IV PUSH Last administered on 09/12/16 08:32 ; Start 09/05/16 at 21:00 Ondansetron HCl (Zofran Inj) 4 mg Q6H PRN IV NAUSEA OR VOMITING; Start 09/05/16 at 17:00 Docusate Sodium (Colace Liq) 100 mg Q12H G-TUBE Last administered on 09/10/16 09:33; Start 09/05/16 at 20:00 Sennosides (Senokot) 17.2 mg Q12H PRN PO CONSTIPATION; Start 09/05/16 at 17:00 Albuterol/ Ipratropium (Duoneb Neb) 1 ampule Q6HR NEB INH Last administered on 09/08/16 08:00; Start 09/05/16 at 22:00; Stop 09/08/16 at 13:01; Status DC Albuterol/ Ipratropium (Duoneb Neb) 1 ampule Q2HR NEB PRN INH WHEEZING Last administered on 09/09/16 02:42; Start 09/05/16 at 17:00 Enoxaparin Sodium (Lovenox Inj) 40 mg Q24H SQ Last administered on 09/11/16 21: 23; Start 09/05/16 at 20:00 Miscellaneous Information 1 Q361D XX ; Start 09/05/16 at 17:00 Chlorhexidine Gluconate (Chlorhexidine 2% Cloth) Taper DAILY@04 TOP Last administered on 09/09/16 06:10; Start 09/06/16 at 04:00; Stop 09/02/17 at 03:59 Chlorhexidine Gluconate 3 pack 3 pack UNSCH PRN TOP HYGIENIC CARE; Start at 17:00 Potassium Chloride 100 ml @ 50 mls/hr Q2H PRN IV For Potassium 2.8 - 3.2 mEq/L ; Start 09/05/16 at 17:00; Stop 09/09/16 at 08:55; Status DC Potassium Chloride (KCl 20 Meq Premix Inj) 100 ml @ 50 mls/hr Q2H PRN IV For Potassium 2.8 - 3.2 mEq/L; Start 09/05/16 at 17:00; Stop 09/09/16 at 08:55; Status DC Potassium Chloride 40 meq 40 meq UNSCH PRN PO/TUBE For Potassium 3.3 - 3.5 mEq/ L Last administered on 09/07/16 09:51; Start 09/05/16 at 17:00; Stop 09/09/16 at 08:55; Status DC Potassium Chloride 100 ml @ 25 mls/hr UNSCH PRN IV For Potassium 3.3 - 3.5 mEq /L; Start 09/05/16 at 17:00; Stop 09/09/16 at 08:55; Status DC Potassium Chloride 100 ml @ 50 mls/hr Q2H PRN IV For Potassium 3.3 - 3.5 mEq/L ; Start 09/05/16 at 17:00; Stop 09/09/16 at 08:56; Status DC Magnesium Sulfate/ Sodium Chloride (Magnesium Sulfate Inj/NS Inj) 100 ml @ 50 mls/hr UNSCH PRN IV For Magnesium 0.9 - 1.1 mg/dL; Start 09/05/16 at 17:00; Stop 09/09/16 at 08:56; Status DC Magnesium Oxide 800 mg 800 mg UNSCH PRN PO For Magnesium 1.2 - 1.6 mg/dL; Start 09/05/16 at 17:00; Stop 09/09/16 at 08:57; Status DC Magnesium Sulfate/ Sodium Chloride (Magnesium Sulfate Inj/NS Inj) 100 ml @ 50 mls/hr UNSCH PRN IV For Magnesium 1.2 - 1.6 mg/dL Last administered on 08:29; Start 09/05/16 at 17:00; Stop 09/09/16 at 08:57; Status DC Potassium Phosphate 2000 mg 2,000 mg Q4H PRN PO For Phosphorus < 2.5 mg/dL Last administered on 09/06/16 08:33; Start 09/05/16 at 17:00; Stop 09/09/16 at 08: 57; Status DC Sodium Phosphate/ Sodium Chloride (Sodium Phosphate Inj/NS 250 ml Inj) 250 ml @ 42 mls/hr UNSCH PRN IV For Phosphorus < 2.5 mg/dL; Start 09/05/16 at 17:00 Potassium Chloride (KCl 40 Meq/30 ml Liq) 40 meq UNSCH PRN PO/TUBE SEE LABEL COMMENTS; Start 09/05/16 at 17:00; Stop 09/09/16 at 08:57; Status DC Potassium Phosphate 2000 mg 2,000 mg UNSCH PRN PO/TUBE SEE LABEL COMMENTS; Start 09/05/16 at 17:00; Stop 09/09/16 at 08:57; Status DC Potassium Phosphate/Sodium Chloride (Potassium Phosphate Inj/NS 250 ml Inj) 260 ml @ 42 mls/hr UNSCH PRN IV SEE LABEL COMMENTS; Start 09/05/16 at 17:00; Stop 09/09/16 at 08:57; Status DC Chlorhexidine Gluconate (Peridex 0.12% Liq) 15 ml BID@08,20 MT Last administered on 09/08/16 08:00; Start 09/05/16 at 20:00 Dextrose (D50w (Vial) Inj) 25 ml UNSCH PRN IV PUSH HYPOGLYCEMIA-SEE COMMENTS; Start 09/05/16 at 17:00 Glucagon 1 mg 1 mg UNSCH PRN OTHER HYPOGLYCEMIA-SEE COMMENTS; Start 09/05/16 at 17:00 Piperacillin Sod/ Tazobactam Sod 100 ml @ 200 mls/hr Q6H IV Last administered on 09/12/16 08:27; Start 09/05/16 at 20:00 Azithromycin 500 mg/Sodium Chloride 250 ml @ 250 mls/hr Q24H IV Last administered on 09/11/16 12:46; Start 09/06/16 at 13:00 Vancomycin HCl 1250 mg/Sodium Chloride 262.5 ml @ 250 mls/hr ONCE ONCE IV ; Start 09/05/16 at 19:00; Stop 09/05/16 at 20:02; Status UNV Pharmacy Profile Note 0 ml @ 0 mls/hr UNSCH OTHER ; Start 09/05/16 at 19:00 Vancomycin HCl/ Sodium Chloride (Vancomycin Inj/ NS 250 ml Inj) 262.5 ml @ 250 mls/hr Q8H IV Last administered on 09/06/16 22:29; Start 09/05/16 at 22:00; Stop 09/07/16 at 11:59; Status DC Miscellaneous Information SPECIFIC LAB TO BE OSWALDO... ONCE ONCE XX ; Start at 21:45; Stop 09/06/16 at 21:46; Status DC Magnesium Sulfate/ Dextrose (Magnesium Sulfate 1 Gm Premix) 100 ml @ 100 mls/ hr Q1H IV ; Start 09/06/16 at 09:00; Stop 09/06/16 at 10:59; Status DC Acetaminophen/ Hydrocodone Bitart ([place] 10-325 Mg) 1 tab Q6H PO ; Start at 11:00; Stop 09/07/16 at 11:00; Status DC Methadone HCl 45 mg 45 mg DAILY PO Last administered on 09/07/16 11:45; Start 09/07/16 at 11:00; Stop 09/07/16 at 17:33; Status DC Vancomycin HCl/ Sodium Chloride (Vancomycin Inj/ NS 250 ml Inj) 250 ml @ 250 mls/hr Q8H IV Last administered on 09/08/16 12:10; Start 09/07/16 at 13:00; Stop 09/08/16 at 14:04; Status DC Miscellaneous Information SPECIFIC LAB TO BE DRAWN:VANCOMYCIN TROUGH DATE TO... ONCE ONCE XX Last administered on 09/08/16 12:05; Start 09/08/16 at 12:45; Stop 09/08/16 at 12:46; Status DC Propofol 100 ml @ 0 mls/hr TITRATE IV ; Start 09/07/16 at 13:00; Stop 09/07/16 at 13:41; Status DC Dexmedetomidine HCl 50 ml @ 0 mls/hr TITRATE IV Last administered on 09/08/16 08:45; Start 09/07/16 at 13:45; Stop 09/08/16 at 19:57; Status DC Propofol (Diprivan 1000 Mg/100ml Inj) 100 ml @ 0 mls/hr TITRATE IV ; Start at 13:45; Stop 09/08/16 at 19:57; Status DC Methadone HCl (Methadone Liq) 20 mg DAILY PO Last administered on 09/12/16 08: 32; Start 09/08/16 at 09:00 Lorazepam (Ativan Inj) 1 mg Q4H PRN IVP ANXIETY; Start 09/08/16 at 11:45; Stop 09/08/16 at 11:48; Status DC Acetaminophen (Ofirmev Inj) 1,000 mg Q6H PRN IV PAIN SCALE 7 TO 10; Start at 11:45; Stop 09/08/16 at 11:48; Status DC Albuterol/ Ipratropium 1 ampule 1 ampule TID NEB INH Last administered on 08:23; Start 09/08/16 at 14:00 Vancomycin HCl/ Sodium Chloride (Vancomycin Inj/ NS 250 ml Inj) 262.5 ml @ 250 mls/hr Q12H IV Last administered on 09/10/16 14:00; Start 09/09/16 at 01:00; Stop 09/10/16 at 18:00; Status DC Miscellaneous Information SPECIFIC LAB TO BE DRAWN:VANCOMY... ONCE ONCE XX ; Start 09/09/16 at 12:45; Stop 09/09/16 at 12:45; Status DC Miscellaneous Information SPECIFIC LAB TO BE DRAWN:VANCO TROUGH DATE TO BE DR..Hardy ONCE ONCE XX ; Start 09/10/16 at 12:45; Stop 09/10/16 at 12:46; Status DC Clonidine 0.1 mg 0.1 mg ONCE ONCE PO Last administered on 09/09/16 20:00; Start 09/09/16 at 20:00; Stop 09/09/16 at 20:01; Status DC Vancomycin HCl/ Sodium Chloride (Vancomycin Inj/ NS 500 ml Inj) 515 ml @ 250 mls/hr Q12H IV Last administered on 09/12/16 02:33; Start 09/11/16 at 02:00 Miscellaneous Information SPECIFIC LAB TO BE DRAWN:VANCOMYCIN TROUGH DATE TO... ONCE ONCE XX ; Start 09/12/16 at 13:45; Stop 09/12/16 at 13:46 Clonidine (Catapres) 0.1 mg HS PO Last administered on 09/11/16t 21:23; Start at 21:00 Enalaprilat (Vasotec Inj) 1.25 mg Q8H PRN IV PUSH SBP> OR = 180, DBP> OR = 100 ; Start 09/11/16 at 08:30 Albuterol Sulfate (Albuterol Concentrated Neb) 2.5 mg CADMIUM PLATER NEB ; Start at 16:15; Stop 09/15/16 at 16:14 Lidocaine HCl (Lidocaine Pf 4% Neb) 3 ml CADMIUM PLATER NEB ; Start 09/11/16 at 16:15; Stop 09/15/16 at 16:14 A/P Assessment and Plan A/P Toxic Encephalopathy-improved. Suicidal ideations Multiple suicide attempts Chronic Pain Patient's prescription medications include Seroquel, symptomatology suspicious for overdose-confirmed by patient and family postextubation Patient previously on methadone 45 mg daily complaining of pain methadone reinitiated a decreased dose 20 mg daily awaiting psych evaluation ( psych reconsulted) ; spoke with the psych department again today to have a f/u on pending consult. Acute hypoxemic respiratory failure- resolved Multilobular Pneumonia CXR 3/2-questionable infiltrate right mid lung, possible pneumonia CT chest 3/2-complete left lower lobe opacification, right upper lobe possible pneumonia for bronchoscopy today. Empiric Abx for now continue neb treatment Sinus tachycardia- improved Community-acquired pneumonia Mild leukocytosis-resolved From bronchoscopy obtain BAL sent for culture Continue to monitor CBC Empiric antibiotics Vanc , Zosyn and Azithromycin Hypertension on clonidine at home; resumed. Prophylaxis: GI Prophylaxis Pepcid DVT Prophylaxis -- SCDs Lovenox 40 mg /day Discharge Planning possible dc home- pending bronchoscopy and psych evaluation. see med list. f/u; pcp , pulmonary, psych and methadone clinic. d/w the patient and RN. time spent 32 min. Audrey Luevano MD Sep 12, 2016 09:09
--- NOTE | 2016-09-12 09:11 | HHI.DCPOC ---
Discharge Care Plan Diagnosis: (1) Pneumonia (2) Methadone dependence Your Health Problems Are: Shortness of Breath Goals to Promote Your Health * To prevent worsening of your condition and complications * To maintain your health at the optimal level Directions to Meet Your Goals Take your medications as prescribed Follow your dietary instruction Follow activity as directed Keep your appointments as scheduled Take your immunizations and boosters as scheduled If your symptoms worsen call your PCP, if no PCP go to Urgent Care Center or Emergency Room Smoking is Dangerous to Your Health. Avoid second hand smoke Call the 24-hour hour crisis hotline for domestic abuse at Audrey Luevano MD Sep 12, 2016 09:11
--- NOTE | 2016-09-12 09:12 | HHI.DS ---
Discharge Summary Admission Date Sep 05, 2016 at 16:10 Discharge Date: Sep 12, 2016 Admitting Diagnosis Vent dependent respiratory failure, Drug overdose (1) Pneumonia ICD Code: J18.9 Diagnosis: Principal Procedures endotracheal intubation. bronchoscopy Brief History - From Admission This is a 35-year-old male presented to the ED approximately 7 hours ago for evaluation of lethargy. As per history, patient was found in the bathroom of the methadone clinic sleeping. Patient did not receive his daily dose of methadone today. The patient denies using any drugs or alcohol last night. Patient reports that he is just tired as he did not sleep last night at all. Patient denies suicidal or homicidal ideations. The patient denied any shortness of breath or chest pain. Over the last 7 hours while in the ED the patient became progressively more lethargic with subsequent respiratory depression, with a respiratory rate of 4 and required emergent intubation, and sinus tachycardia. U tox screen was performed in the ED, which revealed positive for benzodiazepines. A phone call was received by Dr. Guzman by a concerned friend, that the patient was suicidal and may have ingested a substance, of note the patent's prescribed Seroquel. Imaging studies were performed CT head no acute abnormality . CT chest and abdomen pending. Expanded U tox was obtained results are pending. The patient's only active medication was noted to be Seroquel. Imaging studies revealed infiltrate right midline the patient received left level levofloxacin, azithromycin and 2 L of normal saline in the ED. Critical care medicine is consulted for treatment and management. History PFSH Past Medical History Bipolar Disorder: Yes Anxiety: Yes Depression: Yes Diminished Hearing: No Inguinal Hernia: Yes Musculoskeletal: Yes (CHRONIC NECK AND BACK ) Psychiatric: Yes Immunizations Current: No Past Surgical History Abdominal Surgery: Yes (HERNIA REPAIR ) Social History Alcohol Use: No Tobacco Use: Yes Substance Use: Yes (OPIATES , ON METHADONE ) Allergies-Medications Allergies-Medications (Allergen,Severity, Reaction): Coded Allergies: No Known Allergies (Unverified , 09/05/16) Reported Meds & Prescriptions Reported Meds & Active Scripts Active Levaquin (Levofloxacin) 750 Mg Tab 750 Mg PO DAILY 7 Days Reported Methadone (Methadone HCl) 40 Mg Tab 45 Mg PO DAILY Seroquel (Quetiapine Fumarate) 300 Mg Tab 300 Mg PO DAILY ROS Review of Systems General / Constitutional: No: Fever Eyes: No: Visual changes HENT: No: Headaches Cardiovascular: No: Chest Pain or Discomfort Respiratory: No: Shortness of Breath Gastrointestinal: No: Abdominal Pain Genitourinary: No: Dysuria Musculoskeletal: No: Pain Skin: No Rash Neurologic: No: Weakness Psychiatric: No: Depression Endocrine: No: Polydipsia Hematologic/Lymphatic: No: Easy Bruising CBC/BMP: 09/08/16 0920 09/12/16 0559 Significant Findings Laboratory Tests Test 09/10/16 09/11/16 09/12/16 06:19 04:35 05:59 Estimat Glomerular Filtration 73 ML/MIN (>89) 72 ML/MIN (>89) 71 ML/MIN (>89) Rate Imaging Last Impressions Chest X-Ray 09/08/16 0000 Signed Impressions: Service Date/Time: Thursday, September 08, 2016 06:02 - CONCLUSION: Stable chest appearance Terrance Wood MD CT Angiography 09/05/16 1436 Signed Impressions: Service Date/Time: September 16:08 - CONCLUSION: Significant infiltrate with near complete opacification of the left lower lobe. Both the left upper lobe and left lower lobe bronchi are markedly narrowed. Bronchoscopy is recommended to evaluate the left bronchi. Airspace of the right upper lobe possible pneumonia. No evidence of pulmonary emboli. Neal Mehta MD Head CT 09/05/16 0000 Signed Impressions: Service Date/Time: September 11:10 - CONCLUSION: No acute intracranial disease. Kike Serrano MD Abdomen/Pelvis CT 09/05/16 0000 Signed Impressions: Service Date/Time: September 16:08 - CONCLUSION: Normal examination of the abdomen or pelvis. Dense infiltrate left lower lobe. Erosive changes both SI joints. Neal Mehta MD PE at Discharge GENERAL: This is a well-nourished, well-developed patient, in no apparent distress. CARDIOVASCULAR: Regular rate and regular rhythm without murmurs, gallops, or rubs. RESPIRATORY: Clear to auscultation. Breath sounds equal bilaterally. No wheezes , rales, or rhonchi. GASTROINTESTINAL: Abdomen soft, non-tender, nondistended. Normal, active bowel sounds MUSCULOSKELETAL: Extremities without clubbing, cyanosis, or edema. NEURO: Alert & Oriented x4 to person, place, time, situation. Moves all ext x4 Hospital Course Toxic Encephalopathy-improved. Suicidal ideations Multiple suicide attempts Chronic Pain Patient's prescription medications include Seroquel, symptomatology suspicious for overdose-confirmed by patient and family postextubation Patient previously on methadone 45 mg daily complaining of pain methadone reinitiated a decreased dose 20 mg daily awaiting psych evaluation ( psych reconsulted) ; spoke with the psych department again today to have a f/u on pending consult. Acute hypoxemic respiratory failure- resolved Multilobular Pneumonia CXR 3/2-questionable infiltrate right mid lung, possible pneumonia CT chest 3/2-complete left lower lobe opacification, right upper lobe possible pneumonia for bronchoscopy today. Empiric Abx for now continue neb treatment Sinus tachycardia- improved Community-acquired pneumonia Mild leukocytosis-resolved From bronchoscopy obtain BAL sent for culture Continue to monitor CBC Empiric antibiotics Vanc , Zosyn and Azithromycin Hypertension on clonidine at home; resumed. Prophylaxis: GI Prophylaxis Pepcid DVT Prophylaxis -- SCDs Lovenox 40 mg /day Pt Condition on Discharge: Good Discharge Disposition: Discharge Home Discharge Time: > 30 minutes Discharge Instructions DIET: Follow Instructions for: Heart Healthy Diet Activities you can perform: Regular-No Restrictions Follow up Referrals: PCP Follow-up Psychiatry Adult Pulmonology New Medications: Levofloxacin (Levaquin) 500 Mg Tab 500 MG PO DAILY Infection Days 7 Ref 0 TAB Continued Medications: Methadone (Methadone) 40 Mg Tab 45 MG PO DAILY Ref 0 TAB Quetiapine (Seroquel) 300 Mg Tab 300 MG PO DAILY #30 Ref 0 TAB Discontinued Medications: Levofloxacin (Levaquin) 750 Mg Tab 750 MG PO DAILY Infection Days 7 Ref 0 TAB Audrey Luevano MD Sep 12, 2016 09:11
--- NOTE | 2016-09-12 09:49 | HHI.PYPN ---
Subjective Remarks Late entry, patient was seen 09/12/2016 11:30 am Patient was revisited today for psychiatric reevaluation, patient was seen by me initially in the ICU and a full psychiatric assessment was done at that moment on 09/09/2016. Today patient is found laying in his bed, he was calm, cooperative and very pleasant, in a very good mood, patient states that he feels much better now, he denies depressive symptoms, he denies anxiety, he denies perceptual disturbances, no caitlyn or psychosis are observed at this moment, no reported agitation or aggressive behavior, as per nurses. He denies suicidal or homicidal ideation, he denies visual and auditory hallucinations. We addressed again today the reason of his recent overdose with methadone and benzodiazepines and extensive psychoeducation about the importance of taking medications as prescribed, compliant with methadone program, avoiding abuse was , given to the patient. Also supportive psychotherapy and motivation were provided. Review of Systems Other No somatic complaints Objective Alert: Yes [place]: Person, Place, Date, Situation Mood: Depressed Affect: Euthymic Memory Intact: Immediate, Recent, Remote Hallucinations: Other (he denies) Delusions: No Delusion Type: Other (none elicited) Suicidal: Ideation (he denies) Homicidal: Ideation (he denies) Insight/Judgement fair Labs Test 09/12/16 05:59 Creatinine 1.16 MG/DL Estimat Glomerular Filtration 71 ML/MIN Rate Vitals/IOs Vital Signs Date Time Temp Pulse Resp B/P Pulse Ox O2 Delivery O2 Flow Rate FiO2 09/12/16 08:00 97.6 74 20 159/97 100 09/11/16 21:00 21 09/08/16 09:04 Nasal Cannula 2 Intake and Output 09/11/16 09/11/16 09/12/16 08:00 16:00 00:00 Intake Total 240 ml 1452 ml Output Total 2500 ml 1000 ml Balance -2260 ml 452 ml Assessment & Plan Problem List: (1) Methadone dependence Assessment & Plan: At this moment the patient does not present any evidence of objective or subjective symptomatology of depression, anxiety, caitlyn or perceptual disturbances. His recent overdose with methadone seems to be accidental and a consequence of restarting his mental and in a very high-dose after not using methadone for 90 days while the patient was in [facility]. Patient also mixed the methadone will benzodiazepines. I had a long conversation with his mother during the initial psychiatric assessment and she feels safe taking the patient back home and she clarified that at any moment she thought the patient tried to kill himself. Extensive support, motivation psycho education was given to the patient. He does not need any immediate psychiatric intervention, he is psychiatrically stable to be discharged back home and continue his methadone program. ICD Code: F11.20 Assessment & Plan Estimated LOS: days Justification for Cont. Inpt. Patient does not meet criteria for psychiatric admission at this moment Golden Ray MD Sep 12, 2016 09:49
[2016-09-12] MEDS ORDERED: PROPOFOL 200 MG/20 ML AMP IV ONE (12:00)
[2016-09-12] MEDS ORDERED: PHARMACY ORDERED LAB XX ONE (13:45)
[2016-09-12] MEDS: AZITHROMYCIN INJ 500 MG in SODIUM CHLOR 0.9% 250 ML INJ 250 ML IV SCH (14:14)
[2016-09-12] MEDS ORDERED: EPINEPHrine HCL (1:1000) 1 MG/ML VIAL ONE ×2 (14:28→14:34)
[2016-09-12] MEDS ORDERED: LIDOCAINE HCL 2% 50 ML VIAL ONE ×2 (14:28→14:34)
[2016-09-12] MEDS ORDERED: SODIUM CHLORIDE 0.9% 20 ML VIAL ONE (14:34)
[2016-09-12] MEDS ORDERED: MIDAZOLAM HCL 2 MG/2 ML VIAL ONE (15:56)
[2016-09-12] MEDS ORDERED: LIDOCAINE VISCOUS 2% SOLN 15 ML UDC ONE (16:17)
[2016-09-12] MEDS ORDERED: fentaNYL CITRATE 250 MCG/5 ML AMP ONE (16:49)
--- NOTE | 2016-09-12 17:01 | HHI.PR ---
Subjective Remarks ALERT UP IN CHAIR NO SOB Objective Vital Signs Date Time Temp Pulse Resp B/P Pulse Ox O2 Delivery O2 Flow Rate FiO2 09/12/16 15:22 97 21 09/12/16 15:00 69 09/12/16 13:16 97 21 09/12/16 12:00 97.9 65 20 141/78 100 09/12/16 11:00 63 09/12/16 08:00 97.6 74 20 159/97 100 09/12/16 07:00 58 09/12/16 05:14 62 09/12/16 04:29 64 09/12/16 04:21 97.7 68 20 139/85 100 09/12/16 03:00 57 09/12/16 02:00 64 09/12/16 01:00 56 09/12/16 00:00 97.9 81 18 146/82 97 09/12/16 00:00 76 09/11/16 23:00 74 09/11/16 22:00 74 09/11/16 21:00 99 21 09/11/16 21:00 80 09/11/16 20:00 98.8 85 20 164/99 97 09/11/16 20:00 82 09/11/16 19:00 84 I/O 09/11/16 09/11/16 09/11/16 09/12/16 09/12/16 09/12/16 07:00 15:00 23:00 07:00 15:00 23:00 Intake Total 240 ml 1452 ml 1290 ml Output Total 2500 ml 1000 ml 450 ml Balance -2260 ml 452 ml 840 ml Intake Oral 240 ml 480 ml 840 ml IV Total 972 ml 450 ml Output Urine Total 2500 ml 1000 ml 450 ml # Bowel Movements 1 Result Diagram: 09/08/16 0920 09/12/16 0559 Objective Remarks GENERAL: SKIN: Warm and dry. HEAD: Atraumatic. Normocephalic. EYES: Pupils equal and round. No scleral icterus. No injection or drainage. ENT: No nasal bleeding or discharge. Mucous membranes pink and moist. NECK: Trachea midline. No JVD. CARDIOVASCULAR: Regular rate and rhythm. RESPIRATORY: No accessory muscle use. Clear to auscultation. Breath sounds equal bilaterally. GASTROINTESTINAL: Abdomen soft, non-tender, nondistended. Hepatic and splenic margins not palpable. MUSCULOSKELETAL: Extremities without clubbing, cyanosis, or edema. No obvious deformities. NEUROLOGICAL: Awake and alert. No obvious cranial nerve deficits. Motor grossly within normal limits. Five out of 5 muscle strength in the arms and legs. Normal speech. PSYCHIATRIC: Appropriate mood and affect; insight and judgment normal. Assessment and Plan Assessment and Plan REPIRATORY FAIILURE , RESOLVED ? NARIOWED BRONCHI PLAN INCREASE ACTIVITY BRONCHOSCOPY tomorrow Rose Rose MD Sep 12, 2016 17:01
[2016-09-12] MEDS ORDERED: DO NOT ADM ANY ANTICOAGULANT DRUGS XX PRN (17:30)
[2016-09-12] MEDS: ENOXAPARIN SODIUM 40 MG/0.4 ML SYRINGE SQ SCH (21:07)
[2016-09-12] MEDS: cloNIDine HCL 0.1 MG TAB PO SCH (21:07)
[2016-09-13] VITALS (22 sets, daily range): BP systolic 102–157; BP diastolic 57–94; PULSE 56–81; RESP 16–18; TEMP 97.7–98; O2SAT 93–100
[2016-09-13] MEDS: PIPERACIL-TAZO 4.5 GM PREMIX 100 ML IV SCH ×4 (03:05→20:38)
[2016-09-13] MEDS: VANCOMYCIN INJ 1,500 MG in SODIUM CHLORID 0.9% 500 ML INJ 500 ML IV SCH ×2 (03:05→14:00)
[2016-09-13] MEDS: CHLORHEXIDINE GLUCONATE 2 % 1 PACK (2 CLOTHS) TOP SCH (04:00)
[2016-09-13] MEDS: DOCUSATE SODIUM 100 MG/10 ML UDC G-TUBE SCH ×2 (08:31→20:00)
[2016-09-13] MEDS: FAMOTIDINE 20 MG/2 ML VIAL IV PUSH SCH (08:34)
[2016-09-13] MEDS: SODIUM CHLORIDE 0.9% FLUSH 5 ML FLUSH IV FLUSH SCH ×2 (08:34→20:38)
[2016-09-13] MEDS: METHADONE HCL 10 MG/10 ML ORAL SOLUTION PO SCH (08:36)
--- NOTE | 2016-09-13 08:39 | HHI.PR ---
Subjective Remarks resting comfortably with no acute distress. no fever. still with some productive cough of yellowish sputum. d/w the RN and no acute issues over night. Objective Vitals Vital Signs Date Time Temp Pulse Resp B/P Pulse Ox O2 Delivery O2 Flow Rate FiO2 09/13/16 06:12 58 09/13/16 05:00 56 09/13/16 04:00 98.0 72 102/57 96 09/13/16 04:00 60 09/13/16 03:00 64 09/13/16 02:00 64 09/13/16 01:00 66 09/13/16 00:50 97.9 75 129/68 96 09/13/16 00:00 76 09/12/16 23:00 72 09/12/16 22:00 66 09/12/16 21:00 78 09/12/16 20:00 78 09/12/16 20:00 97.7 80 151/94 100 09/12/16 19:00 78 09/12/16 17:30 97.9 77 20 153/94 99 09/12/16 17:15 74 16 136/82 99 Nasal Cannula 2 09/12/16 17:00 70 16 144/87 99 Nasal Cannula 2 09/12/16 16:45 98.9 90 16 119/80 99 Nasal Cannula 2 09/12/16 15:22 97 21 09/12/16 15:00 69 09/12/16 13:16 97 21 09/12/16 12:00 97.9 65 20 141/78 100 09/12/16 11:00 63 I/O 09/12/16 09/12/16 09/12/16 09/13/16 09/13/16 09/13/16 07:00 15:00 23:00 07:00 15:00 23:00 Intake Total 1290 ml 1340 ml 240 ml Output Total 450 ml Balance 840 ml 1340 ml 240 ml Intake Oral 840 ml 240 ml 240 ml IV Total 450 ml 1100 ml Output Urine Total 450 ml # Voids 4 3 # Bowel Movements 0 Result Diagram: 09/12/16 0559 Imaging Last Impressions Chest X-Ray 09/08/16 0000 Signed Impressions: Service Date/Time: Thursday, September 08, 2016 06:02 - CONCLUSION: Stable chest appearance Terrance Wood MD CT Angiography 09/05/16 1436 Signed Impressions: Service Date/Time: September 16:08 - CONCLUSION: Significant infiltrate with near complete opacification of the left lower lobe. Both the left upper lobe and left lower lobe bronchi are markedly narrowed. Bronchoscopy is recommended to evaluate the left bronchi. Airspace of the right upper lobe possible pneumonia. No evidence of pulmonary emboli. Neal Mehta MD Head CT 09/05/16 0000 Signed Impressions: Service Date/Time: September 11:10 - CONCLUSION: No acute intracranial disease. Kike Serrano MD Abdomen/Pelvis CT 09/05/16 0000 Signed Impressions: Service Date/Time: September 16:08 - CONCLUSION: Normal examination of the abdomen or pelvis. Dense infiltrate left lower lobe. Erosive changes both SI joints. Neal Mehta MD Objective Remarks GENERAL: This is a well-nourished, well-developed patient, in no apparent distress. CARDIOVASCULAR: Regular rate and regular rhythm without murmurs, gallops, or rubs. RESPIRATORY: Clear to auscultation. Breath sounds equal bilaterally. No wheezes , rales, or rhonchi. GASTROINTESTINAL: Abdomen soft, non-tender, nondistended. Normal, active bowel sounds MUSCULOSKELETAL: Extremities without clubbing, cyanosis, or edema. NEURO: Alert & Oriented x4 to person, place, time, situation. Moves all ext x4 Procedures endotracheal intubation. bronchoscopy Medications and IVs Current Medications IV Flush 2 ml 2 ml UNSCH PRN IVF FLUSH AFTER USING IV ACCESS Last administered on 09/05/16 09:52; Start 09/05/16 at 08:45; Stop 09/05/16 at 17:27; Status DC Sodium Chloride (NS 1000 ml Inj) 1,000 ml @ 999 mls/hr BOLUS ONCE IV Last administered on 09/05/16 08:51; Start 09/05/16 at 08:45; Stop 09/05/16 at 09:45; Status DC Azithromycin 500 mg 500 mg ONCE ONCE PO Last administered on 09/05/16 13:13; Start 09/05/16 at 12:45; Stop 09/05/16 at 14:34; Status DC Levofloxacin/ Dextrose (Levaquin 750 Mg Premix Inj) 150 ml @ 100 mls/hr ONCE ONCE IV Last administered on 09/05/16 14:49; Start 09/05/16 at 14:45; Stop at 16:14; Status DC Naloxone HCl (Narcan Inj) 0.4 mg STK-MED ONCE .ROUTE Last administered on 16:42; Start 09/05/16 at 15:44; Stop 09/05/16 at 15:45; Status DC Naloxone HCl (Narcan Inj) 0.4 mg STK-MED ONCE .ROUTE Last administered on 16:42; Start 09/05/16 at 15:46; Stop 09/05/16 at 15:47; Status DC Ondansetron HCl (Zofran Inj) 4 mg STK-MED ONCE .ROUTE Last administered on 16:42; Start 09/05/16 at 15:47; Stop 09/05/16 at 15:48; Status DC Etomidate (Amidate Inj) 20 mg STK-MED ONCE .ROUTE ; Start 09/05/16 at 15:50; Stop 09/05/16 at 15:51; Status DC Succinylcholine Chloride 200 mg 200 mg STK-MED ONCE .ROUTE ; Start 09/05/16 at 15 :50; Stop 09/05/16 at 15:51; Status DC Propofol (Diprivan 1000 Mg/100ml Inj) 100 ml @ 0 mls/hr TITRATE IV Last administered on 09/07/16 09:38; Start 09/05/16 at 16:00; Stop 09/07/16 at 12:51; Status DC Succinylcholine Chloride (Quelicin Inj) 100 mg ONCE ONCE IV PUSH Last administered on 09/05/16 16:44; Start 09/05/16 at 16:00; Stop 09/05/16 at 16:02; Status DC Etomidate (Amidate Inj) 20 mg ONCE ONCE IV PUSH Last administered on 09/05/16 16:44; Start 09/05/16 at 16:00; Stop 09/05/16 at 16:02; Status DC Iohexol 60 ml 60 ml STK-MED ONCE IV Last administered on 09/05/16 16:07; Start 09/05/16 at 16:07; Stop 09/05/16 at 16:08; Status DC Sodium Chloride (NS 1000 ml Inj) 1,000 ml @ 50 mls/hr Q20H IV Last administered on 09/08/16 02:54; Start 09/05/16 at 17:00; Stop 09/08/16 at 19:57; Status DC IV Flush (NS Flush) 2 ml UNSCH PRN IV FLUSH FLUSH AFTER USING IV ACCESS Last administered on 09/11/16 08:58; Start 09/05/16 at 17:00 IV Flush (NS Flush) 2 ml BID IV FLUSH Last administered on 09/12/16 21:00; Start 09/05/16 at 21:00 Acetaminophen (Tylenol) 650 mg Q6H PRN PO PAIN 1-10 AND/OR FEVER >101F Last administered on 09/08/16 17:24; Start 09/05/16 at 17:00 Famotidine (Pepcid Inj) 20 mg Q12HR IV PUSH Last administered on 09/12/16 21:28 ; Start 09/05/16 at 21:00 Ondansetron HCl (Zofran Inj) 4 mg Q6H PRN IV NAUSEA OR VOMITING; Start 09/05/16 at 17:00 Docusate Sodium (Colace Liq) 100 mg Q12H G-TUBE Last administered on 09/10/16 09:33; Start 09/05/16 at 20:00 Sennosides (Senokot) 17.2 mg Q12H PRN PO CONSTIPATION; Start 09/05/16 at 17:00 Albuterol/ Ipratropium (Duoneb Neb) 1 ampule Q6HR NEB INH Last administered on 09/08/16 08:00; Start 09/05/16 at 22:00; Stop 09/08/16 at 13:01; Status DC Albuterol/ Ipratropium (Duoneb Neb) 1 ampule Q2HR NEB PRN INH WHEEZING Last administered on 09/09/16 02:42; Start 09/05/16 at 17:00 Enoxaparin Sodium (Lovenox Inj) 40 mg Q24H SQ Last administered on 09/12/16 21: 07; Start 09/05/16 at 20:00 Miscellaneous Information 1 Q361D XX ; Start 09/05/16 at 17:00 Chlorhexidine Gluconate (Chlorhexidine 2% Cloth) Taper DAILY@04 TOP Last administered on 09/09/16 06:10; Start 09/06/16 at 04:00; Stop 09/02/17 at 03:59 Chlorhexidine Gluconate 3 pack 3 pack UNSCH PRN TOP HYGIENIC CARE; Start at 17:00 Potassium Chloride 100 ml @ 50 mls/hr Q2H PRN IV For Potassium 2.8 - 3.2 mEq/L ; Start 09/05/16 at 17:00; Stop 09/09/16 at 08:55; Status DC Potassium Chloride (KCl 20 Meq Premix Inj) 100 ml @ 50 mls/hr Q2H PRN IV For Potassium 2.8 - 3.2 mEq/L; Start 09/05/16 at 17:00; Stop 09/09/16 at 08:55; Status DC Potassium Chloride 40 meq 40 meq UNSCH PRN PO/TUBE For Potassium 3.3 - 3.5 mEq/ L Last administered on 09/07/16 09:51; Start 09/05/16 at 17:00; Stop 09/09/16 at 08:55; Status DC Potassium Chloride 100 ml @ 25 mls/hr UNSCH PRN IV For Potassium 3.3 - 3.5 mEq /L; Start 09/05/16 at 17:00; Stop 09/09/16 at 08:55; Status DC Potassium Chloride 100 ml @ 50 mls/hr Q2H PRN IV For Potassium 3.3 - 3.5 mEq/L ; Start 09/05/16 at 17:00; Stop 09/09/16 at 08:56; Status DC Magnesium Sulfate/ Sodium Chloride (Magnesium Sulfate Inj/NS Inj) 100 ml @ 50 mls/hr UNSCH PRN IV For Magnesium 0.9 - 1.1 mg/dL; Start 09/05/16 at 17:00; Stop 09/09/16 at 08:56; Status DC Magnesium Oxide 800 mg 800 mg UNSCH PRN PO For Magnesium 1.2 - 1.6 mg/dL; Start 09/05/16 at 17:00; Stop 09/09/16 at 08:57; Status DC Magnesium Sulfate/ Sodium Chloride (Magnesium Sulfate Inj/NS Inj) 100 ml @ 50 mls/hr UNSCH PRN IV For Magnesium 1.2 - 1.6 mg/dL Last administered on 08:29; Start 09/05/16 at 17:00; Stop 09/09/16 at 08:57; Status DC Potassium Phosphate 2000 mg 2,000 mg Q4H PRN PO For Phosphorus < 2.5 mg/dL Last administered on 09/06/16 08:33; Start 09/05/16 at 17:00; Stop 09/09/16 at 08: 57; Status DC Sodium Phosphate/ Sodium Chloride (Sodium Phosphate Inj/NS 250 ml Inj) 250 ml @ 42 mls/hr UNSCH PRN IV For Phosphorus < 2.5 mg/dL; Start 09/05/16 at 17:00 Potassium Chloride (KCl 40 Meq/30 ml Liq) 40 meq UNSCH PRN PO/TUBE SEE LABEL COMMENTS; Start 09/05/16 at 17:00; Stop 09/09/16 at 08:57; Status DC Potassium Phosphate 2000 mg 2,000 mg UNSCH PRN PO/TUBE SEE LABEL COMMENTS; Start 09/05/16 at 17:00; Stop 09/09/16 at 08:57; Status DC Potassium Phosphate/Sodium Chloride (Potassium Phosphate Inj/NS 250 ml Inj) 260 ml @ 42 mls/hr UNSCH PRN IV SEE LABEL COMMENTS; Start 09/05/16 at 17:00; Stop 09/09/16 at 08:57; Status DC Chlorhexidine Gluconate (Peridex 0.12% Liq) 15 ml BID@08,20 MT Last administered on 09/08/16 08:00; Start 09/05/16 at 20:00 Dextrose (D50w (Vial) Inj) 25 ml UNSCH PRN IV PUSH HYPOGLYCEMIA-SEE COMMENTS; Start 09/05/16 at 17:00 Glucagon 1 mg 1 mg UNSCH PRN OTHER HYPOGLYCEMIA-SEE COMMENTS; Start 09/05/16 at 17:00 Piperacillin Sod/ Tazobactam Sod 100 ml @ 200 mls/hr Q6H IV Last administered on 09/13/16 03:05; Start 09/05/16 at 20:00 Azithromycin 500 mg/Sodium Chloride 250 ml @ 250 mls/hr Q24H IV Last administered on 09/12/16 14:14; Start 09/06/16 at 13:00 Vancomycin HCl 1250 mg/Sodium Chloride 262.5 ml @ 250 mls/hr ONCE ONCE IV ; Start 09/05/16 at 19:00; Stop 09/05/16 at 20:02; Status UNV Pharmacy Profile Note 0 ml @ 0 mls/hr UNSCH OTHER ; Start 09/05/16 at 19:00 Vancomycin HCl/ Sodium Chloride (Vancomycin Inj/ NS 250 ml Inj) 262.5 ml @ 250 mls/hr Q8H IV Last administered on 09/06/16 22:29; Start 09/05/16 at 22:00; Stop 09/07/16 at 11:59; Status DC Miscellaneous Information SPECIFIC LAB TO BE OSWALDO... ONCE ONCE XX ; Start at 21:45; Stop 09/06/16 at 21:46; Status DC Magnesium Sulfate/ Dextrose (Magnesium Sulfate 1 Gm Premix) 100 ml @ 100 mls/ hr Q1H IV ; Start 09/06/16 at 09:00; Stop 09/06/16 at 10:59; Status DC Acetaminophen/ Hydrocodone Bitart ([place] 10-325 Mg) 1 tab Q6H PO ; Start at 11:00; Stop 09/07/16 at 11:00; Status DC Methadone HCl 45 mg 45 mg DAILY PO Last administered on 09/07/16 11:45; Start 09/07/16 at 11:00; Stop 09/07/16 at 17:33; Status DC Vancomycin HCl/ Sodium Chloride (Vancomycin Inj/ NS 250 ml Inj) 250 ml @ 250 mls/hr Q8H IV Last administered on 09/08/16 12:10; Start 09/07/16 at 13:00; Stop 09/08/16 at 14:04; Status DC Miscellaneous Information SPECIFIC LAB TO BE DRAWN:VANCOMYCIN TROUGH DATE TO... ONCE ONCE XX Last administered on 09/08/16 12:05; Start 09/08/16 at 12:45; Stop 09/08/16 at 12:46; Status DC Propofol 100 ml @ 0 mls/hr TITRATE IV ; Start 09/07/16 at 13:00; Stop 09/07/16 at 13:41; Status DC Dexmedetomidine HCl 50 ml @ 0 mls/hr TITRATE IV Last administered on 09/08/16 08:45; Start 09/07/16 at 13:45; Stop 09/08/16 at 19:57; Status DC Propofol (Diprivan 1000 Mg/100ml Inj) 100 ml @ 0 mls/hr TITRATE IV ; Start at 13:45; Stop 09/08/16 at 19:57; Status DC Methadone HCl (Methadone Liq) 20 mg DAILY PO Last administered on 09/12/16 08: 32; Start 09/08/16 at 09:00 Lorazepam (Ativan Inj) 1 mg Q4H PRN IVP ANXIETY; Start 09/08/16 at 11:45; Stop 09/08/16 at 11:48; Status DC Acetaminophen (Ofirmev Inj) 1,000 mg Q6H PRN IV PAIN SCALE 7 TO 10; Start at 11:45; Stop 09/08/16 at 11:48; Status DC Albuterol/ Ipratropium 1 ampule 1 ampule TID NEB INH Last administered on 13:23; Start 09/08/16 at 14:00; Stop 09/12/16 at 14:00; Status DC Vancomycin HCl/ Sodium Chloride (Vancomycin Inj/ NS 250 ml Inj) 262.5 ml @ 250 mls/hr Q12H IV Last administered on 09/10/16 14:00; Start 09/09/16 at 01:00; Stop 09/10/16 at 18:00; Status DC Miscellaneous Information SPECIFIC LAB TO BE DRAWN:VANCOMY... ONCE ONCE XX ; Start 09/09/16 at 12:45; Stop 09/09/16 at 12:45; Status DC Miscellaneous Information SPECIFIC LAB TO BE DRAWN:VANCO TROUGH DATE TO BE DR... ONCE ONCE XX ; Start 09/10/16 at 12:45; Stop 09/10/16 at 12:46; Status DC Clonidine 0.1 mg 0.1 mg ONCE ONCE PO Last administered on 09/09/16 20:00; Start 09/09/16 at 20:00; Stop 09/09/16 at 20:01; Status DC Vancomycin HCl/ Sodium Chloride (Vancomycin Inj/ NS 500 ml Inj) 515 ml @ 250 mls/hr Q12H IV Last administered on 09/13/16 03:05; Start 09/11/16 at 02:00 Miscellaneous Information SPECIFIC LAB TO BE DRAWN:VANCOMYCIN TROUGH DATE TO... ONCE ONCE XX ; Start 09/12/16 at 13:45; Stop 09/12/16 at 13:46; Status DC Clonidine (Catapres) 0.1 mg HS PO Last administered on 09/12/16 21:07; Start at 21:00 Enalaprilat (Vasotec Inj) 1.25 mg Q8H PRN IV PUSH SBP> OR = 180, DBP> OR = 100 ; Start 09/11/16 at 08:30 Albuterol Sulfate (Albuterol Concentrated Neb) 2.5 mg SUBSTATION MECHANIC NEB Last administered on 09/12/16 15:22; Start 09/11/16 at 16:15; Stop 09/15/16 at 16:14 Lidocaine HCl (Lidocaine Pf 4% Neb) 3 ml SUBSTATION MECHANIC NEB Last administered on 15:23; Start 09/11/16 at 16:15; Stop 09/15/16 at 16:14 Lidocaine HCl (Xylocaine 2% Inj) 50 ml STK-MED ONCE .ROUTE ; Start 09/12/16 at 14 :28; Stop 09/12/16 at 14:29; Status DC Epinephrine HCl (Adrenalin (1:1000) Inj) 1 mg STK-MED ONCE .ROUTE ; Start at 14:28; Stop 09/12/16 at 14:29; Status DC Sodium Chloride (Sodium Chloride 0.9% Inj) 20 ml STK-MED ONCE .ROUTE ; Start 09/12/16 at 14:34; Stop 09/12/16 at 14:35; Status DC Lidocaine HCl (Xylocaine 2% Inj) 50 ml STK-MED ONCE .ROUTE Last administered on 09/12/16 16:19; Start 09/12/16 at 14:34; Stop 09/12/16 at 14:35; Status DC Epinephrine HCl (Adrenalin (1:1000) Inj) 1 mg STK-MED ONCE .ROUTE ; Start at 14:34; Stop 09/12/16 at 14:35; Status DC Midazolam HCl (Versed Inj) 2 mg STK-MED ONCE .ROUTE ; Start 09/12/16 at 15:56; Stop 3/9/17 at 15:57; Status DC Lidocaine HCl (Xylocaine 2% Viscous) 15 ml STK-MED ONCE .ROUTE Last administered on 09/12/16t 16:18; Start 09/12/16 at 16:17; Stop 09/12/16 at 16:18; Status DC Fentanyl Citrate (fentaNYL INJ) 250 mcg STK-MED ONCE .ROUTE ; Start 09/12/16 at 16:49; Stop 09/12/16 at 16:50; Status DC Miscellaneous Information ALL NURSING DEPARTME... UNSCH PRN XX SEE LABEL COMMENTS; Start 09/12/16 at 17:30; Stop 09/13/16 at 17:29 A/P Assessment and Plan A/P Toxic Encephalopathy-improved. Suicidal ideations Multiple suicide attempts Chronic Pain Patient's prescription medications include Seroquel, symptomatology suspicious for overdose-confirmed by patient and family postextubation Patient previously on methadone 45 mg daily complaining of pain methadone reinitiated a decreased dose 20 mg daily psych consult appreciated and cleared the patient for discharge. Acute hypoxemic respiratory failure- resolved Multilobular Pneumonia CXR 3/2-questionable infiltrate right mid lung, possible pneumonia CT chest 3/2-complete left lower lobe opacification, right upper lobe possible pneumonia s/p bronchoscopy will follow the cultures Empiric Abx for now continue neb treatment Sinus tachycardia- improved Community-acquired pneumonia Mild leukocytosis-resolved s/p bronchoscopy as noted above. Continue to monitor CBC Empiric antibiotics Vanc , Zosyn and Azithromycin ; will deescalate the Abx when the cultures are resulted. Hypertension on clonidine at home; resumed. Prophylaxis: GI Prophylaxis Pepcid DVT Prophylaxis -- SCDs Lovenox 40 mg /day Discharge Planning possible dc home- pending bronchoscopy and psych evaluation. see med list. f/u; pcp , pulmonary, psych and methadone clinic. d/w the patient and RN. time spent 32 min. Audrey Luevano MD Sep 13, 2016 08:39
[2016-09-13] MEDS: PANTOPRAZOLE SOD 40 MG DELAYED RELEASE TAB PO SCH (09:00)
[2016-09-13] MEDS: AZITHROMYCIN INJ 500 MG in SODIUM CHLOR 0.9% 250 ML INJ 250 ML IV SCH (13:21)
--- NOTE | 2016-09-13 16:22 | HHI.PR ---
Subjective Remarks ALERT UP IN CHAIR NO SOB Objective Vital Signs Date Time Temp Pulse Resp B/P Pulse Ox O2 Delivery O2 Flow Rate FiO2 09/13/16 11:01 76 09/13/16 10:01 74 09/13/16 09:36 18 09/13/16 09:19 98 21 09/13/16 09:00 78 09/13/16 08:45 97.9 65 16 157/93 99 09/13/16 08:00 76 09/13/16 07:00 74 09/13/16 06:12 58 09/13/16 05:00 56 09/13/16 04:00 98.0 72 102/57 96 09/13/16 04:00 60 09/13/16 03:00 64 09/13/16 02:00 64 09/13/16 01:00 66 09/13/16 00:50 97.9 75 129/68 96 09/13/16 00:00 76 09/12/16 23:00 72 09/12/16 22:00 66 09/12/16 21:00 78 09/12/16 20:00 78 09/12/16 20:00 97.7 80 151/94 100 09/12/16 19:00 78 09/12/16 17:30 97.9 77 20 153/94 99 09/12/16 17:15 74 16 136/82 99 Nasal Cannula 2 09/12/16 17:00 70 16 144/87 99 Nasal Cannula 2 09/12/16 16:45 98.9 90 16 119/80 99 Nasal Cannula 2 I/O 09/12/16 09/12/16 09/12/16 09/13/16 09/13/16 09/13/16 07:00 15:00 23:00 07:00 15:00 23:00 Intake Total 1290 ml 1340 ml 240 ml Output Total 450 ml Balance 840 ml 1340 ml 240 ml Intake Oral 840 ml 240 ml 240 ml IV Total 450 ml 1100 ml Output Urine Total 450 ml # Voids 4 3 # Bowel Movements 0 Result Diagram: 09/12/16 0559 Objective Remarks GENERAL: SKIN: Warm and dry. HEAD: Atraumatic. Normocephalic. EYES: Pupils equal and round. No scleral icterus. No injection or drainage. ENT: No nasal bleeding or discharge. Mucous membranes pink and moist. NECK: Trachea midline. No JVD. CARDIOVASCULAR: Regular rate and rhythm. RESPIRATORY: No accessory muscle use. Clear to auscultation. Breath sounds equal bilaterally. GASTROINTESTINAL: Abdomen soft, non-tender, nondistended. Hepatic and splenic margins not palpable. MUSCULOSKELETAL: Extremities without clubbing, cyanosis, or edema. No obvious deformities. NEUROLOGICAL: Awake and alert. No obvious cranial nerve deficits. Motor grossly within normal limits. Five out of 5 muscle strength in the arms and legs. Normal speech. PSYCHIATRIC: Appropriate mood and affect; insight and judgment normal. Assessment and Plan Assessment and Plan REPIRATORY FAIILURE , RESOLVED bronchoscopy unremarkable PLAN INCREASE ACTIVITY BRONCHOSCOPY tomorrow Rose Rose MD Sep 13, 2016 16:22
[2016-09-13] MEDS: CHLORHEXIDINE 0.12% (ORAL KIT) 15 ML CUP MT SCH (20:00)
[2016-09-13] MEDS: cloNIDine HCL 0.1 MG TAB PO SCH (20:38)
[2016-09-13] MEDS: ENOXAPARIN SODIUM 40 MG/0.4 ML SYRINGE SQ SCH (20:38)
[2016-09-14] VITALS (25 sets, daily range): BP systolic 125–154; BP diastolic 66–93; PULSE 53–77; RESP 18; TEMP 97.4–98.7; O2SAT 98–100
[2016-09-14] MEDS: VANCOMYCIN INJ 1,500 MG in SODIUM CHLORID 0.9% 500 ML INJ 500 ML IV SCH ×2 (02:25→14:43)
[2016-09-14] MEDS: PIPERACIL-TAZO 4.5 GM PREMIX 100 ML IV SCH ×4 (02:26→21:01)
[2016-09-14] MEDS: CHLORHEXIDINE GLUCONATE 2 % 1 PACK (2 CLOTHS) TOP SCH ×2 (04:00→19:30)
[2016-09-14] MEDS: DOCUSATE SODIUM 100 MG/10 ML UDC G-TUBE SCH ×2 (08:00→20:00)
[2016-09-14] MEDS: CHLORHEXIDINE 0.12% (ORAL KIT) 15 ML CUP MT SCH ×2 (08:00→20:00)
--- NOTE | 2016-09-14 08:16 | HHI.PR ---
Subjective Remarks resting comfortably with no distress. has occasional cough. no fever. Objective Vitals Vital Signs Date Time Temp Pulse Resp B/P Pulse Ox O2 Delivery O2 Flow Rate FiO2 09/14/16 07:00 53 09/14/16 05:15 56 09/14/16 04:00 56 09/14/16 03:34 98.2 64 129/77 99 09/14/16 03:00 60 09/14/16 02:00 56 09/14/16 01:00 58 09/14/16 00:30 98.1 76 125/66 98 09/14/16 00:00 64 09/13/16 22:00 74 09/13/16 21:00 68 09/13/16 20:54 93 21 09/13/16 20:00 70 09/13/16 19:00 71 09/13/16 19:00 97.7 75 154/94 100 09/13/16 16:29 66 09/13/16 15:45 98.0 81 18 136/85 99 09/13/16 11:01 76 09/13/16 10:01 74 09/13/16 09:36 18 09/13/16 09:19 98 21 09/13/16 09:00 78 09/13/16 08:45 97.9 65 16 157/93 99 I/O 09/13/16 09/13/16 09/13/16 09/14/16 09/14/16 09/14/16 07:00 15:00 23:00 07:00 15:00 23:00 Intake Total 240 ml 1620 ml 240 ml Output Total 125 ml 1000 ml Balance 240 ml 1495 ml -760 ml Intake Oral 240 ml 720 ml 240 ml IV Total 900 ml Output Urine Total 125 ml 1000 ml # Voids 3 7 # Bowel Movements 1 Result Diagram: 09/14/16 0348 Imaging Last Impressions Chest X-Ray 09/08/16 0000 Signed Impressions: Service Date/Time: Thursday, September 08, 2016 06:02 - CONCLUSION: Stable chest appearance Terrance Wood MD CT Angiography 09/05/16 1436 Signed Impressions: Service Date/Time: September 16:08 - CONCLUSION: Significant infiltrate with near complete opacification of the left lower lobe. Both the left upper lobe and left lower lobe bronchi are markedly narrowed. Bronchoscopy is recommended to evaluate the left bronchi. Airspace of the right upper lobe possible pneumonia. No evidence of pulmonary emboli. Neal Mehta MD Head CT 09/05/16 0000 Signed Impressions: Service Date/Time: September 11:10 - CONCLUSION: No acute intracranial disease. Kike Serrano MD Abdomen/Pelvis CT 09/05/16 0000 Signed Impressions: Service Date/Time: September 16:08 - CONCLUSION: Normal examination of the abdomen or pelvis. Dense infiltrate left lower lobe. Erosive changes both SI joints. Neal Mehta MD Objective Remarks GENERAL: This is a well-nourished, well-developed patient, in no apparent distress. CARDIOVASCULAR: Regular rate and regular rhythm without murmurs, gallops, or rubs. RESPIRATORY: Clear to auscultation. Breath sounds equal bilaterally. No wheezes , rales, or rhonchi. GASTROINTESTINAL: Abdomen soft, non-tender, nondistended. Normal, active bowel sounds MUSCULOSKELETAL: Extremities without clubbing, cyanosis, or edema. NEURO: Alert & Oriented x4 to person, place, time, situation. Moves all ext x4 Procedures endotracheal intubation. bronchoscopy Medications and IVs Current Medications IV Flush 2 ml 2 ml UNSCH PRN IVF FLUSH AFTER USING IV ACCESS Last administered on 09/05/16 09:52; Start 09/05/16 at 08:45; Stop 09/05/16 at 17:27; Status DC Sodium Chloride (NS 1000 ml Inj) 1,000 ml @ 999 mls/hr BOLUS ONCE IV Last administered on 09/05/16 08:51; Start 09/05/16 at 08:45; Stop 09/05/16 at 09:45; Status DC Azithromycin 500 mg 500 mg ONCE ONCE PO Last administered on 09/05/16 13:13; Start 09/05/16 at 12:45; Stop 09/05/16 at 14:34; Status DC Levofloxacin/ Dextrose (Levaquin 750 Mg Premix Inj) 150 ml @ 100 mls/hr ONCE ONCE IV Last administered on 09/05/16 14:49; Start 09/05/16 at 14:45; Stop at 16:14; Status DC Naloxone HCl (Narcan Inj) 0.4 mg STK-MED ONCE .ROUTE Last administered on 16:42; Start 09/05/16 at 15:44; Stop 09/05/16 at 15:45; Status DC Naloxone HCl (Narcan Inj) 0.4 mg STK-MED ONCE .ROUTE Last administered on 16:42; Start 09/05/16 at 15:46; Stop 09/05/16 at 15:47; Status DC Ondansetron HCl (Zofran Inj) 4 mg STK-MED ONCE .ROUTE Last administered on 16:42; Start 09/05/16 at 15:47; Stop 09/05/16 at 15:48; Status DC Etomidate (Amidate Inj) 20 mg STK-MED ONCE .ROUTE ; Start 09/05/16 at 15:50; Stop 09/05/16 at 15:51; Status DC Succinylcholine Chloride 200 mg 200 mg STK-MED ONCE .ROUTE ; Start 09/05/16 at 15 :50; Stop 09/05/16 at 15:51; Status DC Propofol (Diprivan 1000 Mg/100ml Inj) 100 ml @ 0 mls/hr TITRATE IV Last administered on 09/07/16 09:38; Start 09/05/16 at 16:00; Stop 09/07/16 at 12:51; Status DC Succinylcholine Chloride (Quelicin Inj) 100 mg ONCE ONCE IV PUSH Last administered on 09/05/16 16:44; Start 09/05/16 at 16:00; Stop 09/05/16 at 16:02; Status DC Etomidate (Amidate Inj) 20 mg ONCE ONCE IV PUSH Last administered on 09/05/16 16:44; Start 09/05/16 at 16:00; Stop 09/05/16 at 16:02; Status DC Iohexol 60 ml 60 ml STK-MED ONCE IV Last administered on 09/05/16 16:07; Start 09/05/16 at 16:07; Stop 09/05/16 at 16:08; Status DC Sodium Chloride (NS 1000 ml Inj) 1,000 ml @ 50 mls/hr Q20H IV Last administered on 09/08/16 02:54; Start 09/05/16 at 17:00; Stop 09/08/16 at 19:57; Status DC IV Flush (NS Flush) 2 ml UNSCH PRN IV FLUSH FLUSH AFTER USING IV ACCESS Last administered on 09/11/16 08:58; Start 09/05/16 at 17:00 IV Flush (NS Flush) 2 ml BID IV FLUSH Last administered on 09/13/16 20:38; Start 09/05/16 at 21:00 Acetaminophen (Tylenol) 650 mg Q6H PRN PO PAIN 1-10 AND/OR FEVER >101F Last administered on 09/08/16 17:24; Start 09/05/16 at 17:00 Famotidine (Pepcid Inj) 20 mg Q12HR IV PUSH Last administered on 09/13/16 08: 34; Start 09/05/16 at 21:00; Stop 09/13/16 at 08:39; Status DC Ondansetron HCl (Zofran Inj) 4 mg Q6H PRN IV NAUSEA OR VOMITING; Start 09/05/16 at 17:00 Docusate Sodium (Colace Liq) 100 mg Q12H G-TUBE Last administered on 09/13/16 08:31; Start 09/05/16 at 20:00 Sennosides (Senokot) 17.2 mg Q12H PRN PO CONSTIPATION; Start 09/05/16 at 17:00 Albuterol/ Ipratropium (Duoneb Neb) 1 ampule Q6HR NEB INH Last administered on 09/08/16 08:00; Start 09/05/16 at 22:00; Stop 09/08/16 at 13:01; Status DC Albuterol/ Ipratropium (Duoneb Neb) 1 ampule Q2HR NEB PRN INH WHEEZING Last administered on 09/09/16 02:42; Start 09/05/16 at 17:00 Enoxaparin Sodium (Lovenox Inj) 40 mg Q24H SQ Last administered on 09/13/16 20 :38; Start 09/05/16 at 20:00 Miscellaneous Information 1 Q361D XX ; Start 09/05/16 at 17:00 Chlorhexidine Gluconate (Chlorhexidine 2% Cloth) Taper DAILY@04 TOP Last administered on 09/09/16 06:10; Start 09/06/16 at 04:00; Stop 09/02/17 at 03:59 Chlorhexidine Gluconate 3 pack 3 pack UNSCH PRN TOP HYGIENIC CARE; Start at 17:00 Potassium Chloride 100 ml @ 50 mls/hr Q2H PRN IV For Potassium 2.8 - 3.2 mEq/L ; Start 09/05/16 at 17:00; Stop 09/09/16 at 08:55; Status DC Potassium Chloride (KCl 20 Meq Premix Inj) 100 ml @ 50 mls/hr Q2H PRN IV For Potassium 2.8 - 3.2 mEq/L; Start 09/05/16 at 17:00; Stop 09/09/16 at 08:55; Status DC Potassium Chloride 40 meq 40 meq UNSCH PRN PO/TUBE For Potassium 3.3 - 3.5 mEq/ L Last administered on 09/07/16 09:51; Start 09/05/16 at 17:00; Stop 09/09/16 at 08:55; Status DC Potassium Chloride 100 ml @ 25 mls/hr UNSCH PRN IV For Potassium 3.3 - 3.5 mEq /L; Start 09/05/16 at 17:00; Stop 09/09/16 at 08:55; Status DC Potassium Chloride 100 ml @ 50 mls/hr Q2H PRN IV For Potassium 3.3 - 3.5 mEq/L ; Start 09/05/16 at 17:00; Stop 09/09/16 at 08:56; Status DC Magnesium Sulfate/ Sodium Chloride (Magnesium Sulfate Inj/NS Inj) 100 ml @ 50 mls/hr UNSCH PRN IV For Magnesium 0.9 - 1.1 mg/dL; Start 09/05/16 at 17:00; Stop 09/09/16 at 08:56; Status DC Magnesium Oxide 800 mg 800 mg UNSCH PRN PO For Magnesium 1.2 - 1.6 mg/dL; Start 09/05/16 at 17:00; Stop 09/09/16 at 08:57; Status DC Magnesium Sulfate/ Sodium Chloride (Magnesium Sulfate Inj/NS Inj) 100 ml @ 50 mls/hr UNSCH PRN IV For Magnesium 1.2 - 1.6 mg/dL Last administered on 08:29; Start 09/05/16 at 17:00; Stop 09/09/16 at 08:57; Status DC Potassium Phosphate 2000 mg 2,000 mg Q4H PRN PO For Phosphorus < 2.5 mg/dL Last administered on 09/06/16 08:33; Start 09/05/16 at 17:00; Stop 09/09/16 at 08: 57; Status DC Sodium Phosphate/ Sodium Chloride (Sodium Phosphate Inj/NS 250 ml Inj) 250 ml @ 42 mls/hr UNSCH PRN IV For Phosphorus < 2.5 mg/dL; Start 09/05/16 at 17:00; Stop 09/13/16 at 08:39; Status DC Potassium Chloride (KCl 40 Meq/30 ml Liq) 40 meq UNSCH PRN PO/TUBE SEE LABEL COMMENTS; Start 09/05/16 at 17:00; Stop 09/09/16 at 08:57; Status DC Potassium Phosphate 2000 mg 2,000 mg UNSCH PRN PO/TUBE SEE LABEL COMMENTS; Start 09/05/16 at 17:00; Stop 09/09/16 at 08:57; Status DC Potassium Phosphate/Sodium Chloride (Potassium Phosphate Inj/NS 250 ml Inj) 260 ml @ 42 mls/hr UNSCH PRN IV SEE LABEL COMMENTS; Start 09/05/16 at 17:00; Stop 09/09/16 at 08:57; Status DC Chlorhexidine Gluconate (Peridex 0.12% Liq) 15 ml BID@08,20 MT Last administered on 09/08/16 08:00; Start 09/05/16 at 20:00 Dextrose (D50w (Vial) Inj) 25 ml UNSCH PRN IV PUSH HYPOGLYCEMIA-SEE COMMENTS; Start 09/05/16 at 17:00 Glucagon 1 mg 1 mg UNSCH PRN OTHER HYPOGLYCEMIA-SEE COMMENTS; Start 09/05/16 at 17:00 Piperacillin Sod/ Tazobactam Sod 100 ml @ 200 mls/hr Q6H IV Last administered on 09/14/16 02:26; Start 09/05/16 at 20:00 Azithromycin 500 mg/Sodium Chloride 250 ml @ 250 mls/hr Q24H IV Last administered on 09/13/16 13:21; Start 09/06/16 at 13:00 Vancomycin HCl 1250 mg/Sodium Chloride 262.5 ml @ 250 mls/hr ONCE ONCE IV ; Start 09/05/16 at 19:00; Stop 09/05/16 at 20:02; Status UNV Pharmacy Profile Note 0 ml @ 0 mls/hr UNSCH OTHER ; Start 09/05/16 at 19:00 Vancomycin HCl/ Sodium Chloride (Vancomycin Inj/ NS 250 ml Inj) 262.5 ml @ 250 mls/hr Q8H IV Last administered on 09/06/16 22:29; Start 09/05/16 at 22:00; Stop 09/07/16 at 11:59; Status DC Miscellaneous Information SPECIFIC LAB TO BE OSWALDO... ONCE ONCE XX ; Start at 21:45; Stop 09/06/16 at 21:46; Status DC Magnesium Sulfate/ Dextrose (Magnesium Sulfate 1 Gm Premix) 100 ml @ 100 mls/ hr Q1H IV ; Start 09/06/16 at 09:00; Stop 09/06/16 at 10:59; Status DC Acetaminophen/ Hydrocodone Bitart ([place] 10-325 Mg) 1 tab Q6H PO ; Start at 11:00; Stop 09/07/16 at 11:00; Status DC Methadone HCl 45 mg 45 mg DAILY PO Last administered on 09/07/16 11:45; Start 09/07/16 at 11:00; Stop 09/07/16 at 17:33; Status DC Vancomycin HCl/ Sodium Chloride (Vancomycin Inj/ NS 250 ml Inj) 250 ml @ 250 mls/hr Q8H IV Last administered on 09/08/16 12:10; Start 09/07/16 at 13:00; Stop 09/08/16 at 14:04; Status DC Miscellaneous Information SPECIFIC LAB TO BE DRAWN:VANCOMYCIN TROUGH DATE TO... ONCE ONCE XX Last administered on 09/08/16 12:05; Start 09/08/16 at 12:45; Stop 09/08/16 at 12:46; Status DC Propofol 100 ml @ 0 mls/hr TITRATE IV ; Start 09/07/16 at 13:00; Stop 09/07/16 at 13:41; Status DC Dexmedetomidine HCl 50 ml @ 0 mls/hr TITRATE IV Last administered on 09/08/16 08:45; Start 09/07/16 at 13:45; Stop 09/08/16 at 19:57; Status DC Propofol (Diprivan 1000 Mg/100ml Inj) 100 ml @ 0 mls/hr TITRATE IV ; Start at 13:45; Stop 09/08/16 at 19:57; Status DC Methadone HCl (Methadone Liq) 20 mg DAILY PO Last administered on 09/13/16 08 :36; Start 09/08/16 at 09:00 Lorazepam (Ativan Inj) 1 mg Q4H PRN IVP ANXIETY; Start 09/08/16 at 11:45; Stop 09/08/16 at 11:48; Status DC Acetaminophen (Ofirmev Inj) 1,000 mg Q6H PRN IV PAIN SCALE 7 TO 10; Start at 11:45; Stop 09/08/16 at 11:48; Status DC Albuterol/ Ipratropium 1 ampule 1 ampule TID NEB INH Last administered on 13:23; Start 09/08/16 at 14:00; Stop 09/12/16 at 14:00; Status DC Vancomycin HCl/ Sodium Chloride (Vancomycin Inj/ NS 250 ml Inj) 262.5 ml @ 250 mls/hr Q12H IV Last administered on 09/10/16 14:00; Start 09/09/16 at 01:00; Stop 09/10/16 at 18:00; Status DC Miscellaneous Information SPECIFIC LAB TO BE DRAWN:VANCOMY... ONCE ONCE XX ; Start 09/09/16 at 12:45; Stop 09/09/16 at 12:45; Status DC Miscellaneous Information SPECIFIC LAB TO BE DRAWN:VANCO TROUGH DATE TO BE DR... ONCE ONCE XX ; Start 09/10/16 at 12:45; Stop 09/10/16 at 12:46; Status DC Clonidine 0.1 mg 0.1 mg ONCE ONCE PO Last administered on 09/09/16 20:00; Start 09/09/16 at 20:00; Stop 09/09/16 at 20:01; Status DC Vancomycin HCl/ Sodium Chloride (Vancomycin Inj/ NS 500 ml Inj) 515 ml @ 250 mls/hr Q12H IV Last administered on 09/14/16 02:25; Start 09/11/16 at 02:00 Miscellaneous Information SPECIFIC LAB TO BE DRAWN:VANCOMYCIN TROUGH DATE TO... ONCE ONCE XX ; Start 09/12/16 at 13:45; Stop 09/12/16 at 13:46; Status DC Clonidine (Catapres) 0.1 mg HS PO Last administered on 09/13/16 20:38; Start 09/11/16 at 21:00 Enalaprilat (Vasotec Inj) 1.25 mg Q8H PRN IV PUSH SBP> OR = 180, DBP> OR = 100 ; Start 09/11/16 at 08:30 Albuterol Sulfate (Albuterol Concentrated Neb) 2.5 mg TOBACCO FEEDER CATCHER NEB Last administered on 09/12/16 15:22; Start 09/11/16 at 16:15; Stop 09/15/16 at 16:14 Lidocaine HCl (Lidocaine Pf 4% Neb) 3 ml TOBACCO FEEDER CATCHER NEB Last administered on 15:23; Start 09/11/16 at 16:15; Stop 09/15/16 at 16:14 Lidocaine HCl (Xylocaine 2% Inj) 50 ml STK-MED ONCE .ROUTE ; Start 09/12/16 at 14 :28; Stop 09/12/16 at 14:29; Status DC Epinephrine HCl (Adrenalin (1:1000) Inj) 1 mg STK-MED ONCE .ROUTE ; Start at 14:28; Stop 09/12/16 at 14:29; Status DC Sodium Chloride (Sodium Chloride 0.9% Inj) 20 ml STK-MED ONCE .ROUTE ; Start 09/12/16 at 14:34; Stop 09/12/16 at 14:35; Status DC Lidocaine HCl (Xylocaine 2% Inj) 50 ml STK-MED ONCE .ROUTE Last administered on 09/12/16 16:19; Start 09/12/16 at 14:34; Stop 09/12/16 at 14:35; Status DC Epinephrine HCl (Adrenalin (1:1000) Inj) 1 mg STK-MED ONCE .ROUTE ; Start at 14:34; Stop 09/12/16 at 14:35; Status DC Midazolam HCl (Versed Inj) 2 mg STK-MED ONCE .ROUTE ; Start 09/12/16 at 15:56; Stop 09/12/16 at 15:57; Status DC Lidocaine HCl (Xylocaine 2% Viscous) 15 ml STK-MED ONCE .ROUTE Last administered on 3/9/17at 16:18; Start 09/12/16 at 16:17; Stop 09/12/16 at 16:18; Status DC Fentanyl Citrate (fentaNYL INJ) 250 mcg STK-MED ONCE .ROUTE ; Start 09/12/16 at 16:49; Stop 09/12/16 at 16:50; Status DC Miscellaneous Information ALL NURSING DEPARTME... UNSCH PRN XX SEE LABEL COMMENTS; Start 09/12/16 at 17:30; Stop 09/13/16 at 17:29; Status DC Propofol (Diprivan 200 Mg/20 ml Inj) 600 mg STK-MED ONCE IV ; Start 09/12/16 at 12:00; Stop 09/13/16 at 08:34; Status DC Pantoprazole Sodium (Protonix) 40 mg DAILY PO ; Start 09/13/16 at 09:00 A/P Assessment and Plan A/P Toxic Encephalopathy-improved. Suicidal ideations Multiple suicide attempts Chronic Pain Patient's prescription medications include Seroquel, symptomatology suspicious for overdose-confirmed by patient and family postextubation Patient previously on methadone 45 mg daily complaining of pain methadone reinitiated a decreased dose 20 mg daily psych consult appreciated and cleared the patient for discharge. Acute hypoxemic respiratory failure- resolved Multilobular Pneumonia CXR 3/2-questionable infiltrate right mid lung, possible pneumonia CT chest 3/2-complete left lower lobe opacification, right upper lobe possible pneumonia s/p bronchoscopy will follow the cultures Empiric Abx for now continue neb treatment Sinus tachycardia- improved Community-acquired pneumonia Mild leukocytosis-resolved s/p bronchoscopy as noted above. Continue to monitor CBC Empiric antibiotics Vanc , Zosyn and Azithromycin ; will deescalate the Abx when the cultures are resulted. Hypertension on clonidine at home; resumed. Prophylaxis: GI Prophylaxis Pepcid DVT Prophylaxis -- SCDs Lovenox 40 mg /day Discharge Planning possible dc home within the next one-two days pending the result of cultures. see med list. f/u; pcp , pulmonary, psych and methadone clinic. d/w the patient and RN. time spent 32 min. Audrey Luevano MD Sep 14, 2016 08:16
[2016-09-14] MEDS: PANTOPRAZOLE SOD 40 MG DELAYED RELEASE TAB PO SCH (09:38)
[2016-09-14] MEDS: METHADONE HCL 10 MG/10 ML ORAL SOLUTION PO SCH (09:39)
[2016-09-14] MEDS: SODIUM CHLORIDE 0.9% FLUSH 5 ML FLUSH IV FLUSH SCH ×2 (09:39→21:01)
[2016-09-14] MEDS: AZITHROMYCIN INJ 500 MG in SODIUM CHLOR 0.9% 250 ML INJ 250 ML IV SCH (12:09)
[2016-09-14] MEDS: cloNIDine HCL 0.1 MG TAB PO SCH (21:01)
[2016-09-14] MEDS: ENOXAPARIN SODIUM 40 MG/0.4 ML SYRINGE SQ SCH (21:01)
[2016-09-15] VITALS (8 sets, daily range): BP systolic 120–169; BP diastolic 68–97; PULSE 52–80; RESP 18; TEMP 97.6–97.7; O2SAT 98–100
[2016-09-15] MEDS: VANCOMYCIN INJ 1,500 MG in SODIUM CHLORID 0.9% 500 ML INJ 500 ML IV SCH (01:48)
[2016-09-15] MEDS: PIPERACIL-TAZO 4.5 GM PREMIX 100 ML IV SCH (01:53)
[2016-09-15] MEDS: CHLORHEXIDINE 0.12% (ORAL KIT) 15 ML CUP MT SCH (08:00)
[2016-09-15] MEDS: DOCUSATE SODIUM 100 MG/10 ML UDC G-TUBE SCH (08:00)
--- NOTE | 2016-09-15 08:27 | HHI.PR ---
Subjective Remarks resting comfortably with no distress. afebrile. no sob. Objective Vitals Vital Signs Date Time Temp Pulse Resp B/P Pulse Ox O2 Delivery O2 Flow Rate FiO2 09/15/16 08:00 66 09/15/16 07:00 97.7 66 18 161/93 100 09/15/16 07:00 53 09/15/16 06:00 52 09/15/16 05:00 80 09/15/16 04:00 97.6 71 18 169/97 100 09/15/16 03:00 53 09/15/16 00:00 97.6 61 18 120/68 98 09/15/16 00:00 61 09/14/16 23:00 63 09/14/16 20:00 97.4 67 18 153/93 100 09/14/16 20:00 67 09/14/16 18:00 62 09/14/16 17:00 69 09/14/16 16:00 61 09/14/16 15:00 62 09/14/16 15:00 97.7 61 18 139/87 100 09/14/16 14:00 65 09/14/16 13:00 77 09/14/16 12:14 99 21 09/14/16 12:00 56 09/14/16 11:08 98.4 70 18 135/79 99 09/14/16 11:00 60 09/14/16 10:00 66 09/14/16 09:00 72 09/14/16 08:51 98.7 70 18 154/89 100 I/O 09/14/16 09/14/16 09/14/16 09/15/16 09/15/16 09/15/16 07:00 15:00 23:00 07:00 15:00 23:00 Intake Total 240 ml 840 ml 440 ml Output Total 1000 ml 1500 ml 600 ml Balance -760 ml -660 ml -160 ml Intake Oral 240 ml 840 ml 440 ml Output Urine Total 1000 ml 1500 ml 600 ml # Bowel Movements 1 0 Result Diagram: 09/14/16 0348 Imaging Last Impressions Chest X-Ray 09/08/16 0000 Signed Impressions: Service Date/Time: Thursday, September 08, 2016 06:02 - CONCLUSION: Stable chest appearance Terrance Wood MD CT Angiography 09/05/16 1436 Signed Impressions: Service Date/Time: September 16:08 - CONCLUSION: Significant infiltrate with near complete opacification of the left lower lobe. Both the left upper lobe and left lower lobe bronchi are markedly narrowed. Bronchoscopy is recommended to evaluate the left bronchi. Airspace of the right upper lobe possible pneumonia. No evidence of pulmonary emboli. Neal Mehta MD Head CT 09/05/16 0000 Signed Impressions: Service Date/Time: September 11:10 - CONCLUSION: No acute intracranial disease. Kike Serrano MD Abdomen/Pelvis CT 09/05/16 0000 Signed Impressions: Service Date/Time: September 16:08 - CONCLUSION: Normal examination of the abdomen or pelvis. Dense infiltrate left lower lobe. Erosive changes both SI joints. Neal Mehta MD Objective Remarks GENERAL: This is a well-nourished, well-developed patient, in no apparent distress. CARDIOVASCULAR: Regular rate and regular rhythm without murmurs, gallops, or rubs. RESPIRATORY: Clear to auscultation. Breath sounds equal bilaterally. No wheezes , rales, or rhonchi. GASTROINTESTINAL: Abdomen soft, non-tender, nondistended. Normal, active bowel sounds MUSCULOSKELETAL: Extremities without clubbing, cyanosis, or edema. NEURO: Alert & Oriented x4 to person, place, time, situation. Moves all ext x4 Procedures endotracheal intubation. bronchoscopy Medications and IVs Current Medications IV Flush 2 ml 2 ml UNSCH PRN IVF FLUSH AFTER USING IV ACCESS Last administered on 09/05/16 09:52; Start 09/05/16 at 08:45; Stop 09/05/16 at 17:27; Status DC Sodium Chloride (NS 1000 ml Inj) 1,000 ml @ 999 mls/hr BOLUS ONCE IV Last administered on 09/05/16 08:51; Start 09/05/16 at 08:45; Stop 09/05/16 at 09:45; Status DC Azithromycin 500 mg 500 mg ONCE ONCE PO Last administered on 09/05/16 13:13; Start 09/05/16 at 12:45; Stop 09/05/16 at 14:34; Status DC Levofloxacin/ Dextrose (Levaquin 750 Mg Premix Inj) 150 ml @ 100 mls/hr ONCE ONCE IV Last administered on 09/05/16 14:49; Start 09/05/16 at 14:45; Stop at 16:14; Status DC Naloxone HCl (Narcan Inj) 0.4 mg STK-MED ONCE .ROUTE Last administered on 16:42; Start 09/05/16 at 15:44; Stop 09/05/16 at 15:45; Status DC Naloxone HCl (Narcan Inj) 0.4 mg STK-MED ONCE .ROUTE Last administered on 16:42; Start 09/05/16 at 15:46; Stop 09/05/16 at 15:47; Status DC Ondansetron HCl (Zofran Inj) 4 mg STK-MED ONCE .ROUTE Last administered on 16:42; Start 09/05/16 at 15:47; Stop 09/05/16 at 15:48; Status DC Etomidate (Amidate Inj) 20 mg STK-MED ONCE .ROUTE ; Start 09/05/16 at 15:50; Stop 09/05/16 at 15:51; Status DC Succinylcholine Chloride 200 mg 200 mg STK-MED ONCE .ROUTE ; Start 09/05/16 at 15 :50; Stop 09/05/16 at 15:51; Status DC Propofol (Diprivan 1000 Mg/100ml Inj) 100 ml @ 0 mls/hr TITRATE IV Last administered on 09/07/16 09:38; Start 09/05/16 at 16:00; Stop 09/07/16 at 12:51; Status DC Succinylcholine Chloride (Quelicin Inj) 100 mg ONCE ONCE IV PUSH Last administered on 09/05/16 16:44; Start 09/05/16 at 16:00; Stop 09/05/16 at 16:02; Status DC Etomidate (Amidate Inj) 20 mg ONCE ONCE IV PUSH Last administered on 09/05/16 16:44; Start 09/05/16 at 16:00; Stop 09/05/16 at 16:02; Status DC Iohexol 60 ml 60 ml STK-MED ONCE IV Last administered on 09/05/16 16:07; Start 09/05/16 at 16:07; Stop 09/05/16 at 16:08; Status DC Sodium Chloride (NS 1000 ml Inj) 1,000 ml @ 50 mls/hr Q20H IV Last administered on 09/08/16 02:54; Start 09/05/16 at 17:00; Stop 09/08/16 at 19:57; Status DC IV Flush (NS Flush) 2 ml UNSCH PRN IV FLUSH FLUSH AFTER USING IV ACCESS Last administered on 09/11/16 08:58; Start 09/05/16 at 17:00 IV Flush (NS Flush) 2 ml BID IV FLUSH Last administered on 09/14/16 21:01; Start 09/05/16 at 21:00 Acetaminophen (Tylenol) 650 mg Q6H PRN PO PAIN 1-10 AND/OR FEVER >101F Last administered on 09/08/16 17:24; Start 09/05/16 at 17:00 Famotidine (Pepcid Inj) 20 mg Q12HR IV PUSH Last administered on 09/13/16 08: 34; Start 09/05/16 at 21:00; Stop 09/13/16 at 08:39; Status DC Ondansetron HCl (Zofran Inj) 4 mg Q6H PRN IV NAUSEA OR VOMITING; Start 09/05/16 at 17:00 Docusate Sodium (Colace Liq) 100 mg Q12H G-TUBE Last administered on 09/13/16 08:31; Start 09/05/16 at 20:00 Sennosides (Senokot) 17.2 mg Q12H PRN PO CONSTIPATION; Start 09/05/16 at 17:00 Albuterol/ Ipratropium (Duoneb Neb) 1 ampule Q6HR NEB INH Last administered on 09/08/16 08:00; Start 09/05/16 at 22:00; Stop 09/08/16 at 13:01; Status DC Albuterol/ Ipratropium (Duoneb Neb) 1 ampule Q2HR NEB PRN INH WHEEZING Last administered on 09/09/16 02:42; Start 09/05/16 at 17:00 Enoxaparin Sodium (Lovenox Inj) 40 mg Q24H SQ Last administered on 09/14/16 21 :01; Start 09/05/16 at 20:00 Miscellaneous Information 1 Q361D XX ; Start 09/05/16 at 17:00 Chlorhexidine Gluconate (Chlorhexidine 2% Cloth) Taper DAILY@04 TOP Last administered on 09/09/16t 06:10; Start 09/06/16 at 04:00; Stop 09/02/17 at 03:59 Chlorhexidine Gluconate 3 pack 3 pack UNSCH PRN TOP HYGIENIC CARE; Start at 17:00 Potassium Chloride 100 ml @ 50 mls/hr Q2H PRN IV For Potassium 2.8 - 3.2 mEq/L ; Start 09/05/16 at 17:00; Stop 09/09/16 at 08:55; Status DC Potassium Chloride (KCl 20 Meq Premix Inj) 100 ml @ 50 mls/hr Q2H PRN IV For Potassium 2.8 - 3.2 mEq/L; Start 09/05/16 at 17:00; Stop 09/09/16 at 08:55; Status DC Potassium Chloride 40 meq 40 meq UNSCH PRN PO/TUBE For Potassium 3.3 - 3.5 mEq/ L Last administered on 09/07/16 09:51; Start 09/05/16 at 17:00; Stop 09/09/16 at 08:55; Status DC Potassium Chloride 100 ml @ 25 mls/hr UNSCH PRN IV For Potassium 3.3 - 3.5 mEq /L; Start 09/05/16 at 17:00; Stop 09/09/16 at 08:55; Status DC Potassium Chloride 100 ml @ 50 mls/hr Q2H PRN IV For Potassium 3.3 - 3.5 mEq/L ; Start 09/05/16 at 17:00; Stop 09/09/16 at 08:56; Status DC Magnesium Sulfate/ Sodium Chloride (Magnesium Sulfate Inj/NS Inj) 100 ml @ 50 mls/hr UNSCH PRN IV For Magnesium 0.9 - 1.1 mg/dL; Start 09/05/16 at 17:00; Stop 09/09/16 at 08:56; Status DC Magnesium Oxide 800 mg 800 mg UNSCH PRN PO For Magnesium 1.2 - 1.6 mg/dL; Start 09/05/16 at 17:00; Stop 09/09/16 at 08:57; Status DC Magnesium Sulfate/ Sodium Chloride (Magnesium Sulfate Inj/NS Inj) 100 ml @ 50 mls/hr UNSCH PRN IV For Magnesium 1.2 - 1.6 mg/dL Last administered on 08:29; Start 09/05/16 at 17:00; Stop 09/09/16 at 08:57; Status DC Potassium Phosphate 2000 mg 2,000 mg Q4H PRN PO For Phosphorus < 2.5 mg/dL Last administered on 09/06/16 08:33; Start 09/05/16 at 17:00; Stop 09/09/16 at 08: 57; Status DC Sodium Phosphate/ Sodium Chloride (Sodium Phosphate Inj/NS 250 ml Inj) 250 ml @ 42 mls/hr UNSCH PRN IV For Phosphorus < 2.5 mg/dL; Start 09/05/16 at 17:00; Stop 09/13/16 at 08:39; Status DC Potassium Chloride (KCl 40 Meq/30 ml Liq) 40 meq UNSCH PRN PO/TUBE SEE LABEL COMMENTS; Start 09/05/16 at 17:00; Stop 09/09/16 at 08:57; Status DC Potassium Phosphate 2000 mg 2,000 mg UNSCH PRN PO/TUBE SEE LABEL COMMENTS; Start 09/05/16 at 17:00; Stop 09/09/16 at 08:57; Status DC Potassium Phosphate/Sodium Chloride (Potassium Phosphate Inj/NS 250 ml Inj) 260 ml @ 42 mls/hr UNSCH PRN IV SEE LABEL COMMENTS; Start 09/05/16 at 17:00; Stop 09/09/16 at 08:57; Status DC Chlorhexidine Gluconate (Peridex 0.12% Liq) 15 ml BID@08,20 MT Last administered on 09/08/16 08:00; Start 09/05/16 at 20:00 Dextrose (D50w (Vial) Inj) 25 ml UNSCH PRN IV PUSH HYPOGLYCEMIA-SEE COMMENTS; Start 09/05/16 at 17:00 Glucagon 1 mg 1 mg UNSCH PRN OTHER HYPOGLYCEMIA-SEE COMMENTS; Start 09/05/16 at 17:00 Piperacillin Sod/ Tazobactam Sod 100 ml @ 200 mls/hr Q6H IV Last administered on 09/15/16 01:53; Start 09/05/16 at 20:00 Azithromycin 500 mg/Sodium Chloride 250 ml @ 250 mls/hr Q24H IV Last administered on 09/14/16 12:09; Start 09/06/16 at 13:00 Vancomycin HCl 1250 mg/Sodium Chloride 262.5 ml @ 250 mls/hr ONCE ONCE IV ; Start 09/05/16 at 19:00; Stop 09/05/16 at 20:02; Status UNV Pharmacy Profile Note 0 ml @ 0 mls/hr UNSCH OTHER ; Start 09/05/16 at 19:00 Vancomycin HCl/ Sodium Chloride (Vancomycin Inj/ NS 250 ml Inj) 262.5 ml @ 250 mls/hr Q8H IV Last administered on 09/06/16 22:29; Start 09/05/16 at 22:00; Stop 09/07/16 at 11:59; Status DC Miscellaneous Information SPECIFIC LAB TO BE OSWALDO... ONCE ONCE XX ; Start at 21:45; Stop 09/06/16 at 21:46; Status DC Magnesium Sulfate/ Dextrose (Magnesium Sulfate 1 Gm Premix) 100 ml @ 100 mls/ hr Q1H IV ; Start 09/06/16 at 09:00; Stop 09/06/16 at 10:59; Status DC Acetaminophen/ Hydrocodone Bitart ([place] 10-325 Mg) 1 tab Q6H PO ; Start at 11:00; Stop 09/07/16 at 11:00; Status DC Methadone HCl 45 mg 45 mg DAILY PO Last administered on 09/07/16 11:45; Start 09/07/16 at 11:00; Stop 09/07/16 at 17:33; Status DC Vancomycin HCl/ Sodium Chloride (Vancomycin Inj/ NS 250 ml Inj) 250 ml @ 250 mls/hr Q8H IV Last administered on 09/08/16 12:10; Start 09/07/16 at 13:00; Stop 09/08/16 at 14:04; Status DC Miscellaneous Information SPECIFIC LAB TO BE DRAWN:VANCOMYCIN TROUGH DATE TO... ONCE ONCE XX Last administered on 09/08/16 12:05; Start 09/08/16 at 12:45; Stop 09/08/16 at 12:46; Status DC Propofol 100 ml @ 0 mls/hr TITRATE IV ; Start 09/07/16 at 13:00; Stop 09/07/16 at 13:41; Status DC Dexmedetomidine HCl 50 ml @ 0 mls/hr TITRATE IV Last administered on 09/08/16 08:45; Start 09/07/16 at 13:45; Stop 09/08/16 at 19:57; Status DC Propofol (Diprivan 1000 Mg/100ml Inj) 100 ml @ 0 mls/hr TITRATE IV ; Start at 13:45; Stop 09/08/16 at 19:57; Status DC Methadone HCl (Methadone Liq) 20 mg DAILY PO Last administered on 09/14/16 09 :39; Start 09/08/16 at 09:00 Lorazepam (Ativan Inj) 1 mg Q4H PRN IVP ANXIETY; Start 09/08/16 at 11:45; Stop 09/08/16 at 11:48; Status DC Acetaminophen (Ofirmev Inj) 1,000 mg Q6H PRN IV PAIN SCALE 7 TO 10; Start at 11:45; Stop 09/08/16 at 11:48; Status DC Albuterol/ Ipratropium 1 ampule 1 ampule TID NEB INH Last administered on 13:23; Start 09/08/16 at 14:00; Stop 09/12/16 at 14:00; Status DC Vancomycin HCl/ Sodium Chloride (Vancomycin Inj/ NS 250 ml Inj) 262.5 ml @ 250 mls/hr Q12H IV Last administered on 09/10/16 14:00; Start 09/09/16 at 01:00; Stop 09/10/16 at 18:00; Status DC Miscellaneous Information SPECIFIC LAB TO BE DRAWN:VANCOMY... ONCE ONCE XX ; Start 09/09/16 at 12:45; Stop 09/09/16 at 12:45; Status DC Miscellaneous Information SPECIFIC LAB TO BE DRAWN:VANCO TROUGH DATE TO BE DR... ONCE ONCE XX ; Start 09/10/16 at 12:45; Stop 09/10/16 at 12:46; Status DC Clonidine 0.1 mg 0.1 mg ONCE ONCE PO Last administered on 09/09/16 20:00; Start 09/09/16 at 20:00; Stop 09/09/16 at 20:01; Status DC Vancomycin HCl/ Sodium Chloride (Vancomycin Inj/ NS 500 ml Inj) 515 ml @ 250 mls/hr Q12H IV Last administered on 09/15/16 01:48; Start 09/11/16 at 02:00 Miscellaneous Information SPECIFIC LAB TO BE DRAWN:VANCOMYCIN TROUGH DATE TO... ONCE ONCE XX ; Start 09/12/16 at 13:45; Stop 09/12/16 at 13:46; Status DC Clonidine (Catapres) 0.1 mg HS PO Last administered on 09/14/16 21:01; Start 09/11/16 at 21:00 Enalaprilat (Vasotec Inj) 1.25 mg Q8H PRN IV PUSH SBP> OR = 180, DBP> OR = 100 ; Start 09/11/16 at 08:30 Albuterol Sulfate (Albuterol Concentrated Neb) 2.5 mg [employer] NEB Last administered on 09/12/16 15:22; Start 09/11/16 at 16:15; Stop 09/15/16 at 16:14 Lidocaine HCl (Lidocaine Pf 4% Neb) 3 ml [employer] NEB Last administered on 15:23; Start 09/11/16 at 16:15; Stop 09/15/16 at 16:14 Lidocaine HCl (Xylocaine 2% Inj) 50 ml STK-MED ONCE .ROUTE ; Start 09/12/16 at 14 :28; Stop 09/12/16 at 14:29; Status DC Epinephrine HCl (Adrenalin (1:1000) Inj) 1 mg STK-MED ONCE .ROUTE ; Start at 14:28; Stop 09/12/16 at 14:29; Status DC Sodium Chloride (Sodium Chloride 0.9% Inj) 20 ml STK-MED ONCE .ROUTE ; Start 09/12/16 at 14:34; Stop 09/12/16 at 14:35; Status DC Lidocaine HCl (Xylocaine 2% Inj) 50 ml STK-MED ONCE .ROUTE Last administered on 09/12/16 16:19; Start 09/12/16 at 14:34; Stop 09/12/16 at 14:35; Status DC Epinephrine HCl (Adrenalin (1:1000) Inj) 1 mg STK-MED ONCE .ROUTE ; Start at 14:34; Stop 09/12/16 at 14:35; Status DC Midazolam HCl (Versed Inj) 2 mg STK-MED ONCE .ROUTE ; Start 09/12/16 at 15:56; Stop 09/12/16 at 15:57; Status DC Lidocaine HCl (Xylocaine 2% Viscous) 15 ml STK-MED ONCE .ROUTE Last administered on 09/12/16t 16:18; Start 09/12/16 at 16:17; Stop 09/12/16 at 16:18; Status DC Fentanyl Citrate (fentaNYL INJ) 250 mcg STK-MED ONCE .ROUTE ; Start 09/12/16 at 16:49; Stop 09/12/16 at 16:50; Status DC Miscellaneous Information ALL NURSING DEPARTME... UNSCH PRN XX SEE LABEL COMMENTS; Start 09/12/16 at 17:30; Stop 09/13/16 at 17:29; Status DC Propofol (Diprivan 200 Mg/20 ml Inj) 600 mg STK-MED ONCE IV ; Start 09/12/16 at 12:00; Stop 09/13/16 at 08:34; Status DC Pantoprazole Sodium (Protonix) 40 mg DAILY PO Last administered on 09/14/16 09 :38; Start 09/13/16 at 09:00 A/P Assessment and Plan A/P Toxic Encephalopathy-improved. Suicidal ideations Multiple suicide attempts Chronic Pain Patient's prescription medications include Seroquel, symptomatology suspicious for overdose-confirmed by patient and family postextubation Patient previously on methadone 45 mg daily complaining of pain methadone reinitiated a decreased dose 20 mg daily- f/u with methadone clinic psych consult appreciated and cleared the patient for discharge. Acute hypoxemic respiratory failure- resolved Multilobular Pneumonia CXR 3/2-questionable infiltrate right mid lung, possible pneumonia CT chest 3/2-complete left lower lobe opacification, right upper lobe possible pneumonia s/p bronchoscopy which was unremarkable; culture with light growth normal respiratory martin stop empiric Abx- change to po levaquin continue neb treatment Sinus tachycardia- improved Hypertension on clonidine at home; resumed. Prophylaxis: GI Prophylaxis Pepcid DVT Prophylaxis -- SCDs Lovenox 40 mg /day Discharge Planning dc home today with f/u with pcp and pulmonary. see med list. d/w the patient and RN. time spent 31 min. Audrey Luevano MD Sep 15, 2016 08:27
[2016-09-15] MEDS: PANTOPRAZOLE SOD 40 MG DELAYED RELEASE TAB PO SCH (08:36)
[2016-09-15] MEDS: SODIUM CHLORIDE 0.9% FLUSH 5 ML FLUSH IV FLUSH SCH (08:37)
[2016-09-15] MEDS: METHADONE HCL 10 MG/10 ML ORAL SOLUTION PO SCH (08:37)
[2016-09-15] MEDS ORDERED: LEVA500T PO (08:38)
--- NOTE | 2016-11-20 10:14 | MR ---
cc: ROSE ROSE DATE OF PROCEDURE 09/12/2016 PROCEDURE PERFORMED Fiberoptic bronchoscopy flexible PROCEDURE NOTE Fiberoptic bronchoscopy was performed via LMA. Vocal cords intact. Trachea mildly hyperemic. Indu sharp. Right mainstem bronchus, right upper, middle and lower lobe, left main bronchus, left upper lower lobes inspected. No evidence of airway obstruction or mass lesion identified. Left main bronchus somewhat inflamed and narrowed, but no gross obstruction identified. Washings obtained from both sides of the tracheobronchial tree. Brushings obtained left main bronchus. The procedure well tolerated. The patient transferred to recovery in stable condition. IMPRESSION 1. Mild to moderate tracheobronchitis 2. No obstruction or mass lesion. 3. Samples obtained as above. 4. Procedure well tolerated. 5. The patient transferred recovery stable condition. Rose Rose MD WWW/[place] /9:33 AM /9:59 AM
== END 2016-09-15 12:35 | disposition home or self-care (01) | DRG 917 ==
LOC: NEPC 08:33 → NEDH 16:10 → HIME 21:15 → HCIS 09-09 17:50
PROVIDERS: ADMIT Internal Medicine; ATTEND Internal Medicine
PROC: 5A1945Z Respiratory Ventilation, 24-96 Consecutive Hours (ICD-10-PCS; principal; 2016-09-05)
PROC: 0BH17EZ Insertion of Endotracheal Airway into Trachea, Via Natural or Artificial Opening (ICD-10-PCS; 2016-09-05)
PROC: 0BB78ZX Excision of Left Main Bronchus, Via Natural or Artificial Opening Endoscopic, Diagnostic (ICD-10-PCS; 2016-09-12)
DX: T43.591A Poisoning by other antipsychotics and neuroleptics, accidental (unintentional), initial encounter (principal); J96.01 Acute respiratory failure with hypoxia; G92 Toxic encephalopathy; J18.9 Pneumonia, unspecified organism; R45.851 Suicidal ideations; N30.01 Acute cystitis with hematuria; F11.20 Opioid dependence, uncomplicated; T40.3X1A Poisoning by methadone, accidental (unintentional), initial encounter; R00.0 Tachycardia, unspecified; I10 Essential (primary) hypertension; G89.29 Other chronic pain; M54.9 Dorsalgia, unspecified; F17.210 Nicotine dependence, cigarettes, uncomplicated; F31.9 Bipolar disorder, unspecified; Z78.1 Physical restraint status; Z91.5 Personal history of self-harm
CPT/HCPCS: 31500; 36600; 70450; 71010; 71275; 74177; 76937; 80048; 80053; 80074; 80076; 80202; 80307; 80320; 80329; 81001; 82140; 82533; 82550; 82552; 82565; 82805; 82948; 83605; 83735; 84100; 85025; 85027; 85730; 87015; 87040; 87070; 87086; 87102; 87116; 87205; 87206; 87641; 93005; 94002; 94003; 94640; 94664; 96361; 96365; C9399; G0480; G0481; J0171; J0330; J0456; J1650; J1956; J2250; J2310; J2405; J2543; J3010; J3370; J3475; J7030; J7040; J7050; J7611; Q9967